=== PATIENT | female | born 1965 | race Caucasian/White ===

== ENCOUNTER → 2020-09-19 15:01 | Outpatient (BNVA) | payer MEDICARE, MEDICAID, SELFPAY | PROVIDERS: PCP Internal Medicine; Visit Provider Dietitian, Registered | DX: Z76.89 Persons encountering health services in other specified circumstances (principal) ==

== ENCOUNTER 2020-09-25 10:37 | Outpatient (REF) | payer MEDICARE, MEDICAID, SELFPAY ==
--- NOTE | 2020-09-25 | MM_ITS ---
EXAMINATION: MM SCREENING DIGITAL BREAST TOMOSYNTHESIS, BILATERAL CLINICAL INFORMATION: Screening. Asymptomatic. The lifetime risk of breast cancer based on the Tyrer-Cuzick Model is 10.8%. COMPARISON: Mammography: 08/24/2019 and multiple previous mammograms dated back to 07/20/2015 TECHNIQUE: Digital breast tomosynthesis is performed in both the craniocaudal and mediolateral oblique views along with computer-aided detection (CAD). Synthesized 2D images are generated from the tomosynthesis. FINDINGS: There are scattered areas of fibroglandular density (ACR BI-RADS breast composition Category b). Left breast: No suspicious masses, calcifications or other abnormalities are seen. Arterial calcifications are noted. Compared to the last study, no significant interval change is noted. Right breast: On craniocaudal view small portion of the anterior most breast is not imaged. No evidence of suspicious masses, calcifications or other abnormalities in the remainder of the breast. Arterial calcifications are noted. MM/MM tomosynthesis screening BI IMPRESSION: 1. No mammographic evidence of malignancy in the left breast. 2. More portion of the anterior right breast is not imaged on craniocaudal view. No mammographic evidence of malignancy in the remainder of the right breast. ASSESSMENT: BI-RADS 0: Incomplete - Need Additional Imaging Evaluation RECOMMENDATION: Technical recall. Repeat right craniocaudal view is recommended.
== END 2020-09-25 10:38 | disposition home or self-care (01) ==
LOC: HO.MAMMO 10:37
PROVIDERS: PCP Internal Medicine; Visit Provider Internal Medicine
DX: Z12.31 Encounter for screening mammogram for malignant neoplasm of breast (principal)
CPT/HCPCS: 77063; 77067

== ENCOUNTER → 2020-09-29 11:00 | Outpatient (BNV) | payer MEDICARE, MEDICAID, SELFPAY | PROVIDERS: PCP Internal Medicine; Visit Provider Internal Medicine Medical Oncology | DX: I26.99 Other pulmonary embolism without acute cor pulmonale (principal) | CPT/HCPCS: 99212; 99213; 99214; 99443 ==

== ENCOUNTER 2020-11-16 09:41 | Outpatient (REF) | payer MEDICARE, MEDICAID, SELFPAY ==
[2020-11-16 11:40] LABS: Alanine Aminotransferase 30 U/L (0-31); Aspartate Amino Transferase 32 U/L (5-31); Cholesterol 197 mg/dL; HDL Cholesterol 74 mg/dL; LDL Cholesterol Calculated 100 mg/dl; Triglycerides 119 mg/dL
== END 2020-11-16 09:42 | disposition home or self-care (01) ==
LOC: HO.HMGCLDS 09:41
PROVIDERS: PCP Internal Medicine; Visit Provider Internal Medicine
DX: I10 Essential (primary) hypertension (principal); E78.5 Hyperlipidemia, unspecified
CPT/HCPCS: 80061; 84450; 84460

== ENCOUNTER → 2020-11-28 09:13 | Outpatient (BNVA) | payer MEDICARE, MEDICAID, SELFPAY | PROVIDERS: PCP Internal Medicine; Referring Provider Internal Medicine; Visit Provider Dietitian, Registered | DX: Z76.89 Persons encountering health services in other specified circumstances (principal) ==

== ENCOUNTER → 2021-01-02 13:33 | Outpatient (BNVA) | payer MEDICARE, MEDICAID, SELFPAY | PROVIDERS: PCP Internal Medicine; Visit Provider Dietitian, Registered ==

== ENCOUNTER → 2021-03-20 08:11 | Outpatient (BNVA) | payer MEDICARE, MEDICAID, SELFPAY | PROVIDERS: PCP Internal Medicine; Visit Provider Dietitian, Registered ==

== ENCOUNTER 2021-03-21 09:51 | Outpatient (REF) | payer MEDICARE, MEDICAID, SELFPAY ==
[2021-03-21 11:31] LABS: MANUAL DIFF FLAG NO
[2021-03-21 11:50] LABS: Basophils Percent Auto 0.2 % (0-2); Eosinophils Absolute Auto 0.1 X10*3/uL (0.0-0.4); Eosinophils Percent Auto 1.4 % (0-4); Hematocrit 39.7 % (37-47); Hemoglobin 12.7 g/dl (12.0-16.0); Imm Gran Abs Auto 0.01 X10*3/uL (0.00-0.03); Imm Gran Pct Auto 0.2 % (0.0-0.4); Lymphocytes Absolute Auto 2.1 X10*3/uL (1.2-4.9); Lymphocytes Percent Auto 36.2 % (20-40); Mean Corpuscular Hemoglobin 26.7 pg (27.0-33.0); Mean Corpuscular Volume 83.4 fL (80-98); Mean Platelet Volume 9.1 fL (9.4-12.3); Monocytes Absolute Auto 0.4 X10*3/uL (0.1-1.2); Monocytes Percent Auto 7.4 % (2-11); Neutrophils Absolute Auto 3.1 X10*3/uL (2.0-8.3); Neutrophils Percent Auto 54.6 % (45-73); Platelet Count 381 X10*3/uL (160-400); Red Blood Count 4.76 X10*6/uL (4.20-5.50); Red Cell Distribution Width 15.7 % (11.0-16.0); White Blood Count 5.7 X10*3/uL (4.8-10.8)
[2021-03-21 11:54] LABS: D Dimer 303 NG/ML
[2021-03-21 12:08] LABS: Alanine Aminotransferase 18 U/L (0-31); Albumin Level 4.1 g/dL (3.5-5.0); Alkaline Phosphatase 100 U/L (39-117); Anion Gap 14 (12-20); Aspartate Amino Transferase 23 U/L (5-31); Bilirubin Total 0.7 mg/dL (0.0-1.0); Blood Urea Nitrogen 21 mg/dL (9-16); Calcium 9.1 mg/dL (8.4-10.2); Carbon Dioxide 21 mmol/L (22-29); Chloride 109 mmol/L (96-108); Cholesterol 180 mg/dL; Estimated Glomerular Filt Rate > 60; Glucose Fasting 97 mg/dL (60-99); HDL Cholesterol 73 mg/dL; LDL Cholesterol Calculated 87 mg/dl; Potassium 4.2 mmol/L (3.3-5.1); Sodium 140 mmol/L (135-145); Total Protein 6.7 g/dL (6.5-8.0); Triglycerides 103 mg/dL
[2021-03-21 12:31] LABS: Vitamin D 25-OH Total 32.6 ng/mL (>30)
== END 2021-03-21 09:52 | disposition home or self-care (01) ==
LOC: HO.HMGCLDS 09:51
PROVIDERS: Internal Medicine Medical Oncology; PCP Internal Medicine; Visit Provider Internal Medicine
DX: I26.99 Other pulmonary embolism without acute cor pulmonale (principal); E78.5 Hyperlipidemia, unspecified; I10 Essential (primary) hypertension; J30.2 Other seasonal allergic rhinitis; Z78.0 Asymptomatic menopausal state
CPT/HCPCS: 36415; 80048; 80053; 80061; 82306; 85025; 85379

== ENCOUNTER 2021-04-27 08:52 | Outpatient (REF) | payer MEDICARE, MEDICAID, SELFPAY ==
[2021-04-28 09:42] LABS: CT PCR NOT DETECTED (Not Detect.); NG PCR NOT DETECTED (Not Detect.)
[2021-05-04 09:27] LABS: HPV mRNA E6/E7 rflx Not Detected (Not Detected)
== END 2021-04-27 08:53 | disposition home or self-care (01) ==
LOC: HO.LAB 08:52
PROVIDERS: PCP Internal Medicine; Visit Provider Obstetrics & Gynecology
DX: Z01.419 Encounter for gynecological examination (general) (routine) without abnormal findings (principal); Z11.3 Encounter for screening for infections with a predominantly sexual mode of transmission; Z11.51 Encounter for screening for human papillomavirus (HPV)
CPT/HCPCS: 87491; 87591; 87624; 88142

== ENCOUNTER → 2021-05-21 08:20 | Outpatient (BNVA) | payer MEDICARE, MEDICAID, SELFPAY | PROVIDERS: PCP Internal Medicine; Visit Provider Physician Assistant ==

== ENCOUNTER 2021-07-03 14:21 | Outpatient (REF) | payer MEDICARE, MEDICAID, SELFPAY ==
[2021-07-03 15:23] LABS: Estimated Average Glucose 108 mg/dL; Hemoglobin A1c % 5.4 %
[2021-07-03 15:40] LABS: Alanine Aminotransferase 18 U/L (0-31); Aspartate Amino Transferase 22 U/L (5-31); Iron 51 mcg/dL (30-160)
[2021-07-03 15:55] LABS: Percent Iron Saturation 9 % (15-50); Total Iron Binding Capacity 543 mcg/dL (228-428); Unsaturated Iron Binding 492 ug/dL
[2021-07-03 16:07] LABS: Folate 18.5 ng/mL (> or = 4.0); Vitamin B12 904 pg/mL (200-900)
[2021-07-03 16:15] LABS: Ferritin 12 ng/mL (10-250)
[2021-07-07 02:56] LABS: Zinc 63 mcg/dL (60-130)
[2021-07-07 10:22] LABS: Vitamin B1 44 nmol/L (8-30)
[2021-07-09 05:02] LABS: Vitamin A 58 mcg/dL (38-98)
== END 2021-07-03 14:22 | disposition home or self-care (01) ==
LOC: HO.LAB 14:21
PROVIDERS: PCP Internal Medicine; Visit Provider Physician Assistant
DX: E66.9 Obesity, unspecified (principal); E78.5 Hyperlipidemia, unspecified; I10 Essential (primary) hypertension; J30.2 Other seasonal allergic rhinitis; Z98.84 Bariatric surgery status; Z79.899 Other long term (current) drug therapy; Z68.39 Body mass index [BMI] 39.0-39.9, adult
CPT/HCPCS: 36415; 82607; 82728; 82746; 83036; 83540; 84425; 84450; 84460; 84590; 84630; 99212

== ENCOUNTER → 2021-07-10 14:22 | Outpatient (BNVA) | payer MEDICARE, MEDICAID, SELFPAY | PROVIDERS: PCP Internal Medicine; Referring Provider Internal Medicine; Visit Provider Internal Medicine | DX: Q21.1 Atrial septal defect (principal); I25.3 Aneurysm of heart; E66.01 Morbid (severe) obesity due to excess calories; Z86.711 Personal history of pulmonary embolism | CPT/HCPCS: 93005; 99212 ==

== ENCOUNTER → 2021-09-21 08:44 | Outpatient (BNVA) | payer MEDICARE, MEDICAID, SELFPAY | PROVIDERS: PCP Internal Medicine; Visit Provider Dietitian, Registered | DX: E66.9 Obesity, unspecified (principal) | CPT/HCPCS: 97803 ==

== ENCOUNTER 2021-10-02 09:19 | Outpatient (REF) | payer MEDICARE, MEDICAID, SELFPAY ==
[2021-10-02 12:22] LABS: Alanine Aminotransferase 17 U/L (0-31); Aspartate Amino Transferase 20 U/L (5-31); Cholesterol 211 mg/dL; HDL Cholesterol 70 mg/dL; LDL Cholesterol Calculated 110 mg/dl; Triglycerides 155 mg/dL
== END 2021-10-02 09:20 | disposition home or self-care (01) ==
LOC: HO.HMGCLDS 09:19
PROVIDERS: PCP Internal Medicine; Visit Provider Internal Medicine
DX: E78.00 Pure hypercholesterolemia, unspecified (principal)
CPT/HCPCS: 36415; 80061; 84450; 84460

== ENCOUNTER 2021-11-02 10:10 | Outpatient (REF) | payer MEDICARE, MEDICAID, SELFPAY ==
--- NOTE | ~2021-11-02 | MM_ITS ---
EXAMINATION: MM SCREENING DIGITAL BREAST TOMOSYNTHESIS, BILATERAL CLINICAL INFORMATION: Screening. Asymptomatic. The lifetime risk of breast cancer based on the Tyrer-Cuzick Model is 11%. COMPARISON: Mammography: 09/25/2020, 08/31/2019, 08/26/2018 TECHNIQUE: Digital breast tomosynthesis is performed in both the craniocaudal and mediolateral oblique views along with computer-aided detection (CAD). Synthesized 2D images are generated from the tomosynthesis. Additional bilateral CC, right MLO, and left MLO x2 views are provided. FINDINGS: There are scattered areas of fibroglandular density (ACR BI-RADS breast composition Category b). Breast tissue composition borders on predominantly fatty. Parenchymal pattern and background stromal markings are similar to previous exams. No developing density. No significant mass or architectural abnormality or abnormal calcifications. MM/MM tomosynthesis screening BI IMPRESSION: No mammographic evidence of malignancy. ASSESSMENT: BI-RADS 1: Negative RECOMMENDATION: Routine annual mammography screening. This patient's information was entered into a reminder system with a target due date for their next mammogram.
== END 2021-11-02 10:11 | disposition home or self-care (01) ==
LOC: HO.MAMMO 10:10
PROVIDERS: Visit Provider Internal Medicine
DX: Z12.31 Encounter for screening mammogram for malignant neoplasm of breast (principal)
CPT/HCPCS: 77063; 77067

== ENCOUNTER 2021-11-27 10:37 | Outpatient (REF) | payer MEDICARE, MEDICAID, SELFPAY | END 2021-11-27 10:38 | disposition home or self-care (01) | LOC: HO.WFDLDS 10:37 | PROVIDERS: Visit Provider Internal Medicine | DX: Z20.822 Contact with and (suspected) exposure to COVID-19 (principal) | CPT/HCPCS: C9803; U0003; U0005 ==

== ENCOUNTER 2022-04-19 11:25 | Outpatient (REF) | payer MEDICARE, MEDICAID, SELFPAY ==
[2022-04-19 13:23] LABS: Iron 55 mcg/dL (30-160); Percent Iron Saturation 11 % (15-50); Total Iron Binding Capacity 514 mcg/dL (228-428); Unsaturated Iron Binding 459 ug/dL
[2022-04-19 13:43] LABS: Vitamin D 25-OH Total 26.3 ng/mL (>30)
[2022-04-19 14:38] LABS: Folate 9.5 ng/mL (> or = 4.0); Vitamin B12 351 pg/mL (200-900)
[2022-04-24 06:05] LABS: Zinc 59 mcg/dL (60-130)
[2022-04-24 16:00] LABS: Vitamin B1 10 nmol/L (8-30)
[2022-04-24 20:46] LABS: Vitamin A 38 mcg/dL (38-98)
== END 2022-04-19 11:26 | disposition home or self-care (01) ==
LOC: HO.LAB 11:25
PROVIDERS: PCP Internal Medicine; Referring Provider Internal Medicine; Visit Provider Physician Assistant Surgical
DX: E66.9 Obesity, unspecified (principal); Z98.84 Bariatric surgery status; Z79.899 Other long term (current) drug therapy; Z71.3 Dietary counseling and surveillance
CPT/HCPCS: 36415; 82306; 82607; 82746; 83540; 84425; 84590; 84630; 99212

== ENCOUNTER 2022-05-01 09:41 | Outpatient (REF) | payer MEDICARE, MEDICAID, SELFPAY ==
[2022-05-01 09:58] LABS: MANUAL DIFF FLAG NO
[2022-05-01 10:03] LABS: Basophils Percent Auto 0.3 % (0-2); Eosinophils Absolute Auto 0.1 X10*3/uL (0.0-0.4); Eosinophils Percent Auto 1.4 % (0-4); Hematocrit 40.9 % (37.0-47.0); Hemoglobin 13.1 g/dl (12.0-16.0); Imm Gran Abs Auto 0.02 X10*3/uL (0.00-0.03); Imm Gran Pct Auto 0.3 % (0.0-0.4); Lymphocytes Absolute Auto 1.6 X10*3/uL (1.2-4.9); Lymphocytes Percent Auto 22.5 % (20-40); Mean Corpuscular Hemoglobin 26.6 pg (27.0-33.0); Mean Platelet Volume 8.8 fL (9.4-12.3); Monocytes Absolute Auto 0.5 X10*3/uL (0.1-1.2); Monocytes Percent Auto 6.6 % (2-11); Neutrophils Absolute Auto 4.9 x10*3/uL (2.0-8.3); Neutrophils Percent Auto 68.9 % (45-73); Platelet Count 401 X10*3/uL (160-400); Red Blood Count 4.93 X10*6/uL (4.20-5.50); Red Cell Distribution Width 15.2 % (11.0-16.0); White Blood Count 7.1 X10*3/uL (4.8-10.8)
[2022-05-01 10:20] LABS: D Dimer High Sensitivity < 150 NG/ML
[2022-05-01 10:57] LABS: Alanine Aminotransferase 14 U/L (0-31); Albumin Level 4.3 g/dL (3.5-5.0); Alkaline Phosphatase 108 U/L (39-117); Anion Gap 16 (12-20); Aspartate Amino Transferase 20 U/L (5-31); Bilirubin Total 0.7 mg/dL (0.0-1.0); Blood Urea Nitrogen 25 mg/dL (9-16); Calcium 9.5 mg/dL (8.4-10.2); Carbon Dioxide 19 mmol/L (22-29); Chloride 110 mmol/L (96-108); Estimated Glomerular Filt Rate > 60; Glucose Random 95 mg/dL (60-115); Potassium 4.5 mmol/L (3.3-5.1); Sodium 140 mmol/L (135-145)
== END 2022-05-01 09:42 | disposition home or self-care (01) ==
LOC: HO.LAB 09:41
PROVIDERS: PCP Internal Medicine; Visit Provider Internal Medicine Medical Oncology
DX: I26.99 Other pulmonary embolism without acute cor pulmonale (principal)
CPT/HCPCS: 36415; 80053; 85025; 85379

== ENCOUNTER → 2022-05-20 13:54 | Outpatient (BNVA) | payer MEDICARE, MEDICAID, SELFPAY | PROVIDERS: PCP Internal Medicine; Visit Provider Dietitian, Registered | DX: E66.01 Morbid (severe) obesity due to excess calories (principal); Z68.41 Body mass index [BMI] 40.0-44.9, adult; Z98.84 Bariatric surgery status; Z71.3 Dietary counseling and surveillance | CPT/HCPCS: 97803 ==

== ENCOUNTER 2022-05-24 08:00 | Outpatient (RCR) | payer MEDICARE, MEDICAID, SELFPAY | END 2022-05-24 09:13 | disposition home or self-care (01) | LOC: HO.PT 08:00 | PROVIDERS: PCP Internal Medicine; Visit Provider Orthopaedic Surgery | DX: M25.562 Pain in left knee (principal) | CPT/HCPCS: 97110; 97116; 97140; 97161; 97530 ==

== ENCOUNTER → 2022-07-11 14:19 | Outpatient (BNVA) | payer MEDICARE, MEDICAID, SELFPAY | PROVIDERS: PCP Internal Medicine; Referring Provider Internal Medicine; Visit Provider Internal Medicine | DX: Q21.1 Atrial septal defect (principal); I25.3 Aneurysm of heart; E66.01 Morbid (severe) obesity due to excess calories; Z86.711 Personal history of pulmonary embolism | CPT/HCPCS: 93005; 99212 ==

== ENCOUNTER 2022-07-31 09:16 | Outpatient (REF) | payer MEDICARE, MEDICAID, SELFPAY ==
[2022-07-31 12:02] LABS: Cholesterol 195 mg/dL; HDL Cholesterol 69 mg/dL; LDL Cholesterol Calculated 102 mg/dl; Triglycerides 123 mg/dL
== END 2022-07-31 09:17 | disposition home or self-care (01) ==
LOC: HO.HMGCLDS 09:16
PROVIDERS: PCP Internal Medicine; Visit Provider Internal Medicine Medical Oncology
DX: E78.00 Pure hypercholesterolemia, unspecified (principal); Z86.711 Personal history of pulmonary embolism
CPT/HCPCS: 36415; 80061

== ENCOUNTER → 2022-08-06 08:43 | Outpatient (BNVA) | payer MEDICARE, MEDICAID, SELFPAY | PROVIDERS: PCP Internal Medicine; Visit Provider Dietitian, Registered | DX: E66.01 Morbid (severe) obesity due to excess calories (principal); Z68.41 Body mass index [BMI] 40.0-44.9, adult; Z71.3 Dietary counseling and surveillance | CPT/HCPCS: 97803 ==

== ENCOUNTER → 2022-08-21 17:00 | Outpatient (BNVA) | payer MEDICARE, MEDICAID, SELFPAY | PROVIDERS: PCP Internal Medicine; Visit Provider Counselor Mental Health | DX: F32.A Depression, unspecified (principal); Z98.84 Bariatric surgery status | CPT/HCPCS: 90853 ==

== ENCOUNTER → 2022-09-18 17:00 | Outpatient (BNVA) | payer MEDICARE, MEDICAID, SELFPAY | PROVIDERS: PCP Internal Medicine; Visit Provider Counselor Mental Health | DX: F32.A Depression, unspecified (principal); Z98.84 Bariatric surgery status | CPT/HCPCS: 90853 ==

== ENCOUNTER 2022-11-05 10:14 | Outpatient (REF) | payer MEDICARE, MEDICAID, SELFPAY ==
--- NOTE | ~2022-11-05 | MM_ITS ---
EXAMINATION: MM SCREENING DIGITAL BREAST TOMOSYNTHESIS, BILATERAL CLINICAL INFORMATION: Screening. Asymptomatic. The lifetime risk of breast cancer based on the Tyrer-Cuzick Model is 19.9%. Additional annual screening with breast MRI may be of benefit in women with a score of 20% or greater. COMPARISON: Mammography: November 02, 2021 and studies dating back to July 22, 2016 TECHNIQUE: Digital breast tomosynthesis is performed in both the craniocaudal and mediolateral oblique views along with computer-aided detection (CAD). Synthesized 2D images are generated from the tomosynthesis. FINDINGS: There are scattered areas of fibroglandular density (ACR BI-RADS breast composition Category b). There are no significant masses, abnormal calcifications, or other abnormalities. MM/MM tomosynthesis screening BI IMPRESSION: No significant changes from prior exam. ASSESSMENT: BI-RADS 1: Negative RECOMMENDATION: Routine annual mammography screening. This patient's information was entered into a reminder system with a target due date for their next mammogram.
== END 2022-11-05 10:15 | disposition home or self-care (01) ==
LOC: HO.MAMMO 10:14
PROVIDERS: PCP Internal Medicine; Visit Provider Internal Medicine
DX: Z12.31 Encounter for screening mammogram for malignant neoplasm of breast (principal)
CPT/HCPCS: 77063; 77067

== ENCOUNTER 2022-11-07 10:00 | Outpatient (RCR) | payer MEDICARE, MEDICAID, SELFPAY ==
--- NOTE | 2022-11-11 11:09 | MHC.PT.DC ---
[facility] [place] Office [place] Office [place] Office [address] Adali Guan [address] [phone] F: [phone] F: [phone] F: [phone] F: [phone] Physical Therapy Discharge Report Diagnosis: L TKA Date of Surgery: 08/27/2022 Date of Evaluation: 09/06/22 Date of Discharge: 11/07/22 Treatments to Date: 17 Cancellations to Date: No Shows to Date: Discharge Status: Achieved Goals Improved Function Independent with HEP Discharge Summary: Pt independent w/HEP and AROM WFL'S Flex/Ext. -Strength =5/5 in Flex/Ext -Significant improvement w/SPADI Discharged to HEP. Electronically signed by: Amilcar Padron, PT, DPT Please sign and return to therapist. Thank you for your referral.
== END 2022-11-11 11:11 | disposition home or self-care (01) ==
LOC: HO.PT 10:00
PROVIDERS: PCP Internal Medicine; Visit Provider Nurse Practitioner
DX: Z96.652 Presence of left artificial knee joint (principal)
CPT/HCPCS: 97110; 97140; 97162; 97530

== ENCOUNTER 2022-12-06 06:47 | Outpatient (REF) | payer MEDICARE, MEDICAID, SELFPAY ==
[2022-12-06 11:57] LABS: Estimated Average Glucose 108 mg/dL; Hemoglobin A1c % 5.4 %
[2022-12-06 12:33] LABS: Alanine Aminotransferase 14 U/L (0-31); Anion Gap 13 (12-20); Aspartate Amino Transferase 17 U/L (5-31); Blood Urea Nitrogen 18 mg/dL (9-16); Carbon Dioxide 23 mmol/L (22-29); Chloride 108 mmol/L (96-108); Cholesterol 188 mg/dL; Estimated Glomerular Filt Rate > 60; Glucose Fasting 94 mg/dL (60-99); HDL Cholesterol 76 mg/dL; LDL Cholesterol Calculated 96 mg/dl; Potassium 4.2 mmol/L (3.3-5.1); Sodium 140 mmol/L (135-145); Triglycerides 84 mg/dL
[2022-12-06 12:49] LABS: Vitamin D 25-OH Total 27.8 ng/mL (>30)
== END 2022-12-06 06:48 | disposition home or self-care (01) ==
LOC: HO.HMGCLDS 06:47
PROVIDERS: PCP Internal Medicine; Visit Provider Internal Medicine
DX: E66.01 Morbid (severe) obesity due to excess calories (principal); F32.9 Major depressive disorder, single episode, unspecified; I10 Essential (primary) hypertension; E78.5 Hyperlipidemia, unspecified; R73.01 Impaired fasting glucose
CPT/HCPCS: 36415; 80048; 80061; 82306; 83036; 84450; 84460

== ENCOUNTER 2023-01-07 09:46 | Outpatient (REF) | payer MEDICARE, MEDICAID, SELFPAY ==
[2023-01-07 11:28] LABS: MANUAL DIFF FLAG NO
[2023-01-07 11:34] LABS: Basophils Percent Auto 0.2 % (0-2); Eosinophils Absolute Auto 0.2 X10*3/uL (0.0-0.4); Eosinophils Percent Auto 3.8 % (0-4); Hematocrit 38.7 % (37.0-47.0); Hemoglobin 12.2 g/dl (12.0-16.0); Imm Gran Abs Auto 0.02 X10*3/uL (0.00-0.03); Imm Gran Pct Auto 0.4 % (0.0-0.4); Lymphocytes Absolute Auto 1.6 X10*3/uL (1.2-4.9); Lymphocytes Percent Auto 28.4 % (20-40); Mean Corpuscular HGB Conc 31.5 g/dl (31.0-35.0); Mean Corpuscular Hemoglobin 24.3 pg (27.0-33.0); Mean Corpuscular Volume 77.1 fL (80.0-98.0); Mean Platelet Volume 9.3 fL (9.4-12.3); Monocytes Absolute Auto 0.4 X10*3/uL (0.1-1.2); Monocytes Percent Auto 6.9 % (2-11); Neutrophils Absolute Auto 3.3 x10*3/uL (2.0-8.3); Neutrophils Percent Auto 60.3 % (45-73); Platelet Count 415 X10*3/uL (160-400); Red Blood Count 5.02 X10*6/uL (4.20-5.50); White Blood Count 5.5 X10*3/uL (4.8-10.8)
[2023-01-07 11:38] LABS: D Dimer High Sensitivity 460 NG/ML
[2023-01-07 12:07] LABS: Alanine Aminotransferase 13 U/L (0-31); Albumin Level 4.2 g/dL (3.5-5.0); Alkaline Phosphatase 119 U/L (39-117); Anion Gap 15 (12-20); Aspartate Amino Transferase 18 U/L (5-31); Bilirubin Total 0.6 mg/dL (0.0-1.0); Blood Urea Nitrogen 21 mg/dL (9-16); Calcium 9.3 mg/dL (8.4-10.2); Carbon Dioxide 22 mmol/L (22-29); Chloride 107 mmol/L (96-108); Estimated Glomerular Filt Rate > 60; Glucose Random 99 mg/dL (60-115); Potassium 4.3 mmol/L (3.3-5.1); Sodium 140 mmol/L (135-145); Total Protein 6.7 g/dL (6.5-8.0)
== END 2023-01-07 09:47 | disposition home or self-care (01) ==
LOC: HO.HMGCLDS 09:46
PROVIDERS: PCP Internal Medicine; Visit Provider Internal Medicine Medical Oncology
DX: Z86.711 Personal history of pulmonary embolism (principal)
CPT/HCPCS: 36415; 80053; 85025; 85379

== ENCOUNTER 2023-03-18 07:45 | Outpatient (REF) | payer MEDICARE, MEDICAID, SELFPAY ==
[2023-03-18 12:05] LABS: Estimated Average Glucose 108 mg/dL; Hemoglobin A1c % 5.4 %
[2023-03-18 12:51] LABS: Alanine Aminotransferase 16 U/L (0-31); Anion Gap 14 (12-20); Aspartate Amino Transferase 18 U/L (5-31); Blood Urea Nitrogen 18 mg/dL (9-16); Calcium 9.2 mg/dL (8.4-10.2); Carbon Dioxide 23 mmol/L (22-29); Chloride 107 mmol/L (96-108); Cholesterol 195 mg/dL; Estimated Glomerular Filt Rate > 60; Glucose Fasting 95 mg/dL (60-99); HDL Cholesterol 74 mg/dL; LDL Cholesterol Calculated 101 mg/dl; Potassium 4.2 mmol/L (3.3-5.1); Sodium 140 mmol/L (135-145); Triglycerides 103 mg/dL
== END 2023-03-18 07:46 | disposition home or self-care (01) ==
LOC: HO.HMGCLDS 07:45
PROVIDERS: PCP Internal Medicine; Visit Provider Internal Medicine
DX: E66.01 Morbid (severe) obesity due to excess calories (principal); E78.00 Pure hypercholesterolemia, unspecified; F32.A Depression, unspecified; I10 Essential (primary) hypertension
CPT/HCPCS: 36415; 80048; 80061; 82306; 83036; 84450; 84460

== ENCOUNTER → 2023-05-02 13:42 | Outpatient (BNVA) | payer MEDICARE, MEDICAID, SELFPAY | PROVIDERS: PCP Internal Medicine; Visit Provider Physician Assistant Surgical | DX: E66.9 Obesity, unspecified (principal); Z68.39 Body mass index [BMI] 39.0-39.9, adult; Z98.84 Bariatric surgery status | CPT/HCPCS: 99212 ==

== ENCOUNTER 2023-05-06 11:58 | Outpatient (REF) | payer MEDICARE, MEDICAID, SELFPAY ==
[2023-05-06 14:16] LABS: Folate 6.3 ng/mL (> or = 4.0); Vitamin B12 360 pg/mL (200-900)
[2023-05-07 13:24] LABS: Calcium (PTHI) 10.1 mg/dL (8.6-10.4); PTHI 53 pg/mL (16-77)
[2023-05-10 00:18] LABS: Zinc 59 mcg/dL (60-130)
[2023-05-12 01:37] LABS: Vitamin A 54 mcg/dL (38-98)
[2023-05-13 15:18] LABS: Vitamin B1 72 nmol/L (8-30)
== END 2023-05-06 11:59 | disposition home or self-care (01) ==
LOC: HO.LAB 11:58
PROVIDERS: PCP Internal Medicine; Visit Provider Physician Assistant Surgical
DX: Z98.84 Bariatric surgery status (principal)
CPT/HCPCS: 36415; 82607; 82746; 83970; 84425; 84590; 84630

== ENCOUNTER 2023-07-08 09:23 | Outpatient (REF) | payer MEDICARE, MEDICAID, SELFPAY ==
[2023-07-08 11:34] LABS: Estimated Average Glucose 105 mg/dL; Hemoglobin A1c % 5.3 %
[2023-07-08 12:08] LABS: Alanine Aminotransferase 19 U/L (0-31); Anion Gap 13 (12-20); Aspartate Amino Transferase 24 U/L (5-31); Blood Urea Nitrogen 17 mg/dL (9-16); Calcium 9.5 mg/dL (8.4-10.2); Carbon Dioxide 23 mmol/L (22-29); Chloride 108 mmol/L (96-108); Cholesterol 171 mg/dL; Estimated Glomerular Filt Rate > 60; Glucose Fasting 89 mg/dL (60-99); HDL Cholesterol 68 mg/dL; LDL Cholesterol Calculated 87 mg/dl; Potassium 4.2 mmol/L (3.3-5.1); Sodium 140 mmol/L (135-145); Triglycerides 83 mg/dL
[2023-07-08 12:28] LABS: TSH reflex Free T4 0.77 uIU/mL (0.32-4.0); Vitamin D 25-OH Total 41.5 ng/mL (>30)
== END 2023-07-08 09:24 | disposition home or self-care (01) ==
LOC: HO.HMGCLDS 09:23
PROVIDERS: PCP Internal Medicine; Visit Provider Internal Medicine
DX: E55.9 Vitamin D deficiency, unspecified (principal); E66.01 Morbid (severe) obesity due to excess calories; E78.5 Hyperlipidemia, unspecified; I10 Essential (primary) hypertension; R73.01 Impaired fasting glucose; Z98.84 Bariatric surgery status
CPT/HCPCS: 36415; 80048; 80061; 82306; 83036; 84443; 84450; 84460

== ENCOUNTER 2023-07-15 11:11 | Outpatient (AMB) | payer MEDICARE, MEDICAID, SELFPAY ==
--- NOTE | 2023-07-15 11:14 | MHC.PC.OV ---
Vital Signs 07/15/23 11:15 Height 5 ft 8 in Weight 270 lb BMI 41.0 BP 126/74 Blood Pressure Location Lt brachial Position Sitting Pulse 76 Pulse Source Pulse Oximeter Pulse Oximetry (%) 98 Intake Visit Reasons: follow up Intake Note: pt is here for f/u labs Allergies No Known Allergies Allergy (Verified 07/15/23 11:58) Medication List - Last Reconciled 07/15/23 by Denisha Schwartz MD calcium citrate-vitamin D3 315 mg-5 mcg (200 unit) 1 tab PO BID [Celebrate MVI 1 tab PO DAILY] cholecalciferol (vitamin D3) 50 mcg PO DAILY clotrimazole-betamethasone 1-0.05 % 1 appl topical BID 10 days cyclobenzaprine 10 mg PO BEDTIME PRN famotidine (Pepcid) 40 mg PO DAILY fluoxetine 10 mg PO DAILY fluoxetine 20 mg PO QAM fluticasone propionate 50 mcg/actuation 1 spray intranasal DAILY hydrochlorothiazide 12.5 mg PO 3XW PRN levocetirizine 5 mg PO DAILY magnesium oxide 500 mg PO DAILY rivaroxaban (Xarelto) 10 mg PO DAILY rosuvastatin 5 mg PO DAILY zinc gluconate 10 mg PO DAILY Tobacco use date assessed: 03/18/23 Dental Screening Dental Screen Date: 07/15/23 Did you have a dental visit in the last 12 months?: Yes Did you have a dental problem in the last 6 months where you did not have access to dental care?: No Was dental information given to patient?: Patient has dentist HPI follow up HPI Details 58-year-old lady hyperlipidemia, hypertension, obesity s/p gastric bypass, history of pulmonary embolism currently on rivaroxaban oxide, has depression, history of vitamin-D deficiency, osteoarthritis, here today for follow-up. She has been compliant with taking her medications, recent fasting labs showed normal fasting lipids, fasting glucose, electrolytes, liver enzymes, vitamin-D level and thyroid stimulating hormone level [facility] Medical History Vitamin D deficiency Umbilical hernia Uterine fibroid Cervical dysplasia Primary osteoarthritis of both knees Pulmonary embolism Seasonal allergies Obesity Steatosis, liver History of pulmonary embolism Osteoarthritis Depression Gastric reflux Hiatal hernia Hypertension Hyperlipidemia Surgical History S/P gastric bypass Status post right knee replacement History of right hip replacement H/O bariatric surgery History of cholecystectomy H/O umbilical hernia repair Family History Father Mental health disorder Sister Lymph node cancer Mental health disorder Thyroid disorder Mother Lymph node cancer Mental health disorder Mother Tumor Brother Substance use disorder Social History Household Members: Spouse Housing: Apartment Are you a primary patient care coordinator to a significant other at home: No Do you presently have visiting nurse or other home services: No Alcohol intake: current Alcohol intake frequency: holidays/special occasions only Patient Tobacco Use Status: Never used Tobacco e-Cigarette/Vaping Use: Never Used service: No Current occupational status: unemployed and disabled Gender identity: Female Cognitive needs: No Hearing needs: No Vision needs: Yes Female Reproductive History Menstrual Age of Menarche: 12 Questionnaire Thrive Questionnaire Date Thrive assessed: 12/10/22 ENDY-7 AMB Questionnaire ENDY-7 Date ENDY - 7 assessed: 03/18/23 Source: Developed by Drs. Tye May, Courtney Bolaños, Lee Candelaria and colleagues, with an educational joann from [employer]. Review of Systems Const Denies weakness Eyes Details: sees Danna Brunson ENT Denies dizziness Card Denies chest pain, Denies chest pain with activity, Denies syncope, Denies rapid heart rate, Denies pedal edema, Denies lightheadedness, Denies palpitations, Denies dyspnea and Denies dyspnea on exertion Resp Denies cough, Denies dyspnea and Denies dyspnea on exertion GI Denies hematochezia and Denies change in stool character Musc Denies abnormal gait, Denies muscle cramps, Denies muscle weakness, Denies numbness, Denies radiating pain into limb and Denies tingling Neuro Denies abnormal gait, Denies dizziness, Denies syncope, Denies numbness, Denies tingling and Denies weakness Endo Denies palpitations Physical exam (Primary Care) Vital Signs: Last Vital Signs Pulse 76 07/15/23 11:15 BP 126/74 07/15/23 11:15 Pulse Ox 98 07/15/23 11:15 BMI result Body Mass Index 41.0 Tobacco/Smoking Status: Tobacco use Status Tobacco use date assessed 03/18/23 07/15/23 11:15 Patient Tobacco Use Status Never used Tobacco 07/15/23 11:15 e-Cigarette/Vaping Use Never Used 07/15/23 11:15 Thrive Assessment: Date of Thrive Assessment Date Thrive assessed 12/10/22 07/15/23 11:15 Const Other: Obese, Alert oriented x3, ambulatory with normal gait Orientation/consciousness: patient oriented x3 HENMT Mouth: Normal oral and palatal mucosa present and moist mucous membranes Eyes General: appearance normal, both eyes and all related structures Neck Other: Supple, no lymphadenopathy thyroid gland nonpalpable Resp Auscultation: clear to auscultation bilaterally Cardio Other: S1-S2 present regular rate and rhythm GI Other: Obese, soft, nontender with no mass palpated Back/Spine/Pelvis Thoracic/Lumbar Spine: thoraco-lumbar ROM normal and straight leg raise negative bilaterally Neuro General: patient oriented x3, gait normal, moves all extremities, Normal light touch and pain sensation and no focal motor deficits Extrem General: Yes full ROM, Yes no clubbing, cyanosis or edema and Yes normal gait Psych Appearance: grossly normal and well kempt Speech and movement: Normal speech and movement present Affect: normal affect Attitude: cooperative Thought process: Normal thought process present Results Reviewed Results Reviewed: ENTERED: 07/08/23 YOLANDA COSBY: ORDERED: Met Prof Fast, AST, ALT, Lipid Panel, Vitamin D 25-OH, TSH Rflx Test Result Flag Reference Site Sodium 140 135-145 mmol/L Potassium 4.2 3.3-5.1 mmol/L CL 108 96-108 mmol/L CO2 23 22-29 mmol/L Gap 13 12-20 BUN 17 H 9-16 mg/dL Creat 0.70 0.5-1.4 mg/dL EGFR > 60 NOTE: For -Brazilian individuals, multiply the result by 1.210. Chronic Kidney Disease: Estimated GFR < 60 mL/min/1.73m2 Severe Kidney Disease: Estimated GFR < 15 mL/min/1.73m2 FBS 89 60-99 mg/dL CA 9.5 8.4-10.2 mg/dL AST (GOT) 24 5-31 U/L ALT (GPT) 19 0-31 U/L Triglyceride 83 mg/dL Desirable Triglyceride: less than 150 mg/dL Borderline High Triglyceride 150-199 mg/dL High Triglyceride: 200-499 mg/dL Very High Triglyceride: greater than or equal to 5OO mg/dL Chol 171 mg/dL Desirable Cholesterol: less than 200 mg/dL Borderline High Cholesterol: 200-239 mg/dL High Cholesterol: greater than 239 mg/dL LDL Calculated 87 mg/dl Desirable LDL: less than 100 mg/dL Near Optimal/Above Optimal LDL: 110-129 mg/dL Borderline High LDL: 130-159 mg/dL High LDL: 160-189 mg/dL Very High LDL: greater than or equal to 190 mg/dL HDL 68 mg/dL Desirable HDL: greater than 40 mg/dL Note: This HDL assay may give artificially low results in patients with liver disease. Vit D 25-OH Tot 41.5 >30 ng/mL Health Based Reference Values* < 20 ng/mL Deficient 20-30 ng/mL Insufficient > 30 ng/mL Sufficient *Trey SIMMONS. N Engl J Med. 2007;357:266-280 Care must be taken in interpreting Vitamin D results from different laboratories and methodologies. Published data demonstrated that results from patients undergoing hemodialysis may show a negative bias when tested with various automated 25-OH vitamin D assays when compared to LC-MS/MS. When testing samples from patients whose predominant form of Vitamin D is Vitamin D2, such as patients receiving Vitamin D2 supplementation, results that are subtherapeutic should be confirmed with another method such as LC-MS/MS. TSH 0.77 0.32-4.0 uIU/mL Assessment and Plan Assessment & Plan (1) Morbid obesity: Code(s): E66.01 - Morbid (severe) obesity due to excess calories Plan: Currently followed at the weight loss clinic in [place], continue with recommended diet, and get regular exercise daily. (2) Hypertension: Code(s): I10 - Essential (primary) hypertension Qualifiers: Hypertension type: essential hypertension Qualified Code(s): I10 - Essential (primary) hypertension Plan: Continue with current medication. Reinforced importance of following a low sodium diet, getting regular exercise, and lowering stress levels (3) Hyperlipidemia: Code(s): E78.5 - Hyperlipidemia, unspecified Qualifiers: Hyperlipidemia type: pure hypercholesterolemia Qualified Code(s): E78.00 - Pure hypercholesterolemia, unspecified Plan: Reviewed recent fasting lipid profile with patient with levels . Continue with , in addition to adherence to low-cholesterol diet and regular exercise, at least 30 minutes 3 to 4 times a week. Advised patient to make healthy food choices, eat more fruits, vegetables, whole grains, wild caught fish and low-fat dairy. Limit amount of meat and fried or fatty food products, as well as processed foods and fast foods. Follow-up scheduled with repeat fasting lipid panel in 6 months. Coding Level of Care Code Est Pt Level 4 (55360) Diagnoses Morbid obesity E66.01 Essential hypertension I10 Hypertension type: essential hypertension Pure hypercholesterolemia E78.00 Hyperlipidemia type: pure hypercholesterolemia
[2023-07-15 11:15] VITALS: BP 126/74; PULSE 76; O2SAT 98; BMI 41.0
== END 2023-07-15 12:30 | disposition home or self-care (01) ==
PROVIDERS: PCP Internal Medicine; Visit Provider Internal Medicine
DX: I10 Essential (primary) hypertension (principal); E66.01 Morbid (severe) obesity due to excess calories; Z68.41 Body mass index [BMI] 40.0-44.9, adult; E78.00 Pure hypercholesterolemia, unspecified
CPT/HCPCS: 99214

== ENCOUNTER 2023-07-17 14:05 | Outpatient (AMB) | payer MEDICARE, MEDICAID, SELFPAY ==
--- NOTE | 2023-07-17 14:14 | A.OFFVIS_ITS ---
Intake Vital Signs 07/17/23 14:15 Height 5 ft 8 in Weight 268 lb 8.368 oz BMI 40.8 BP 136/90 H Blood Pressure Location Rt brachial Position Sitting Pulse 83 Intake Visit Reasons: 1 year follow up Intake Note: 1 year follow up w/ EKG Valve Setter Required: No Allergies No Known Allergies Allergy (Verified 07/15/23 11:58) Medication List - Last Reconciled 07/17/23 by Gurinder Rosenberg MD calcium citrate-vitamin D3 315 mg-5 mcg (200 unit) 1 tab PO BID [Celebrate MVI 1 tab PO DAILY] cholecalciferol (vitamin D3) 50 mcg PO DAILY clotrimazole-betamethasone 1-0.05 % 1 appl topical BID 10 days cyclobenzaprine 10 mg PO BEDTIME PRN famotidine (Pepcid) 40 mg PO DAILY fluoxetine 10 mg PO DAILY fluoxetine 20 mg PO QAM fluticasone propionate 50 mcg/actuation 1 spray intranasal DAILY hydrochlorothiazide 12.5 mg PO 3XW PRN levocetirizine 5 mg PO DAILY magnesium oxide 500 mg PO DAILY rivaroxaban (Xarelto) 10 mg PO DAILY rosuvastatin 5 mg PO DAILY zinc gluconate 10 mg PO DAILY HPI HPI Comments History of Present Illness Details Ramandeep returns for follow-up. She was originally seen for preoperative risk stratification for bariatric surgery few years back. Per patient, she weighed more than 300 lb before surgery. Then she lost lot of weight but has gained a lot of it back too. During workup in that regard, she was detected to have patent foramen ovale/atrial septal aneurysm. No known coronary disease myocardial infarction or cardiomyopathy. She did have a history of DVT/PE 2016. Overall, she is doing fine. No specific symptoms or concerns from cardiac. [facility] Medical History (Updated 07/15/23 @ 12:52 by Denisha Schwartz MD) Cervical dysplasia Depression Gastric reflux Hiatal hernia History of pulmonary embolism Hyperlipidemia Hypertension Obesity Osteoarthritis Primary osteoarthritis of both knees Pulmonary embolism Seasonal allergies Steatosis, liver Umbilical hernia Uterine fibroid Vitamin D deficiency Surgical History H/O bariatric surgery H/O umbilical hernia repair History of cholecystectomy History of right hip replacement S/P gastric bypass Status post right knee replacement Family History Father Mental health disorder Sister Lymph node cancer Mental health disorder Thyroid disorder Mother Lymph node cancer Mental health disorder Mother Tumor Brother Substance use disorder Social History Household Members: Spouse Housing: Apartment Are you a primary acute care assistant to a significant other at home: No Do you presently have visiting nurse or other home services: No Alcohol intake: current Alcohol intake frequency: holidays/special occasions only Patient Tobacco Use Status: Never used Tobacco e-Cigarette/Vaping Use: Never Used service: No Current occupational status: unemployed and disabled Gender identity: Female Cognitive needs: No Hearing needs: No Vision needs: Yes Female Reproductive History Menstrual Age of Menarche: 12 Review of Systems Const Denies weakness ENT Denies dizziness Card Denies chest pain, Denies chest pain with activity, Denies syncope, Denies rapid heart rate, Denies pedal edema, Denies edema, Denies leg edema, Denies lightheadedness, Denies palpitations, Denies dyspnea, Denies dyspnea on exertion and Denies orthopnea Resp Denies cough, Denies dyspnea and Denies dyspnea on exertion GI Denies hematochezia and Denies change in stool character Musc Denies abnormal gait, Denies muscle cramps, Denies muscle weakness, Denies numbness, Denies radiating pain into limb and Denies tingling Neuro Denies abnormal gait, Denies dizziness, Denies syncope, Denies numbness, Denies tingling and Denies weakness Endo Denies palpitations Physical Exam Vital Signs: Last Vital Signs Pulse 83 07/17/23 14:15 BP 136/90 H 07/17/23 14:15 BMI result Body Mass Index 40.8 Const General: comfortable and no acute distress Orientation/consciousness: patient oriented x3 HEENT Other: Unremarkable Head: Yes normal to inspection Neck Neck: Yes normal visual inspection Chest Chest palpation & inspection: normal inspection of the chest Resp Auscultation: clear to auscultation bilaterally Cardio Palpation: normal PMI Heart sounds: S1 normal heart sound present, S2 normal heart sound present, no gallops, no murmurs and no rubs GI Palpation (GI): Soft to palpation Back/Spine/Pelvis Other: unremarkable Skin General skin exam: no rashes or lesions noted Neuro General: patient oriented x3 Extrem General: Yes normal to inspection Psych Mental Status: mental status grossly normal Office Procedures EKG Details: EKG with sinus rhythm at 83/Min; no significant ST-T changes and otherwise unremarkable[place] [address]-[id number], Complete Assessment & Plan Assessment & Plan (1) PFO (patent foramen ovale): Code(s): Q21.1 - Atrial septal defect (2) Atrial septal aneurysm: Code(s): I25.3 - Aneurysm of heart (3) History of pulmonary embolism: Code(s): Z86.711 - Personal history of pulmonary embolism (4) Morbid obesity: Code(s): E66.01 - Morbid (severe) obesity due to excess calories Plan With regard to the PFO/atrial septal aneurysm, no specific implications at this time. She is already on anticoagulation for the pulmonary embolism and that can be continued. However if that is stopped, then will need antiplatelet drugs like aspirin if able. Otherwise, with regard to the DVT/PE history, not provoked per patient and pos sibly related to weight and sedentary lifestyle. Per Hematology note, there is also a family history of the same in mother and sister. Hence she is maintained on long-term anticoagulation. Overall, main recommendation is still to lose weight as that will help her the most. In the absence of symptoms, mainly reassurance. Advised to contact us as needed. Medications: Discontinued hydrochlorothiazide 12.5 mg PO 3XW 90 days 36 tabs 1RF Coding Level of Care Code Est Pt Level 3 (22934) Diagnoses PFO (patent foramen ovale) Q21.1 Atrial septal aneurysm I25.3 History of pulmonary embolism Z86.711 Morbid obesity E66.01 CPT Codes EKG - CPT: 79331-Zozvnoeldzepynuow, Complete ([id number])
[2023-07-17 14:15] VITALS: BP 136/90; PULSE 83; BMI 40.8
== END 2023-07-17 14:49 | disposition home or self-care (01) ==
PROVIDERS: PCP Internal Medicine; Referring Provider Internal Medicine; Visit Provider Internal Medicine
DX: Q21.10 Atrial septal defect, unspecified (principal); I25.3 Aneurysm of heart; Z86.711 Personal history of pulmonary embolism; E66.01 Morbid (severe) obesity due to excess calories
CPT/HCPCS: 93010; 99213

== ENCOUNTER → 2023-07-17 14:05 | Outpatient (BNVA) | payer MEDICARE, MEDICAID, SELFPAY | PROVIDERS: PCP Internal Medicine; Referring Provider Internal Medicine; Visit Provider Internal Medicine | DX: Q21.12 Patent foramen ovale (principal); I25.3 Aneurysm of heart; E66.01 Morbid (severe) obesity due to excess calories; Z86.711 Personal history of pulmonary embolism; Z79.01 Long term (current) use of anticoagulants; Z68.41 Body mass index [BMI] 40.0-44.9, adult | CPT/HCPCS: 93005; 99212 ==

== ENCOUNTER → 2023-07-22 14:45 | Outpatient (BNVA) | payer MEDICARE, MEDICAID, SELFPAY | PROVIDERS: PCP Internal Medicine; Visit Provider Dietitian, Registered | DX: E66.9 Obesity, unspecified (principal); Z98.84 Bariatric surgery status; Z71.3 Dietary counseling and surveillance | CPT/HCPCS: 97803 ==

== ENCOUNTER 2023-08-19 10:39 | Outpatient (REF) | payer MEDICARE, MEDICAID, SELFPAY ==
[2023-08-19 13:07] LABS: MANUAL DIFF FLAG NO
[2023-08-19 13:13] LABS: Basophils Percent Auto 0.1 % (0-2); Eosinophils Absolute Auto 0.1 X10*3/uL (0.0-0.4); Eosinophils Percent Auto 1.3 % (0-4); Hematocrit 38.8 % (37.0-47.0); Hemoglobin 11.9 g/dl (12.0-16.0); Imm Gran Abs Auto 0.02 X10*3/uL (0.00-0.03); Imm Gran Pct Auto 0.3 % (0.0-0.4); Lymphocytes Percent Auto 27.4 % (20-40); Mean Corpuscular HGB Conc 30.7 g/dl (31.0-35.0); Mean Corpuscular Hemoglobin 23.4 pg (27.0-33.0); Mean Corpuscular Volume 76.4 fL (80.0-98.0); Mean Platelet Volume 9.4 fL (9.4-12.3); Monocytes Absolute Auto 0.6 X10*3/uL (0.1-1.2); Monocytes Percent Auto 7.9 % (2-11); Neutrophils Absolute Auto 4.5 x10*3/uL (2.0-8.3); Platelet Count 426 X10*3/uL (160-400); Red Blood Count 5.08 X10*6/uL (4.20-5.50); Red Cell Distribution Width 17.1 % (11.0-16.0); White Blood Count 7.2 X10*3/uL (4.8-10.8)
[2023-08-19 13:32] LABS: Alanine Aminotransferase 18 U/L (0-31); Albumin Level 4.4 g/dL (3.5-5.0); Alkaline Phosphatase 101 U/L (39-117); Anion Gap 15 (12-20); Aspartate Amino Transferase 21 U/L (5-31); Bilirubin Total 0.6 mg/dL (0.0-1.0); Blood Urea Nitrogen 16 mg/dL (9-16); Calcium 9.9 mg/dL (8.4-10.2); Carbon Dioxide 21 mmol/L (22-29); Chloride 107 mmol/L (96-108); Estimated Glomerular Filt Rate > 60; Glucose Random 94 mg/dL (60-115); Potassium 4.2 mmol/L (3.3-5.1); Sodium 139 mmol/L (135-145); Total Protein 7.5 g/dL (6.5-8.0)
[2023-08-19 13:59] LABS: D Dimer High Sensitivity < 150 NG/ML
== END 2023-08-19 10:40 | disposition home or self-care (01) ==
LOC: HO.HMGCLDS 10:39
PROVIDERS: PCP Internal Medicine; Visit Provider Internal Medicine Medical Oncology
DX: Z86.711 Personal history of pulmonary embolism (principal)
CPT/HCPCS: 36415; 80053; 85025; 85379

== ENCOUNTER 2023-11-11 10:54 | Outpatient (REF) | payer MEDICARE, MEDICAID, SELFPAY | END 2023-11-11 10:55 | disposition home or self-care (01) | LOC: HO.MAMMO 10:54 | PROVIDERS: PCP Internal Medicine; Visit Provider Internal Medicine | DX: Z12.31 Encounter for screening mammogram for malignant neoplasm of breast (principal) | CPT/HCPCS: 77063; 77067 ==

== ENCOUNTER → 2023-11-11 11:15 | Outpatient (BNV) | payer MEDICARE, MEDICAID, SELFPAY | PROVIDERS: PCP Internal Medicine; Visit Provider Radiology Diagnostic Radiology | DX: Z12.31 Encounter for screening mammogram for malignant neoplasm of breast (principal) | CPT/HCPCS: 77063; 77067 ==

== ENCOUNTER 2024-01-13 08:20 | Outpatient (AMB) | payer MEDICARE, MEDICAID, SELFPAY ==
[2024-01-13 08:28] VITALS: BP 110/80; PULSE 83; O2SAT 96; BMI 41.7
--- NOTE | 2024-01-13 08:28 | A.OFFPC_ITS ---
Vital Signs 01/13/24 08:28 Height 5 ft 8 in Weight 274 lb BMI 41.7 BP 110/80 Blood Pressure Location Lt brachial Position Sitting Pulse 83 Pulse Source Pulse Oximeter Pulse Oximetry (%) 96 Oxygen Delivery Method Room Air Intake Visit Reasons: 6 month f/u Intake Note: Pt is here todays for her 6 months f/u Allergies No Known Allergies Allergy (Verified 01/13/24 08:56) Medication List - Last Reconciled 01/13/24 by Denisha Schwartz MD calcium citrate-vitamin D3 315 mg-5 mcg (200 unit) 1 tab PO BID [Celebrate MVI 1 tab PO DAILY] cholecalciferol (vitamin D3) 50 mcg PO DAILY clotrimazole-betamethasone 1-0.05 % 1 appl topical BID 10 days cyclobenzaprine 10 mg PO BEDTIME PRN famotidine 40 mg PO DAILY fluoxetine 10 mg PO DAILY fluoxetine 20 mg PO QAM fluticasone propionate 50 mcg/actuation 1 spray intranasal DAILY hydrochlorothiazide 12.5 mg PO 3XW PRN levocetirizine 5 mg PO DAILY magnesium oxide 500 mg PO DAILY rivaroxaban (Xarelto) 10 mg PO DAILY rosuvastatin 5 mg PO DAILY zinc gluconate 10 mg PO DAILY Tobacco use date assessed: 01/13/24 Dental Screening Dental Screen Date: 01/13/24 HPI 6 month f/u HPI Details 58-year-old lady with morbid obesity sta tus post gastric bypass, has history of pulmonary embolism currently on apixaban, has primary osteoarthritis of both knees, here today for follow-up on her hyperlipidemia and depression. She states that she has not been feeling well about herself, had a fall out with her older sister which has been bothering her, constantly worse about her health and her partner's health. She did state started seeing a therapist again which has been helping and has been taking her fluoxetine as directed . She states that she has not been very compliant with her diet and has not been exercising, knows that she has gained weight, and is trying to go back on her diet again. [facility] Medical History (Updated 01/13/24 @ 09:00 by Denisha Schwartz MD) Anemia Vitamin D deficiency Umbilical hernia Uterine fibroid Cervical dysplasia Primary osteoarthritis of both knees Pulmonary embolism Seasonal allergies Steatosis, liver History of pulmonary embolism Osteoarthritis Depression Gastric reflux Hiatal hernia Hypertension Hyperlipidemia Surgical History S/P gastric bypass Status post right knee replacement History of right hip replacement H/O bariatric surgery History of cholecystectomy H/O umbilical hernia repair Family History Father Mental health disorder Sister Lymph node cancer Mental health disorder Thyroid disorder Mother Lymph node cancer Mental health disorder Mother Tumor Brother Substance use disorder Social History Household Members: Spouse Housing: Apartment Are you a primary care program resident to a significant other at home: No Do you presently have visiting nurse or other home services: No Alcohol intake: current Alcohol intake frequency: holidays/special occasions only Patient Tobacco Use Status: Never used Tobacco e-Cigarette/Vaping Use: Never Used service: No Current occupational status: unemployed and disabled Gender identity: Female Cognitive needs: No Hearing needs: No Vision needs: Yes Female Reproductive History Menstrual Age of Menarche: 12 Questionnaire PHQ-9 Over the last 2 weeks, how often have you been bothered by any of the following problems? 1. Little interest or pleasure in doing things: several days 2. Feeling down, depressed, or hopeless: several days 3. Trouble falling or staying asleep, or sleeping too much: several days 4. Feeling tired or having little energy: more than half the days 5. Poor appetite or overeating: more than half the days 6. Feeling bad about yourself - or that you are a failure or have let yourself or your family down: more than half the days 7. Trouble concentrating on things, such as reading the newspaper or watching television: more than half the days 8. Moving or speaking so slowly that other people could have noticed. Or the opposite - being so fidgety or restless that you have been moving around a lot more than usual: not at all 9. Thoughts that you would be better off or of hurting yourself in some way: not at all Total score: 11 Depression Screening Interpretation: Positive Depression Screening Follow-up: Existing condition, In treatment and Community Mental Health Worker F/U Depression Screening Done: Yes Source: Developed by Drs. Courteny Lundy Kurt Kroenke and colleagues, with an educational joann from [employer]. Thrive Questionnaire Date Thrive assessed: 01/13/24 I am a: Patient What is your living situation today?: I have a steady place to live Within the past 12 months, did the food you bought not last and you didn't have the money to get more?: Sometimes True Within the past 12 months, did you worry whether your food would run out before you got money to buy more?: Sometimes True Do you have trouble paying for medicines?: Yes Do you have trouble getting transportation to medical appointments?: Yes Do you have trouble paying your heating and electricity bill?: No Do you have trouble taking care of your child, family member or friend?: Yes Do you have trouble with day-to-day activities such as bathing, preparing meals, shopping, managing finances, etc.?: No Are you currently unemployed and looking for a job?: Yes Are you interested in more education?: No Please select the resources that you would like help with: Food, Transportation, Utilities and Daily support THRIVE Score: 3 AUDIT C Alcohol Use Questionnaire (AUDIT-C) 1. How often do you have a drink containing alcohol?: Monthly or less 2. How many drinks containing alcohol do you have on a typical day when you are drinking?: 1 or 2 3. How often do you have six or more drinks on one occasion?: Never Total Score: 1 ENDY-7 AMB Questionnaire ENDY-7 Date ENDY - 7 assessed: 01/13/24 Feeling nervous, anxious, or on edge: 2 = More than half the days Not being able to stop or control worryin = Nearly every day Worrying too much about different things: 3 = Nearly every day Trouble relaxin = Nearly every day Being so restless that it is hard to sit still: 1 = Several days Becoming easily annoyed or irritable: 2 = More than half the days Feeling afraid as if something awful might happen: 3 = Nearly every day Total ENDY-7 score (0-4 normal; 5-9 mild; 10-14 moderate; 15-21 severe): 17 Source: Developed by Courtney Staton Kurt Kroenke and colleagues, with an educational joann from [employer]. ENDY-7 Assessment Billing ENDY-7 Assessment Tool: ENDY-7 Assessment 09862 Review of Systems Const Denies body aches, Denies fatigue, Denies fever(s), Denies headache(s), Denies weakness and Reports weight gain Eyes Details: sees Danna Brunson ENT Denies dizziness and Denies headache(s) Card Denies chest pain, Denies chest pain with activity, Denies syncope, Denies rapid heart rate, Denies pedal edema, Denies lightheadedness, Denies palpitations, Denies dyspnea and Denies dyspnea on exertion Resp Denies cough, Denies dyspnea and Denies dyspnea on exertion GI Denies hematochezia and Denies change in stool character Reports no additional complaints Musc Denies abnormal gait, Denies muscle cramps, Denies muscle weakness, Denies numbness, Denies radiating pain into limb and Denies tingling Neuro Denies abnormal gait, Denies dizziness, Denies syncope, Denies headache(s), Denies numbness, Denies tingling and Denies weakness Psych Reports as per HPI Endo Denies fatigue and Denies palpitations [place]/Lymph Denies easy bleeding and Denies easy bruising Aller/Immun Reports no additional complaints Physical exam (Primary Care) Vital Signs: Last Vital Signs Pulse 83 01/13/24 08:28 BP 110/80 01/13/24 08:28 Pulse Ox 96 01/13/24 08:28 Oxygen Delivery Method Room Air 01/13/24 08:28 BMI result Body Mass Index 41.7 Tobacco/Smoking Status: Tobacco use Status Tobacco use date assessed 01/13/24 01/13/24 08:31 Patient Tobacco Use Status Never used Tobacco 01/13/24 08:31 e-Cigarette/Vaping Use Never Used 01/13/24 08:31 PHQ-9: PHQ-9 Score PHQ-9: Total score 13 01/13/24 09:00 Depression Screening Interpretation: Positive Depression Screening Follow-up: Existing condition, In treatment and Community Mental Health Worker F/U Thrive Assessment: Date of Thrive Assessment Date Thrive assessed 01/13/24 01/13/24 08:43 Const Other: Obese, Alert oriented x3, ambulatory with normal gait Orientation/consciousness: patient oriented x3 HENMT Mouth: Normal oral and palatal mucosa present and moist mucous membranes Eyes General: appearance normal, both eyes and all related structures Neck Other: Supple, no lymphadenopathy thyroid gland nonpalpable Resp Auscultation: clear to auscultation bilaterally Cardio Other: S1-S2 present regular rate and rhythm GI Other: Obese, soft, nontender with no mass palpated Back/Spine/Pelvis Thoracic/Lumbar Spine: thoraco-lumbar ROM normal and straight leg raise negative bilaterally Neuro General: patient oriented x3, gait normal, moves all extremities, Normal light touch and pain sensation and no focal motor deficits Extrem General: Yes full ROM, Yes no clubbing, cyanosis or edema and Yes normal gait Psych Appearance: grossly normal and well kempt Speech and movement: Normal speech and movement present Affect: normal affect Attitude: cooperative Thought process: Normal thought process present Assessment and Plan Assessment & Plan (1) Hyperlipidemia: Code(s): E78.5 - Hyperlipidemia, unspecified Qualifiers: Hyperlipidemia type: pure hypercholesterolemia Qualified Code(s): E78.00 - Pure hypercholesterolemia, unspecified Plan: Fasting lipid panel ordered, continue with rosuvastatin 5 mg once a day in addition to adhering to a low-cholesterol diet and stressed importance of getting regular exercise (2) Depression: Code(s): F32.9 - Major depressive disorder, single episode, unspecified Qualifiers: Active/Remission status: currently active Depression Type: major depressive disorder Major depression episode severity: severe Major depression recurrence: recurrent Psychotic features: without psychotic features Qualified Code(s): F33.2 - Major depressive disorder, recurrent severe without psychotic features Plan: Continue with fluoxetine 30 mg daily, patient recently started seeing her therapist again (3) History of pulmonary embolism: Code(s): Z86.711 - Personal history of pulmonary embolism Plan: Followed by hematology, continued on Xarelto 10 mg once a day (4) Anemia: Code(s): D64.9 - Anemia, unspecified Qualifiers: Anemia type: unspecified type Qualified Code(s): D64.9 - Anemia, unspecified Plan: Repeat CBC ordered and iron profile already ordered by her clinical transplant coordinator Orders: Orders Lipid Panel Today E55.9 - Vitamin D deficiency, unspecified, E78.5 - Hyperlipid emia, unspecified, I10 - Essential (primary) hypertension Vitamin D 25-OH Total Today E55.9 - Vitamin D deficiency, unspecified, E78.5 - Hyperlipidemia, unspecified, I10 - Essential (primary) hypertension Coding Level of Care Code Est Pt Level 4 (65456) Diagnoses Pure hypercholesterolemia E78.00 Hyperlipidemia type: pure hypercholesterolemia Severe episode of recurrent major depressive disorder, without psychotic features F33.2 Active/Remission status: currently active Depression Type: major depressive disorder Major depression episode severity: severe Major depression recurrence: recurrent Psychotic features: without psychotic features History of pulmonary embolism Z86.711 Anemia, unspecified type D64.9 Anemia type: unspecified type Additional Codes ENDY-7 Assessment Billing - ENDY-7 Assessment Tool: ENDY-7 Assessment [id number] ([id number])
== END 2024-01-13 09:33 | disposition home or self-care (01) ==
PROVIDERS: PCP Internal Medicine; Visit Provider Internal Medicine
DX: E78.00 Pure hypercholesterolemia, unspecified (principal); F33.2 Major depressive disorder, recurrent severe without psychotic features; E66.01 Morbid (severe) obesity due to excess calories; Z68.41 Body mass index [BMI] 40.0-44.9, adult; Z86.711 Personal history of pulmonary embolism; D64.9 Anemia, unspecified
CPT/HCPCS: 99214

== ENCOUNTER 2024-02-28 07:29 | Outpatient (REF) | payer MEDICARE, MEDICAID, SELFPAY ==
[2024-02-28 11:23] LABS: Basophils Percent Auto 0.1 % (0-2); Eosinophils Absolute Auto 0.1 X10*3/uL (0.0-0.4); Eosinophils Percent Auto 1.6 % (0-4); Hematocrit 38.5 % (37.0-47.0); Imm Gran Abs Auto 0.01 X10*3/uL (0.00-0.03); Imm Gran Pct Auto 0.1 % (0.0-0.4); Lymphocytes Absolute Auto 2.3 X10*3/uL (1.2-4.9); Lymphocytes Percent Auto 32.3 % (20-40); MANUAL DIFF FLAG NO; Mean Corpuscular HGB Conc 31.2 g/dl (31.0-35.0); Mean Corpuscular Hemoglobin 23.4 pg (27.0-33.0); Monocytes Absolute Auto 0.5 X10*3/uL (0.1-1.2); Monocytes Percent Auto 6.5 % (2-11); Neutrophils Absolute Auto 4.2 x10*3/uL (2.0-8.3); Neutrophils Percent Auto 59.4 % (45-73); Platelet Count 466 X10*3/uL (160-400); Red Blood Count 5.13 X10*6/uL (4.20-5.50); Red Cell Distribution Width 18.6 % (11.0-16.0); White Blood Count 7.1 X10*3/uL (4.8-10.8)
[2024-02-28 11:40] LABS: D Dimer High Sensitivity < 150 NG/ML
[2024-02-28 11:44] LABS: Alanine Aminotransferase 19 U/L (0-31); Albumin Level 4.2 g/dL (3.5-5.0); Alkaline Phosphatase 107 U/L (39-117); Anion Gap 13 (12-20); Aspartate Amino Transferase 22 U/L (5-31); Bilirubin Total 0.6 mg/dL (0.0-1.0); Blood Urea Nitrogen 16 mg/dL (9-16); Calcium 9.5 mg/dL (8.4-10.2); Carbon Dioxide 21 mmol/L (22-29); Chloride 109 mmol/L (96-108); Cholesterol 186 mg/dL (<200); Estimated Glomerular Filt Rate > 60; Glucose Random 92 mg/dL (60-115); HDL Cholesterol 85 mg/dL (>40); Iron 32 mcg/dL (30-160); LDL Cholesterol Calculated 86 mg/dL (<100); Percent Iron Saturation 7 % (15-50); Sodium 139 mmol/L (135-145); Total Iron Binding Capacity 454 mcg/dL (228-428); Total Protein 7.4 g/dL (6.5-8.0); Triglycerides 79 mg/dL (<150); Unsaturated Iron Binding 422 ug/dL
[2024-02-28 11:53] LABS: Ferritin 6 ng/mL (10-250)
[2024-02-28 12:00] LABS: Vitamin D 25-OH Total 45.8 ng/mL (>30)
== END 2024-02-28 07:30 | disposition home or self-care (01) ==
LOC: HO.HMGCLDS 07:29
PROVIDERS: PCP Internal Medicine; Referring Provider Internal Medicine Medical Oncology; Visit Provider Internal Medicine
DX: E78.5 Hyperlipidemia, unspecified (principal); I10 Essential (primary) hypertension; E55.9 Vitamin D deficiency, unspecified; Z86.711 Personal history of pulmonary embolism
CPT/HCPCS: 36415; 80053; 80061; 82306; 82728; 83540; 85025; 85379

== ENCOUNTER 2024-04-06 08:32 | Outpatient (AMB) | payer MEDICARE, MEDICAID, SELFPAY ==
[2024-04-06 08:46] VITALS: BP 130/74; PULSE 79; O2SAT 97; BMI 42.4
--- NOTE | 2024-04-06 08:46 | MHC.PC.OV ---
Vital Signs 04/06/24 08:46 Height 5 ft 8 in Weight 279 lb BMI 42.4 BP 130/74 Blood Pressure Location Lt brachial Position Sitting Pulse 79 Pulse Source Pulse Oximeter Pulse Oximetry (%) 97 Oxygen Delivery Method Room Air Intake Visit Reasons: Annual Exam Intake Note: Pt is here today for her PE: Last mammogram 11/11/23, papsmear 05/01/21, colonoscopy 02/20/15 Allergies No Known Allergies Allergy (Verified 04/06/24 09:19) Medication List - Last Reconciled 04/06/24 by Denisha Schwartz MD calcium citrate-vitamin D3 315 mg-5 mcg (200 unit) 1 tab PO BID [Celebrate MVI 1 tab PO DAILY] cholecalciferol (vitamin D3) 50 mcg PO DAILY clotrimazole-betamethasone 1-0.05 % 1 appl topical BID 10 days cyclobenzaprine 10 mg PO BEDTIME PRN famotidine 40 mg PO DAILY ferrous fumarate (Ferretts) 325 mg PO DAILY fluoxetine 10 mg PO DAILY fluoxetine 20 mg PO QAM fluticasone propionate 50 mcg/actuation 1 spray intranasal DAILY hydrochlorothiazide 12.5 mg PO 3XW PRN levocetirizine 5 mg PO DAILY magnesium oxide 500 mg PO DAILY rivaroxaban (Xarelto) 10 mg PO DAILY rosuvastatin 5 mg PO DAILY zinc gluconate 10 mg PO DAILY Tobacco use date assessed: 04/06/24 Dental Screening Dental Screen Date: 04/06/24 Did you have a dental visit in the last 12 months?: Yes Did you have a dental problem in the last 6 months where you did not have access to dental care?: Yes Was dental information given to patient?: Patient has dentist HPI Annual Exam HPI Details 59 year-old lady with morbid obesity status post gastric bypass surgery, has hypertension, hyperlipidemia, seasonal allergies, depression, osteoarthritis, and history of pulmonary embolism and atrial septal septal aneurysm currently on apixaban, here today for her physical exam. She is up-to-date with her screening mammogram, done 11/11/2023, goes to [facility] for routine Pap smear and pelvic exam, last done 05/01/21, and is up-to-date with her screening colonoscopy last done 02/20/[address] Quintanilla, due again in 2024. She has been trying to lose weight again, had gastric bypass surgery but gained some of the weight back. She has seen a dietitian for guidance with her nutrition, compliant with her recommended diet and tries to walk for exercise but unable to lose weight. She is requesting to try Ozempic or Wegovy if covered by her insurance, to help lose weight. [facility] Medical History (Updated 04/06/24 @ 09:39 by Denisha Schwartz MD) Umbilical hernia Uterine fibroid Cervical dysplasia Primary osteoarthritis of both knees Pulmonary embolism Seasonal allergies Steatosis, liver History of pulmonary embolism Osteoarthritis Depression Gastric reflux Hiatal hernia Hypertension Hyperlipidemia Surgical History S/P gastric bypass Status post right knee replacement History of right hip replacement H/O bariatric surgery History of cholecystectomy H/O umbilical hernia repair Family History Father Mental health disorder Sister Lymph node cancer Mental health disorder Thyroid disorder Mother Lymph node cancer Mental health disorder Mother Tumor Brother Substance use disorder Social History Household Members: Spouse Housing: Apartment Are you a primary medicare nurse to a significant other at home: No Do you presently have visiting nurse or other home services: No Alcohol intake: current Alcohol intake frequency: holidays/special occasions only Patient Tobacco Use Status: Never used Tobacco e-Cigarette/Vaping Use: Never Used service: No Current occupational status: unemployed and disabled Gender identity: Female Cognitive needs: No Hearing needs: No Vision needs: Yes Female Reproductive History Menstrual Age of Menarche: 12 Questionnaire PHQ-9 Over the last 2 weeks, how often have you been bothered by any of the following problems? 1. Little interest or pleasure in doing things: several days 2. Feeling down, depressed, or hopeless: several days 3. Trouble falling or staying asleep, or sleeping too much: several days 4. Feeling tired or having little energy: several days 5. Poor appetite or overeating: nearly every day 6. Feeling bad about yourself - or that you are a failure or have let yourself or your family down: several days 7. Trouble concentrating on things, such as reading the newspaper or watching television: not at all 8. Moving or speaking so slowly that other people could have noticed. Or the opposite - being so fidgety or restless that you have been moving around a lot more than usual: not at all 9. Thoughts that you would be better off or of hurting yourself in some way: not at all Total score: 8 Depression Screening Interpretation: Positive Depression Screening Follow-up: Existing condition, In treatment and Community Mental Health Worker F/U Depression Screening Done: Yes [id number] - PHQ-9 Billing: Yes Source: Developed by Drs. Tye May, Courtney Bolaños, Lee Candelaria and colleagues, with an educational joann from [employer]. Thrive Questionnaire Date Thrive assessed: 01/13/24 I am a: Patient What is your living situation today?: I have a steady place to live Within the past 12 months, did the food you bought not last and you didn't have the money to get more?: Often true Within the past 12 months, did you worry whether your food would run out before you got money to buy more?: Often true Please select the resources that you would like help with: Housing/Mcc, Food, Paying for medicine, Transportation and Daily support THRIVE Score: 2 AUDIT C Alcohol Use Questionnaire (AUDIT-C) 1. How often do you have a drink containing alcohol?: Monthly or less 3. How often do you have six or more drinks on one occasion?: Less than monthly Total Score: 2 ENDY-7 AMB Questionnaire ENDY-7 Date ENDY - 7 assessed: 04/06/24 Feeling nervous, anxious, or on edge: 1 = Several days Not being able to stop or control worryin = Several days Worrying too much about different things: 2 = More than half the days Trouble relaxin = Several days Being so restless that it is hard to sit still: 0 = Not at all Becoming easily annoyed or irritable: 1 = Several days Feeling afraid as if something awful might happen: 1 = Several days Total ENDY-7 score (0-4 normal; 5-9 mild; 10-14 moderate; 15-21 severe): 7 Source: Developed by Drs. Tye May, Lee Cody and colleagues, with an educational joann from [employer]. ENDY-7 Assessment Billing ENDY-7 Assessment Tool: ENDY-7 Assessment 98688 Review of Systems Const Denies fever(s), Denies headache(s), Denies weakness and Reports weight gain Eyes Details: sees Danna Brunson ENT Denies dizziness and Denies headache(s) Card Denies chest pain, Denies chest pain with activity, Denies syncope, Denies rapid heart rate, Denies pedal edema, Denies lightheadedness, Denies palpitations, Denies dyspnea and Denies dyspnea on exertion Resp Denies cough, Denies dyspnea and Denies dyspnea on exertion GI Denies hematochezia and Denies change in stool character Reports no additional complaints Musc Denies abnormal gait, Denies muscle cramps, Denies muscle weakness, Denies numbness, Denies radiating pain into limb and Denies tingling Skin/Breast Denies breast pain, Denies breast mass and Denies rash Neuro Denies abnormal gait, Denies dizziness, Denies syncope, Denies headache(s), Denies numbness, Denies tingling and Denies weakness Psych Reports as per HPI Endo Denies palpitations [place]/Lymph Denies easy bleeding and Denies easy bruising Aller/Immun Reports no additional complaints Physical exam (Primary Care) Vital Signs: Last Vital Signs Pulse 79 04/06/24 08:46 BP 130/74 04/06/24 08:46 Pulse Ox 97 04/06/24 08:46 Oxygen Delivery Method Room Air 04/06/24 08:46 BMI result Body Mass Index 42.4 Tobacco/Smoking Status: Tobacco use Status Tobacco use date assessed 04/06/24 04/06/24 08:47 Patient Tobacco Use Status Never used Tobacco 04/06/24 08:47 e-Cigarette/Vaping Use Never Used 04/06/24 08:47 PHQ-9: PHQ-9 Score PHQ-9: Total score 22 04/12/24 16:44 Depression Screening Interpretation: Positive Depression Screening Follow-up: Existing condition, In treatment and Community Mental Health Worker F/U Thrive Assessment: Date of Thrive Assessment Date Thrive assessed 01/13/24 04/06/24 08:47 Const Other: Obese, Alert oriented x3, ambulatory with normal gait Orientation/consciousness: patient oriented x3 HENMT Mouth: Normal oral and palatal mucosa present and moist mucous membranes Eyes General: appearance normal, both eyes and all related structures Neck Other: Supple, no lymphadenopathy thyroid gland nonpalpable Chest Chest palpation & inspection: normal inspection of the chest Breast/axilla palpation: normal palpation of the breasts Resp Auscultation: clear to auscultation bilaterally Cardio Other: S1-S2 present regular rate and rhythm GI Other: Obese, soft, nontender with no mass palpated Other: Sees [facility] for her routine Pap and pelvic exam Back/Spine/Pelvis Thoracic/Lumbar Spine: thoraco-lumbar ROM normal and straight leg raise negative bilaterally Skin General skin exam: no rashes or lesions noted Neuro General: patient oriented x3, gait normal, moves all extremities, Normal light touch and pain sensation and no focal motor deficits Extrem General: Yes full ROM, Yes no clubbing, cyanosis or edema and Yes normal gait Psych Appearance: grossly normal and well kempt Speech and movement: Normal speech and movement present Affect: normal affect Attitude: cooperative Thought process: Normal thought process present Results Reviewed Results Reviewed: Name: Nadine Clifford Age/Sex: 59/F : 1965 Unit#: [id number] Attend Dr: Denisha Schwartz MD Re02/28/24 Status: DEP REF Location: [facility] Disch: SPEC : [id number] GARRISON: 02/28/24 STATUS: COMP REQ : [id number] RECD: 02/28/[address]: Rosalind Covarrubias MD COMP: 02/28/24 ENTERED: 02/28/[address]: Denisha Schwartz MD ORDERED: CBC Auto Diff Test Result Flag Reference WBC 7.1 4.8-10.8 X10*3/uL RBC 5.13 4.20-5.50 X10*6/uL HGB 12.0 12.0-16.0 g/dl HCT 38.5 37.0-47.0 % MCV 75.0 L 80.0-98.0 fL MCH 23.4 L 27.0-33.0 pg MCHC 31.2 31.0-35.0 g/dl RDW 18.6 H 11.0-16.0 % PLT 466 H 160-400 X10*3/uL MPV 9.0 L 9.4-12.3 fL Neut Pct Auto 59.4 45-73 % ImGran Pct Auto 0.1 0.0-0.4 % Lymp Pct Auto 32.3 20-40 % [place] Pct Auto 6.5 2-11 % Eos Pct Auto 1.6 0-4 % Baso Pct Auto 0.1 0-2 % NRBC Pct Auto 0.0 0.0-0.2 /100WBC ANC Neut Abs # 4.2 2.0-8.3 x10*3/uL ImGran Abs Auto 0.01 0.00-0.03 X10*3/uL Lymph Abs Auto 2.3 1.2-4.9 X10*3/uL [place] Abs Auto 0.5 0.1-1.2 X10*3/uL Eos Abs Auto 0.1 0.0-0.4 X10*3/uL Baso Abs Auto 0.0 0.0-0.2 X10*3/uL NRBC Abs Auto 0.000 0.0-0.012 X10*3/uL Name: Nadine Clifford Age/Sex: 59/F : 1965 Unit#: [id number] Attend Dr: Denisha Schwartz MD Re02/28/24 Status: DEP REF Location: [facility] Disch: SPEC : [id number] GARRISON: 02/28/24 STATUS: COMP REQ : [id number] RECD: 02/28/24-[address]: Denisha Schwartz MD COMP: 02/28/24-1199 ENTERED: 02/28/24-[address]: Rosalind Covarrubias MD ORDERED: CMP, IRON PROF/R, Lipid Panel/R, Vitamin D 25-OH/R Test Result Flag Reference Sodium 139 135-145 mmol/L Potassium 4.0 3.3-5.1 mmol/L CL 109 H 96-108 mmol/L CO2 21 L 22-29 mmol/L Gap 13 12-20 BUN 16 9-16 mg/dL Creat 0.77 0.5-1.4 mg/dL EGFR > 60 NOTE: For -Armenian individuals, multiply the result by 1.210. Chronic Kidney Disease: Estimated GFR < 60 mL/min/1.73m2 Severe Kidney Disease: Estimated GFR < 15 mL/min/1.73m2 Glucose, Random 92 60-115 mg/dL CA 9.5 8.4-10.2 mg/dL Iron 32 30-160 mcg/dL TIBC 454 H 228-428 mcg/dL Saturation 7 L 15-50 % UIBC 422 ug/dL Total Bili 0.6 0.0-1.0 mg/dL AST (GOT) 22 5-31 U/L ALT (GPT) 19 0-31 U/L Protein, Total 7.4 6.5-8.0 g/dL Alb 4.2 3.5-5.0 g/dL Triglyceride 79 <150 mg/dL Desirable Triglyceride: less than 150 mg/dL Borderline High Triglyceride 150-199 mg/dL High Triglyceride: 200-499 mg/dL Very High Triglyceride: greater than or equal to 5OO mg/dL Cholesterol 186 <200 mg/dL Desirable Cholesterol: less than 200 mg/dL Borderline High Cholesterol: 200-239 mg/dL High Cholesterol: greater than 239 mg/dL LDL Calculated 86 <100 mg/dL Desirable LDL: less than 100 mg/dL Near Optimal/Above Optimal LDL: 110-129 mg/dL Borderline High LDL: 130-159 mg/dL High LDL: 160-189 mg/dL Very High LDL: greater than or equal to 190 mg/dL HDL 85 >40 mg/dL Desirable HDL: greater than 40 mg/dL Note: This HDL assay may give artificially low results in patients with liver disease. Alk Phos 107 39-117 U/L Vit D 25-OH Tot 45.8 >30 ng/mL Health Based Reference Values* < 20 ng/mL Deficient 20-30 ng/mL Insufficient > 30 ng/mL Sufficient Assessment and Plan Assessment & Plan (1) Annual visit for general adult medical examination with abnormal findings: Code(s): Z00.01 - Encounter for general adult medical examination with abnormal findings Plan: Fasting lab results reviewed with patient. Recommended to do regular dental prophylaxis every 6 months, up-to-date with her eye exam, sees Dr. Danna Brunson in [place]. Up-to-date with her mammogram, cervical cancer screening and colonoscopy, the latter due again in 2024. She is up-to-date with her vaccination (2) Morbid obesity: Code(s): E66.01 - Morbid (severe) obesity due to excess calories Plan: Will start on right Ambriz's 3 mg per tablet to take 1 tablet once a day, combined this with continued adherence to healthy eating habits and regular exercise. Your back for follow-up in 4 weeks after starting medication (3) Atrial septal aneurysm: Code(s): I25.3 - Aneurysm of heart Plan: Monitored by Cardiology, currently on anticoagulation (4) History of pulmonary embolism: Code(s): Z86.711 - Personal history of pulmonary embolism Plan: her DVT/PE was not provoked, per patient and possibly related to weight and sedentary lifestyle. Per Hematology note, there is also a family history of the same in mother and sister. Hence she is maintained on long-term anticoagulation (5) S/P gastric bypass: Code(s): Z98.84 - Bariatric surgery status Plan: History of gastric bypass surgery (6) Seasonal allergies: Code(s): J30.2 - Other seasonal allergic rhinitis Plan: Continue with fluticasone nasal spray and levocetirizine (7) Hypertension: Code(s): I10 - Essential (primary) hypertension Qualifiers: Hypertension type: essential hypertension Qualified Code(s): I10 - Essential (primary) hypertension Plan: Blood pressure at goal of less than 130/80. Continue with current medication. Reinforced importance of following a low sodium diet, getting regular exercise, and lowering stress levels. (8) Hyperlipidemia: Code(s): E78.5 - Hyperlipidemia, unspecified Qualifiers: Hyperlipidemia type: pure hypercholesterolemia Qualified Code(s): E78.00 - Pure hypercholesterolemia, unspecified Plan: Fasting lipids are within normal limits, continue with rosuvastatin 5 mg daily (9) Depression: Comment: Currently sees therapist at [facility] every 2 weeks Code(s): F32.9 - Major depressive disorder, single episode, unspecified Qualifiers: Active/Remission status: currently active Depression Type: major depressive disorder Major depression episode severity: severe Major depression recurrence: recurrent Psychotic features: without psychotic features Qualified Code(s): F33.2 - Major depressive disorder, recurrent severe without psychotic features Plan: Currently followed by her therapist on fluoxetine (10) Hiatal hernia: Code(s): K44.9 - Diaphragmatic hernia without obstruction or gangrene Plan: Continue with famotidine 40 mg daily Medications: New semaglutide (Rybelsus) 3 mg PO DAILY 30 tabs 0RF 30 days Coding Level of Care Code Est Pt Prev Care 40-64y(10355) Diagnoses Annual visit for general adult medical examination with abnormal findings Z00.01 Morbid obesity E66.01 Atrial septal aneurysm I25.3 History of pulmonary embolism Z86.711 S/P gastric bypass Z98.84 Seasonal allergies J30.2 Essential hypertension I10 Hypertension type: essential hypertension Pure hypercholesterolemia E78.00 Hyperlipidemia type: pure hypercholesterolemia Severe episode of recurrent major depressive disorder, without psychotic features F33.2 Active/Remission status: currently active Depression Type: major depressive disorder Major depression episode severity: severe Major depression recurrence: recurrent Psychotic features: without psychotic features Hiatal hernia K44.9 Additional Codes ENDY-7 Assessment Billing - ENDY-7 Assessment Tool: ENDY-7 Assessment 90457 ([id number])
== END 2024-04-06 09:52 | disposition home or self-care (01) ==
PROVIDERS: PCP Internal Medicine; Visit Provider Internal Medicine
DX: Z00.00 Encounter for general adult medical examination without abnormal findings (principal); E66.01 Morbid (severe) obesity due to excess calories; F33.2 Major depressive disorder, recurrent severe without psychotic features; Z68.41 Body mass index [BMI] 40.0-44.9, adult; I25.3 Aneurysm of heart; Z86.711 Personal history of pulmonary embolism; Z98.84 Bariatric surgery status; J30.2 Other seasonal allergic rhinitis; I10 Essential (primary) hypertension; E78.00 Pure hypercholesterolemia, unspecified; K44.9 Diaphragmatic hernia without obstruction or gangrene
CPT/HCPCS: 99396

== ENCOUNTER 2024-06-02 11:42 | Outpatient (AMB) | payer MEDICARE, MEDICAID, SELFPAY ==
--- NOTE | 2024-06-02 11:37 | A.OFFVIS_ITS ---
VS Expanded 06/02/24 11:42 Height 5 ft 8 in Weight 270 lb BMI 41.0 Intake Visit Reasons: (TV) PO GBP 01/20/18 Allergies No Known Allergies Allergy (Verified 04/06/24 09:19) Medication List - Last Reconciled 06/02/24 by HANK Hopper calcium citrate-vitamin D3 315 mg-5 mcg (200 unit) 1 tab PO BID [Celebrate MVI 1 tab PO DAILY] cholecalciferol (vitamin D3) 50 mcg PO DAILY clotrimazole-betamethasone 1-0.05 % 1 appl topical BID 10 days cyclobenzaprine 10 mg PO BEDTIME PRN famotidine 40 mg PO DAILY ferrous fumarate (Ferretts) 325 mg PO DAILY fluoxetine 10 mg PO DAILY fluoxetine 20 mg PO QAM fluticasone propionate 50 mcg/actuation 1 spray intranasal DAILY hydrochlorothiazide 12.5 mg PO 3XW PRN levocetirizine 5 mg PO DAILY magnesium oxide 500 mg PO DAILY rivaroxaban (Xarelto) 10 mg PO DAILY rosuvastatin 5 mg PO DAILY Wegovy (semaglutide (weight loss)) 0.25 mg (0.5 mL) subcut QWEEK NS zinc gluconate 10 mg PO DAILY HPI Comments Details: This?is a?59?yo female who is s/p RYGB 01/20/2018. Weight at last visit on 05/02/2023 was 260 pounds; weight today is 270 pounds, representing a 10 pound weight gain with a BMI today of 41.1.? Was started on Wegovy by PCP, on her 3rd week, having some side effects- diarrhea, nausea, headaches. Present meal plan includes: Premade protein shake in coffee Lunch try to aim for 20g protein Dinner protein and veg, small amount of healthier carb if able to eat comfortably without feeling too full takes crow MVI -pt has been having 1 piece of toast with an egg, sometimes small banana, or oatmeal for breakfast -salad or half a sandwich for lunch- uses chicken, or hamburger and onions with lettuce wrap, or cottage cheese/celery -pt tracks her protein and feels her intake is adequate Exercise routine includes: walking has improved, some knee soreness, sometimes has to use a cane [facility] Medical History (Updated 04/06/24 @ 09:39 by Denisha Schwartz MD) Umbilical hernia Uterine fibroid Cervical dysplasia Primary osteoarthritis of both knees Pulmonary embolism Seasonal allergies Steatosis, liver History of pulmonary embolism Osteoarthritis Depression Gastric reflux Hiatal hernia Hypertension Hyperlipidemia Surgical History S/P gastric bypass Status post right knee replacement History of right hip replacement H/O bariatric surgery History of cholecystectomy H/O umbilical hernia repair Family History Father Mental health disorder Sister Lymph node cancer Mental health disorder Thyroid disorder Mother Lymph node cancer Mental health disorder Mother Tumor Brother Substance use disorder Social History Household Members: Spouse Housing: Apartment Are you a primary direct care counselor to a significant other at home: No Do you presently have visiting nurse or other home services: No Alcohol intake: current Alcohol intake frequency: holidays/special occasions only Patient Tobacco Use Status: Never used Tobacco e-Cigarette/Vaping Use: Never Used service: No Current occupational status: unemployed and disabled Gender identity: Female Cognitive needs: No Hearing needs: No Vision needs: Yes Female Reproductive History Menstrual Age of Menarche: 12 Telehealth Telehealth Telehealth Platform: Telephone Location of provider rendering services: practice address Location of patient: address on file Patient Identification confirmed using: Name, : Yes Telehealth method: voice only Patient verbally consented to treatment: Yes Patient verbally consented to billing insurance company: Yes Patient informed of any privacy concerns related to visit: Yes Minutes spent on Phone/Video with Pt.: 15 Assessment & Plan Assessment & Plan (1) Morbid obesity: Code(s): E66.01 - Morbid (severe) obesity due to excess calories Category: Medical (2) S/P gastric bypass: Code(s): Z98.84 - Bariatric surgery status Category: Surgical Plan Pt is making healthier choices and I commended her on those (no bun for burger, etc). But still seems to be low in protein. Encouraged her to reincorporate protein shakes/bars, sent photo of protein bar options. She will have vitamin labs drawn. RTC 6 months. I spent a total of 30 minutes reviewing/updating records, examining the patient and counseling the patient on weight management as detailed above. Orders: Orders Vitamin A Today Z98.84 - Bariatric surgery status Vitamin D 25-OH Total Today Z98.84 - Bariatric surgery status Vitamin B12 and Folate Today Z98.84 - Bariatric surgery status Zinc Today Z98.84 - Bariatric surgery status Vitamin B1 Today Z98.84 - Bariatric surgery status
[2024-06-02 11:42] VITALS: BMI 41.0
== END 2024-06-02 12:00 | disposition home or self-care (01) ==
LOC: HO.HBS 11:42
PROVIDERS: PCP Internal Medicine; Visit Provider Physician Assistant Surgical
DX: E66.01 Morbid (severe) obesity due to excess calories (principal); Z68.41 Body mass index [BMI] 40.0-44.9, adult; Z98.84 Bariatric surgery status
CPT/HCPCS: 99442

== ENCOUNTER → 2024-06-02 11:42 | Outpatient (BNVA) | payer MEDICARE, MEDICAID, SELFPAY | PROVIDERS: PCP Internal Medicine; Visit Provider Physician Assistant Surgical ==

== ENCOUNTER 2024-06-21 11:44 | Outpatient (REF) | payer MEDICARE, MEDICAID, SELFPAY ==
[2024-06-21 13:53] LABS: Folate 19.1 ng/mL (> or = 4.0); Vitamin B12 1995 pg/mL (200-900)
[2024-06-24 13:09] LABS: Zinc 74 mcg/dL (60-130)
[2024-06-25 14:53] LABS: Vitamin B1 102 nmol/L (8-30)
[2024-06-26 23:24] LABS: Vitamin A 56 mcg/dL (38-98)
== END 2024-06-21 11:45 | disposition home or self-care (01) ==
LOC: HO.LAB 11:44
PROVIDERS: PCP Internal Medicine; Visit Provider Physician Assistant Surgical
DX: Z98.84 Bariatric surgery status (principal)
CPT/HCPCS: 36415; 82306; 82607; 82746; 84425; 84590; 84630

== ENCOUNTER 2024-06-22 11:41 | Outpatient (AMB) | payer MEDICARE, MEDICAID, SELFPAY ==
[2024-06-22 11:45] VITALS: BP 128/88; PULSE 89; O2SAT 98; BMI 42.6
--- NOTE | 2024-06-22 11:45 | A.OFFPC_ITS ---
Vital Signs 06/22/24 11:45 Height 5 ft 8 in Weight 280 lb BMI 42.6 BP 128/88 Blood Pressure Location Rt brachial Position Sitting Pulse 89 Pulse Source Pulse Oximeter Pulse Oximetry (%) 98 Oxygen Delivery Method Room Air Intake Visit Reasons: Follow up meds Intake Note: Pt is here today for a weigh in and f/u meds Allergies No Known Allergies Allergy (Verified 06/23/24 00:09) Medication List - Last Reconciled 06/23/24 by Denisha Schwartz MD calcium citrate-vitamin D3 315 mg-5 mcg (200 unit) 1 tab PO BID [Celebrate MVI 1 tab PO DAILY] cholecalciferol (vitamin D3) 50 mcg PO DAILY clotrimazole-betamethasone 1-0.05 % 1 appl topical BID 10 days cyclobenzaprine 10 mg PO BEDTIME PRN famotidine 40 mg PO DAILY ferrous fumarate (Ferretts) 325 mg PO DAILY fluoxetine 10 mg PO DAILY fluoxetine 20 mg PO QAM fluticasone propionate 50 mcg/actuation 1 spray intranasal DAILY hydrochlorothiazide 12.5 mg PO 3XW PRN levocetirizine 5 mg PO DAILY magnesium oxide 500 mg PO DAILY rivaroxaban (Xarelto) 10 mg PO DAILY rosuvastatin 5 mg PO DAILY semaglutide (weight loss) 0.5 mg (0.5 mL) subcut QWEEK 30 days zinc gluconate 10 mg PO DAILY Tobacco use date assessed: 06/22/24 Dental Screening Dental Screen Date: 06/22/24 Did you have a dental visit in the last 12 months?: Yes Did you have a dental problem in the last 6 months where you did not have access to dental care?: Yes Was dental information given to patient?: Patient has dentist HPI Follow up meds HPI Details 59-year-old lady here today for a follow -up on her weight . She has been started on Wegovy, , has been on it for at least 6 weeks but has not lost any weight since starting the medication, despite following a healthy diet and trying to exercise as much as she can. Patient states that she never lost her appetite while on the medication, despite having had some nausea, abdominal cramping and diarrhea followed by constipation during the 1st week of starting the medication, which has now resolved. She also has depression currently on fluoxetine and sees a therapist regularly. Patient states however that her mood swings has been getting worse and now has been having frequent anxiety attacks. She has been referred by her therapist to a psychiatrist at [facility] . [facility] Medical History (Updated 04/06/24 @ 09:39 by Denisha Schwartz MD) Umbilical hernia Uterine fibroid Cervical dysplasia Primary osteoarthritis of both knees Pulmonary embolism Seasonal allergies Steatosis, liver History of pulmonary embolism Osteoarthritis Depression Gastric reflux Hiatal hernia Hypertension Hyperlipidemia Surgical History S/P gastric bypass Status post right knee replacement History of right hip replacement H/O bariatric surgery History of cholecystectomy H/O umbilical hernia repair Family History Father Mental health disorder Sister Lymph node cancer Mental health disorder Thyroid disorder Mother Lymph node cancer Mental health disorder Mother Tumor Brother Substance use disorder Social History Household Members: Spouse Housing: Apartment Are you a primary medicare coordinator to a significant other at home: No Do you presently have visiting nurse or other home services: No Alcohol intake: current Alcohol intake frequency: holidays/special occasions only Patient Tobacco Use Status: Never used Tobacco e-Cigarette/Vaping Use: Never Used service: No Current occupational status: unemployed and disabled Gender identity: Female Cognitive needs: No Hearing needs: No Vision needs: Yes Female Reproductive History Menstrual Age of Menarche: 12 Questionnaire PHQ-9 Over the last 2 weeks, how often have you been bothered by any of the following problems? 1. Little interest or pleasure in doing things: more than half the days 2. Feeling down, depressed, or hopeless: more than half the days 3. Trouble falling or staying asleep, or sleeping too much: nearly every day 4. Feeling tired or having little energy: nearly every day 5. Poor appetite or overeating: nearly every day 6. Feeling bad about yourself - or that you are a failure or have let yourself or your family down: nearly every day 7. Trouble concentrating on things, such as reading the newspaper or watching television: nearly every day 8. Moving or speaking so slowly that other people could have noticed. Or the opposite - being so fidgety or restless that you have been moving around a lot more than usual: more than half the days 9. Thoughts that you would be better off or of hurting yourself in some way: not at all Total score: 21 Depression Screening Interpretation: Positive (her therapist at [facility] has referred her to their psychiatrist) Depression Screening Follow-up: Existing condition, In treatment and Community Mental Health Worker F/U Depression Screening Done: Yes 25614 - PHQ-9 Billing: Yes Source: Developed by Drs. Tye May, Courtney Bolaños, Lee Candelaria and colleagues, with an educational joann from [employer]. Thrive Questionnaire Date Thrive assessed: 06/22/24 I am a: Patient What is your living situation today?: I have a steady place to live Within the past 12 months, did the food you bought not last and you didn't have the money to get more?: Often true Within the past 12 months, did you worry whether your food would run out before you got money to buy more?: Often true Do you have trouble paying for medicines?: No Do you have trouble getting transportation to medical appointments?: No Do you have trouble paying your heating and electricity bill?: Yes Do you have trouble taking care of your child, family member or friend?: No Do you have trouble with day-to-day activities such as bathing, preparing meals, shopping, managing finances, etc.?: No Are you currently unemployed and looking for a job?: Yes Are you interested in more education?: No Please select the resources that you would like help with: Housing/Snf, Food, Utilities and Daily support Currently or been in a relationship where the following occur: No concerns reported THRIVE Score: 3 AUDIT C Alcohol Use Questionnaire (AUDIT-C) 1. How often do you have a drink containing alcohol?: Monthly or less 2. How many drinks containing alcohol do you have on a typical day when you are drinking?: 1 or 2 3. How often do you have six or more drinks on one occasion?: Never Total Score: 1 ENDY-7 AMB Questionnaire ENDY-7 Date ENDY - 7 assessed: 04/06/24 Feeling nervous, anxious, or on edge: 3 = Nearly every day Not being able to stop or control worryin = Nearly every day Worrying too much about different things: 3 = Nearly every day Trouble relaxin = Nearly every day Being so restless that it is hard to sit still: 3 = Nearly every day Becoming easily annoyed or irritable: 3 = Nearly every day Feeling afraid as if something awful might happen: 3 = Nearly every day Total ENDY-7 score (0-4 normal; 5-9 mild; 10-14 moderate; 15-21 severe): 21 Source: Developed by Drs. Tye May, Courtney Bolaños, Lee Candelaria and colleagues, with an educational joann from [employer]. ENDY-7 Assessment Billing ENDY-7 Assessment Tool: ENDY-7 Assessment 02136 Review of Systems Const Denies fever(s), Denies headache(s), Denies weakness and Reports weight gain Eyes Details: sees Danna Brunson ENT Denies dizziness and Denies headache(s) Card Denies chest pain, Denies chest pain with activity, Denies syncope, Denies rapid heart rate, Denies pedal edema, Denies lightheadedness, Denies palpitations, Denies dyspnea and Denies dyspnea on exertion Resp Denies cough, Denies dyspnea and Denies dyspnea on exertion GI Denies hematochezia and Denies change in stool character Reports no additional complaints Musc Denies abnormal gait, Denies muscle cramps, Denies muscle weakness, Denies numbness, Denies radiating pain into limb and Denies tingling Skin/Breast Denies breast pain, Denies breast mass and Denies rash Neuro Denies abnormal gait, Denies dizziness, Denies syncope, Denies headache(s), Denies numbness, Denies tingling and Denies weakness Psych Reports as per HPI Endo Denies palpitations [place]/Lymph Denies easy bleeding and Denies easy bruising Aller/Immun Reports no additional complaints Physical exam (Primary Care) Vital Signs: Last Vital Signs Pulse 89 06/22/24 11:45 BP 128/88 06/22/24 11:45 Pulse Ox 98 06/22/24 11:45 Oxygen Delivery Method Room Air 06/22/24 11:45 BMI result Body Mass Index 42.6 Tobacco/Smoking Status: Tobacco use Status Tobacco use date assessed 06/22/24 06/22/24 12:22 Patient Tobacco Use Status Never used Tobacco 06/22/24 11:46 e-Cigarette/Vaping Use Never Used 06/22/24 11:46 PHQ-9: PHQ-9 Score PHQ-9: Total score 21 06/23/24 00:36 Depression Screening Interpretation: Positive (her therapist at [facility] has referred her to their psychiatrist) Depression Screening Follow-up: Existing condition, In treatment and Community Mental Health Worker F/U Thrive Assessment: Date of Thrive Assessment Date Thrive assessed 06/22/24 06/22/24 12:22 Currently or been in a relationship where the following occur: No concerns reported Const Other: Obese, Alert oriented x3, ambulatory with normal gait Orientation/consciousness: patient oriented x3 HENMT Mouth: Normal oral and palatal mucosa present and moist mucous membranes Eyes General: appearance normal, both eyes and all related structures Neck Other: Supple, no lymphadenopathy thyroid gland nonpalpable Chest Chest palpation & inspection: normal inspection of the chest Breast/axilla palpation: normal palpation of the breasts Resp Auscultation: clear to auscultation bilaterally Cardio Other: S1-S2 present regular rate and rhythm GI Other: Obese, soft, nontender with no mass palpated Other: Sees [facility] for her routine Pap and pelvic exam Back/Spine/Pelvis Thoracic/Lumbar Spine: thoraco-lumbar ROM normal and straight leg raise negative bilaterally Skin General skin exam: no rashes or lesions noted Neuro General: patient oriented x3, gait normal, moves all extremities, Normal light touch and pain sensation and no focal motor deficits Extrem General: Yes full ROM, Yes no clubbing, cyanosis or edema and Yes normal gait Psych Appearance: grossly normal and well kempt Speech and movement: Normal speech and movement present Affect: normal affect Attitude: cooperative Thought process: Normal thought process present Assessment and Plan Assessment & Plan (1) Morbid obesity: Code(s): E66.01 - Morbid (severe) obesity due to excess calories Plan: Unable to lose any significant amount of weight since starting Wegovy approximately 6 weeks ago. Will increase her dose to 0.5 mg subcutaneously given once a week for another 4 weeks . Reminded patient that she needs to adhere to healthy diet, and get at least 15 minutes of cardio exercise on a daily basis to be able to lose weight. Will see her back for follow-up in a month. Ordered hemoglobin A1c, comprehensive metabolic panel and TSH with reflex free T4 (2) Depression: Comment: Currently sees therapist at [facility] every 2 weeks Code(s): F32.9 - Major depressive disorder, single episode, unspecified Qualifiers: Depression Type: major depressive disorder Major depression recurrence: recurrent Active/Remission status: currently active Major depression episode severity: severe Psychotic features: without psychotic features Qualified Code(s): F33.2 - Major depressive disorder, recurrent severe without psychotic features Plan: Currently being seen by her therapist regularly and has been referred to a psychiatrist at [facility] for further evaluation management of worsening mood swings and frequent anxiety attacks. In the meantime will continue on current dose of fluoxetine. Orders: Orders Hemoglobin A1c 07/17/24 E66.01 - Morbid (severe) obesity due to excess calories, E78.00 - Pure hypercholesterolemia, unspecified, I10 - Essential (primary) hypertension Comprehensive [place]. Panel Fast 07/17/24 E66.01 - Morbid (severe) obesity due to excess calories, E78.00 - Pure hypercholesterolemia, unspecified, I10 - Essential (primary) hypertension TSH reflex Free T4 07/17/24 E66.01 - Morbid (severe) obesity due to excess calories, E78.00 - Pure hypercholesterolemia, unspecified, I10 - Essential (primary) hypertension Medications: Changed From Wegovy (semaglutide (weight loss)) 0.25 mg (0.5 mL) subcut QWEEK 2 mL 0RF NS E66.01 - Morbid (severe) obesity due to excess calories, E78.00 - Pure hypercholesterolemia, unspecified, I10 - Essential (primary) hypertension To semaglutide (weight loss) 0.5 mg (0.5 mL) subcut QWEEK 2 mL 1RF 30 days E66.01 - Morbid (severe) obesity due to excess calories, E78.00 - Pure hypercholesterolemia, unspecified, I10 - Essential (primary) hypertension Coding Level of Care Code Est Pt Level 4 (84127) Diagnoses Morbid obesity E66.01 Severe episode of recurrent major depressive disorder, without psychotic features F33.2 Depression Type: major depressive disorder Major depression recurrence: recurrent Active/Remission status: currently active Major depression episode severity: severe Psychotic features: without psychotic features Additional Codes ENDY-7 Assessment Billing - ENDY-7 Assessment Tool: ENDY-7 Assessment 82099 ([id number])
== END 2024-06-22 13:06 | disposition home or self-care (01) ==
PROVIDERS: PCP Internal Medicine; Visit Provider Internal Medicine
DX: E66.01 Morbid (severe) obesity due to excess calories (principal); F33.2 Major depressive disorder, recurrent severe without psychotic features; Z68.41 Body mass index [BMI] 40.0-44.9, adult
CPT/HCPCS: 99214

== ENCOUNTER 2024-07-16 08:25 | Outpatient (REF) | payer MEDICARE, MEDICAID, SELFPAY ==
[2024-07-16 10:31] LABS: Estimated Average Glucose 105 mg/dL; Hemoglobin A1c % 5.3 % (<6.0)
[2024-07-16 10:59] LABS: Alanine Aminotransferase 20 U/L (0-31); Albumin Level 4.1 g/dL (3.5-5.0); Alkaline Phosphatase 110 U/L (39-117); Anion Gap 12 (12-20); Aspartate Amino Transferase 25 U/L (5-31); Bilirubin Total 0.7 mg/dL (0.0-1.0); Blood Urea Nitrogen 19 mg/dL (9-16); Calcium 9.6 mg/dL (8.4-10.2); Carbon Dioxide 23 mmol/L (22-29); Chloride 109 mmol/L (96-108); Estimated Glomerular Filt Rate > 60; Glucose Fasting 93 mg/dL (60-99); Potassium 4.1 mmol/L (3.3-5.1); Sodium 140 mmol/L (135-145); TSH reflex Free T4 1.33 uIU/mL (0.32-4.0); Total Protein 7.2 g/dL (6.5-8.0)
== END 2024-07-16 08:26 | disposition home or self-care (01) ==
LOC: HO.HMGCLDS 08:25
PROVIDERS: PCP Internal Medicine; Visit Provider Internal Medicine
DX: E66.01 Morbid (severe) obesity due to excess calories (principal); I10 Essential (primary) hypertension; E78.00 Pure hypercholesterolemia, unspecified
CPT/HCPCS: 36415; 80053; 83036; 84443

== ENCOUNTER 2024-07-23 09:15 | Outpatient (AMB) | payer MEDICARE, MEDICAID, SELFPAY ==
--- NOTE | 2024-07-23 09:12 | MHC.PC.OV ---
Intake Visit Reasons: 4 wks f/u labs Andriod [phone] Allergies No Known Allergies Allergy (Verified 07/23/24 09:42) Medication List - Last Reconciled 07/23/24 by Denisha Schwartz MD calcium citrate-vitamin D3 315 mg-5 mcg (200 unit) 1 tab PO BID [Celebrate MVI 1 tab PO DAILY] cholecalciferol (vitamin D3) 50 mcg PO DAILY clotrimazole-betamethasone 1-0.05 % 1 appl topical BID 10 days cyclobenzaprine 10 mg PO BEDTIME PRN famotidine 40 mg PO DAILY ferrous fumarate (Ferretts) 325 mg PO DAILY fluoxetine 10 mg PO DAILY fluoxetine 20 mg PO QAM fluticasone propionate 50 mcg/actuation 1 spray intranasal DAILY hydrochlorothiazide 12.5 mg PO 3XW PRN levocetirizine 5 mg PO DAILY magnesium oxide 500 mg PO DAILY [id number]-FA-vit K 45 mg iron- 800 mcg-120 mcg (Bariatric Multivitamins) caps PO rivaroxaban (Xarelto) 10 mg PO DAILY rosuvastatin 5 mg PO DAILY semaglutide (weight loss) 0.5 mg (0.5 mL) subcut QWEEK 30 days zinc gluconate 10 mg PO DAILY Tobacco use date assessed: 07/23/24 Dental Screening Dental Screen Date: 07/23/24 Did you have a dental visit in the last 12 months?: Yes Did you have a dental problem in the last 6 months where you did not have access to dental care?: No Was dental information given to patient?: Patient has dentist HPI 4 wks f/u labs Andriod [phone] HPI Details 59-year-old lady with morbid obesity on semaglutide 0.5 mg injected once a week. She has been tolerating medication but does get occasional abdominal cramping and constipation, has lost approximately 8 lb since starting higher dose a month ago. Patient states that she is not feeling as hungry on current medication. Has been compliant with healthy eating habits and has started walking for exercise. Latest fasting labs showed normal liver enzymes electrolytes and renal function, hemoglobin A1c is at 5.3% with average glucose at 105 mg/dL. She also states that she does have an appointment already with a new psychiatrist at [facility] next month. [facility] Medical History Umbilical hernia Uterine fibroid Cervical dysplasia Primary osteoarthritis of both knees Pulmonary embolism Seasonal allergies Steatosis, liver History of pulmonary embolism Osteoarthritis Depression Gastric reflux Hiatal hernia Hypertension Hyperlipidemia Surgical History S/P gastric bypass Status post right knee replacement History of right hip replacement H/O bariatric surgery History of cholecystectomy H/O umbilical hernia repair Family History Father Mental health disorder Sister Lymph node cancer Mental health disorder Thyroid disorder Mother Lymph node cancer Mental health disorder Mother Tumor Brother Substance use disorder Social History Household Members: Spouse Housing: Apartment Are you a primary outdoor emergency care technician to a significant other at home: No Do you presently have visiting nurse or other home services: No Alcohol intake: current Alcohol intake frequency: holidays/special occasions only Patient Tobacco Use Status: Never used Tobacco e-Cigarette/Vaping Use: Never Used service: No Current occupational status: unemployed and disabled Gender identity: Female Cognitive needs: No Hearing needs: No Vision needs: Yes Female Reproductive History Menstrual Age of Menarche: 12 Questionnaire Thrive Questionnaire Date Thrive assessed: 06/22/24 ENDY-7 AMB Questionnaire ENDY-7 Date ENDY - 7 assessed: 04/06/24 Source: Developed by Drs. Tye May, Courtney Bolaños, Lee Candelaria and colleagues, with an educational joann from [email or web address]. Review of Systems Const Denies fever(s), Denies headache(s) and Denies weakness Eyes Details: sees Danna Brunson ENT Denies dizziness and Denies headache(s) Card Denies chest pain, Denies chest pain with activity, Denies syncope, Denies rapid heart rate, Denies pedal edema, Denies lightheadedness, Denies palpitations, Denies dyspnea and Denies dyspnea on exertion Resp Denies cough, Denies dyspnea and Denies dyspnea on exertion GI Reports as per HPI, Denies melena, Denies hematochezia and Reports heartburn (Controlled with famotidine) Reports no additional complaints Musc Denies abnormal gait, Denies muscle cramps, Denies muscle weakness, Denies numbness, Denies radiating pain into limb and Denies tingling Neuro Denies abnormal gait, Denies dizziness, Denies syncope, Denies headache(s), Denies numbness, Denies tingling and Denies weakness Endo Denies palpitations [place]/Lymph Denies easy bleeding and Denies easy bruising Aller/Immun Reports no additional complaints Physical exam (Primary Care) Tobacco/Smoking Status: Tobacco use Status Tobacco use date assessed 07/23/24 07/23/24 09:15 Patient Tobacco Use Status Never used Tobacco 07/23/24 09:15 e-Cigarette/Vaping Use Never Used 07/23/24 09:15 Thrive Assessment: Date of Thrive Assessment Date Thrive assessed 06/22/24 07/23/24 09:15 Telehealth Telehealth Telehealth Platform: [employer] Location of provider rendering services: practice address Location of patient: address on file Patient Identification confirmed using: Name, : Yes Telehealth method: video Patient verbally consented to treatment: Yes Patient verbally consented to billing insurance company: Yes Patient informed of any privacy concerns related to visit: Yes Minutes spent on Phone/Video with Pt.: 15 Results Reviewed Results Reviewed: Name: Nadine Clifford Age/Sex: 59/F : 1965 Unit#: [id number] Attend Dr: Denisha Schwartz MD Re07/16/24 Status: DEP REF Location: [facility] Disch: SPEC : [id number] GARRISON: 07/16/24 STATUS: COMP REQ : [id number] RECD: 07/16/[address]: Denisha Schwartz MD COMP: 07/16/249 ENTERED: 07/16/[address]: ORDERED: CMP Fast, TSH Rflx Test Result Flag Reference Sodium 140 135-145 mmol/L Potassium 4.1 3.3-5.1 mmol/L CL 109 H 96-108 mmol/L CO2 23 22-29 mmol/L Gap 12 12-20 BUN 19 H 9-16 mg/dL Creat 0.72 0.5-1.4 mg/dL EGFR > 60 NOTE: For -[place] individuals, multiply the result by 1.210. Chronic Kidney Disease: Estimated GFR < 60 mL/min/1.73m2 Severe Kidney Disease: Estimated GFR < 15 mL/min/1.73m2 FBS 93 60-99 mg/dL CA 9.6 8.4-10.2 mg/dL Total Bili 0.7 0.0-1.0 mg/dL AST (GOT) 25 5-31 U/L ALT (GPT) 20 0-31 U/L Protein, Total 7.2 6.5-8.0 g/dL Alb 4.1 3.5-5.0 g/dL Alk Phos 110 39-117 U/L TSH 1.33 0.32-4.0 uIU/mL Laboratory Tests 07/16/24 08:29 Estimat Average Glucose 105 Hemoglobin A1c % 5.3 Assessment and Plan Assessment & Plan (1) Morbid obesity: Code(s): E66.01 - Morbid (severe) obesity due to excess calories Plan: Has lost 8 lb since last visit a month ago on higher dose of semaglutide 0.5 mg injected once a week. Will continue on current dose, tolerating medication well with occasional constipation abdominal cramps during day 1 and 2 of administering medication and resolve spontaneoslu. Reinforced importance of following recommended diet and getting regular exercise in addition to taking the medication to help with weight loss. See her back for follow-up in 1 month Coding Level of Care Code Tele Est Pt Level 3 (35032) Diagnoses Morbid obesity E66.01
== END 2024-07-23 12:20 | disposition home or self-care (01) ==
LOC: HO.HMGC 09:15
PROVIDERS: PCP Internal Medicine; Visit Provider Internal Medicine
DX: E66.01 Morbid (severe) obesity due to excess calories (principal)
CPT/HCPCS: 99213

== ENCOUNTER 2024-09-15 10:03 | Outpatient (REF) | payer MEDICARE, MEDICAID, SELFPAY ==
[2024-09-15 13:54] LABS: Alanine Aminotransferase 21 U/L (0-31); Anion Gap 12 (12-20); Aspartate Amino Transferase 28 U/L (5-31); Blood Urea Nitrogen 18 mg/dL (9-16); Calcium 9.6 mg/dL (8.4-10.2); Carbon Dioxide 22 mmol/L (22-29); Chloride 110 mmol/L (96-108); Cholesterol 173 mg/dL (<200); Estimated Glomerular Filt Rate > 60; Glucose Fasting 95 mg/dL (60-99); HDL Cholesterol 71 mg/dL (>40); LDL Cholesterol Calculated 80 mg/dL (<100); Potassium 4.3 mmol/L (3.3-5.1); Sodium 140 mmol/L (135-145); Triglycerides 112 mg/dL (<150)
[2024-09-15 14:16] LABS: Folate 10.1 ng/mL (> or = 4.0); Vitamin B12 487 pg/mL (200-900)
[2024-09-22 15:33] LABS: Vitamin B1 8 nmol/L (8-30)
== END 2024-09-15 10:04 | disposition home or self-care (01) ==
LOC: HO.HMGCLDS 10:03
PROVIDERS: PCP Internal Medicine; Visit Provider Internal Medicine
DX: E66.01 Morbid (severe) obesity due to excess calories (principal); I10 Essential (primary) hypertension; E78.00 Pure hypercholesterolemia, unspecified; R79.89 Other specified abnormal findings of blood chemistry
CPT/HCPCS: 36415; 80048; 80061; 82607; 82746; 84425; 84450; 84460

== ENCOUNTER 2024-09-22 13:09 | Outpatient (AMB) | payer MEDICARE, MEDICAID, SELFPAY ==
[2024-09-22 14:04] VITALS: BP 110/80; PULSE 91; O2SAT 95; BMI 42.1
--- NOTE | 2024-09-22 14:04 | A.OFFPC_ITS ---
Vital Signs 09/22/24 14:04 Height 5 ft 8 in Weight 277 lb BMI 42.1 BP 110/80 Blood Pressure Location Lt radial Position Sitting Pulse 91 Pulse Source Pulse Oximeter Pulse Oximetry (%) 95 Oxygen Delivery Method Room Air Intake Visit Reasons: Wegovy check in Allergies No Known Allergies Allergy (Verified 09/22/24 14:25) Medication List - Last Reconciled 09/22/24 by Denisha Schwartz MD calcium citrate-vitamin D3 315 mg-5 mcg (200 unit) 1 tab PO BID [Celebrate MVI 1 tab PO DAILY] cholecalciferol (vitamin D3) 50 mcg PO DAILY clotrimazole-betamethasone 1-0.05 % 1 appl topical BID 10 days cyclobenzaprine 10 mg PO BEDTIME PRN famotidine 40 mg PO DAILY ferrous fumarate (Ferretts) 325 mg PO DAILY fluoxetine 40 mg PO DAILY fluticasone propionate 50 mcg/actuation 1 spray intranasal DAILY hydrochlorothiazide 12.5 mg PO 3XW PRN levocetirizine 5 mg PO DAILY magnesium oxide 500 mg PO DAILY nnejijxsqhlo-xvn-zfrq-FA-vit K 45 mg iron- 800 mcg-120 mcg (Bariatric Multivitamins) caps PO rivaroxaban (Xarelto) 10 mg PO DAILY rosuvastatin 5 mg PO DAILY semaglutide (weight loss) 0.5 mg (0.5 mL) subcut QWEEK 30 days zinc gluconate 10 mg PO DAILY Tobacco use date assessed: 09/22/24 Dental Screening Dental Screen Date: 09/22/24 Did you have a dental visit in the last 12 months?: Yes Did you have a dental problem in the last 6 months where you did not have access to dental care?: Yes Was dental information given to patient?: Patient has dentist HPI Wesusiy check in HPI Details Here today for follow-up with regards to weight loss after starting we go be approximately 2 months ago. Currently on 0.5 mg dose weekly. Patient states that she initially has lost weight but has plateaued. She did notice appetite has been better controlled, and has been able to fit into her a small closed size already. Denies any side effects from medication. Has hypertension and hyperlipidemia, currently stable controlled on present treatment. [facility] Medical History Umbilical hernia Uterine fibroid Cervical dysplasia Primary osteoarthritis of both knees Pulmonary embolism Seasonal allergies Steatosis, liver History of pulmonary embolism Osteoarthritis Depression Gastric reflux Hiatal hernia Hypertension Hyperlipidemia Surgical History S/P gastric bypass Status post right knee replacement History of right hip replacement H/O bariatric surgery History of cholecystectomy H/O umbilical hernia repair Family History Father Mental health disorder Sister Lymph node cancer Mental health disorder Thyroid disorder Mother Lymph node cancer Mental health disorder Mother Tumor Brother Substance use disorder Social History Household Members: Spouse Housing: Apartment Are you a primary campground caretaker to a significant other at home: No Do you presently have visiting nurse or other home services: No Alcohol intake: current Alcohol intake frequency: holidays/special occasions only Patient Tobacco Use Status: Never used Tobacco e-Cigarette/Vaping Use: Never Used service: No Current occupational status: unemployed and disabled Gender identity: Female Cognitive needs: No Hearing needs: No Vision needs: Yes Female Reproductive History Menstrual Age of Menarche: 12 Questionnaire Thrive Questionnaire Date Thrive assessed: 06/15/24 I am a: Patient What is your living situation today?: I have a steady place to live Within the past 12 months, did the food you bought not last and you didn't have the money to get more?: Often true Within the past 12 months, did you worry whether your food would run out before you got money to buy more?: Often true Do you have trouble paying for medicines?: No Do you have trouble getting transportation to medical appointments?: No Do you have trouble paying your heating and electricity bill?: Yes Do you have trouble taking care of your child, family member or friend?: No Do you have trouble with day-to-day activities such as bathing, preparing meals, shopping, managing finances, etc.?: No Are you currently unemployed and looking for a job?: Yes Are you interested in more education?: No Currently or been in a relationship where the following occur: No concerns reported THRIVE Score: 3 ENDY-7 AMB Questionnaire ENDY-7 Date ENDY - 7 assessed: 04/06/24 Source: Developed by Drs. Tye May, Courtney Bolaños, Lee Candelaria and colleagues, with an educational joann from [employer]. Review of Systems Const Reports no additional complaints and Reports weight loss (Minimal weight loss) Card Reports no additional complaints Resp Reports no additional complaints GI Reports no additional complaints Endo Reports no additional complaints Physical exam (Primary Care) Vital Signs: Last Vital Signs Pulse 91 09/22/24 14:04 BP 110/80 09/22/24 14:04 Pulse Ox 95 09/22/24 14:04 Oxygen Delivery Method Room Air 09/22/24 14:04 BMI result Body Mass Index 42.1 Tobacco/Smoking Status: Tobacco use Status Tobacco use date assessed 09/22/24 09/22/24 14:14 Patient Tobacco Use Status Never used Tobacco 09/22/24 14:07 e-Cigarette/Vaping Use Never Used 09/22/24 14:07 Thrive Assessment: Date of Thrive Assessment Date Thrive assessed 06/15/24 09/22/24 14:07 Currently or been in a relationship where the following occur: No concerns reported Const Other: Obese, Alert oriented x3, ambulatory with normal gait HENMT Mouth: Normal oral and palatal mucosa present and moist mucous membranes Eyes General: appearance normal, both eyes and all related structures Neck Other: Supple, no lymphadenopathy thyroid gland nonpalpable Resp Auscultation: clear to auscultation bilaterally Cardio Other: S1-S2 present regular rate and rhythm GI Other: Obese, soft, nontender with no mass palpated Skin General skin exam: no rashes or lesions noted Extrem General: Yes full ROM, Yes no clubbing, cyanosis or edema and Yes normal gait Results Reviewed Results Reviewed: Name: Nadine Clifford Age/Sex: 59/F : 1965 Unit#: [id number] Attend Dr: Denisha Schwartz MD Re09/15/24 Status: DEP [facility]F [facility] Disch: SPEC : [id number] GARRISON: 09/15/24-1011 STATUS: COMP REQ : [id number] RECD: 09/15/24-[address]: Denisha Schwartz MD COMP: 09/15/24-1354 ENTERED: 09/15/24-1011 [facility] : ORDERED: Met Prof Fast, AST, ALT, Lipid Panel Test Result Flag Reference Sodium 140 135-145 mmol/L Potassium 4.3 3.3-5.1 mmol/L CL 110 H 96-108 mmol/L CO2 22 22-29 mmol/L Gap 12 12-20 BUN 18 H 9-16 mg/dL Creat 0.68 0.5-1.4 mg/dL EGFR > 60 NOTE: For -[place] individuals, multiply the result by 1.210. Chronic Kidney Disease: Estimated GFR < 60 mL/min/1.73m2 Severe Kidney Disease: Estimated GFR < 15 mL/min/1.73 m2 FBS 95 60-99 mg/dL CA 9.6 8.4-10.2 mg/dL AST (GOT) 28 5-31 U/L ALT (GPT) 21 0-31 U/L Triglyceride 112 <150 mg/dL Desirable Triglyceride: less than 150 mg/dL Borderline High Triglyceride 150-199 mg/dL High Triglyceride: 200-499 mg/dL Very High Triglyceride: greater than or equal to 5OO mg/dL Cholesterol 173 <200 mg/dL Desirable Cholesterol: less than 200 mg/dL Borderline High Cholesterol: 200-239 mg/dL High Cholesterol: greater than 239 mg/dL LDL Calculated 80 <100 mg/dL Desirable LDL: less than 100 mg/dL Near Optimal/Above Optimal LDL: 110-129 mg/dL Borderline High LDL: 130-159 mg/dL High LDL: 160-189 mg/dL Very High LDL: greater than or equal to 190 mg/dL HDL 71 >40 mg/dL Desirable HDL: greater than 40 mg/dL Note: This HDL assay may give artificially low results in patients with liver disease. Laboratory Tests 09/15/24 10:14 Vitamin B12 487 Folate 10.1 Coding Level of Care Code Est Pt Level 4 (56658) Complex EM visit Add On G2211 Diagnoses Morbid obesity E66.01 Essential hypertension I10 Hypertension type: essential hypertension Pure hypercholesterolemia E78.00 Hyperlipidemia type: pure hypercholesterolemia Assessment & Plan Assessment & Plan (1) Morbid obesity: Code(s): E66.01 - Morbid (severe) obesity due to excess calories Category: Medical Plan: Tolerating wegovy, continue with 0.5 mg once a week, reinforced importance of combining this with diet and exercise. Will see her back for follow-up in 10/2024 (2) Hypertension: Code(s): I10 - Essential (primary) hypertension Category: Medical Qualifiers: Hypertension type: essential hypertension Qualified Code(s): I10 - Essential (primary) hypertension Plan: Blood pressure stable and controlled on present treatment (3) Hyperlipidemia: Code(s): E78.5 - Hyperlipidemia, unspecified Category: Medical Qualifiers: Hyperlipidemia type: pure hypercholesterolemia Qualified Code(s): E78.00 - Pure hypercholesterolemia, unspecified Plan: Recent fasting labs showed lipids within normal limits. Continue with r osuvastatin 5 mg daily
== END 2024-09-22 14:41 | disposition home or self-care (01) ==
LOC: HO.HMCC 13:09
PROVIDERS: PCP Internal Medicine; Visit Provider Internal Medicine
DX: I10 Essential (primary) hypertension (principal); E66.01 Morbid (severe) obesity due to excess calories; E78.00 Pure hypercholesterolemia, unspecified; Z68.41 Body mass index [BMI] 40.0-44.9, adult

== ENCOUNTER → 2024-09-22 13:09 | Outpatient (BNVA) | payer MEDICARE, MEDICAID, SELFPAY | PROVIDERS: PCP Internal Medicine; Visit Provider Internal Medicine | DX: E66.01 Morbid (severe) obesity due to excess calories (principal); E78.00 Pure hypercholesterolemia, unspecified; Z79.899 Other long term (current) drug therapy | CPT/HCPCS: 99212 ==

== ENCOUNTER 2024-11-15 12:21 | Outpatient (AMB) | payer MEDICARE, MEDICAID, SELFPAY ==
--- NOTE | 2024-11-15 13:13 | MHC.PC.OV ---
Vital Signs 11/15/24 13:14 Height 5 ft 8 in Weight 270 lb BMI 41.0 BP 124/70 Blood Pressure Location Lt brachial Position Sitting Pulse 91 Pulse Source Pulse Oximeter Pulse Oximetry (%) 95 Oxygen Delivery Method Room Air Intake Visit Reasons: Follow up/Wegovy Intake Note: Pt is here today for her weigh in/wegovy Allergies No Known Allergies Allergy (Verified 11/22/24 00:57) Medication List - Last Reconciled 11/15/24 by Denisha Schwartz MD bupropion HCl XL 150 mg PO QAM calcium citrate-vitamin D3 315 mg-5 mcg (200 unit) 1 tab PO BID [Celebrate MVI 1 tab PO DAILY] cholecalciferol (vitamin D3) 50 mcg PO DAILY clotrimazole-betamethasone 1-0.05 % 1 appl topical BID 10 days cyclobenzaprine 10 mg PO BEDTIME PRN famotidine 40 mg PO DAILY ferrous fumarate (Ferretts) 325 mg PO DAILY fluoxetine 40 mg PO DAILY fluticasone propionate 50 mcg/actuation 1 spray intranasal DAILY hydrochlorothiazide 12.5 mg PO 3XW PRN levocetirizine 5 mg PO DAILY fuihxljnuwyg-oxw-lxhg-FA-vit K 45 mg iron- 800 mcg-120 mcg (Bariatric Multivitamins) caps PO rivaroxaban (Xarelto) 10 mg PO DAILY rosuvastatin 5 mg PO DAILY semaglutide (weight loss) (Wegovy) 1 mg (0.5 mL) subcut QWEEK zinc gluconate 10 mg PO DAILY Tobacco use date assessed: 11/15/24 Dental Screening Dental Screen Date: 11/15/24 Did you have a dental visit in the last 12 months?: Yes Did you have a dental problem in the last 6 months where you did not have access to dental care?: No Was dental information given to patient?: Patient has dentist HPI Follow up/Wegovy HPI Details 59-year-old lady with morbid obesity, here today for follow-up regarding her weight after starting Wegovy. She is currently taking 1 mg injections once a week with weight loss of 7 lb in 1 and a half months. Has been tolerating medication well, with no adverse effects reported [facility] Medical History Umbilical hernia Uterine fibroid Cervical dysplasia Primary osteoarthritis of both knees Pulmonary embolism Seasonal allergies Steatosis, liver History of pulmonary embolism Osteoarthritis Depression Gastric reflux Hiatal hernia Hypertension Hyperlipidemia Surgical History S/P gastric bypass Status post right knee replacement History of right hip replacement H/O bariatric surgery History of cholecystectomy H/O umbilical hernia repair Family History Father Mental health disorder Sister Lymph node cancer Mental health disorder Thyroid disorder Mother Lymph node cancer Mental health disorder Mother Tumor Brother Substance use disorder Social History Household Members: Spouse Housing: Apartment Are you a primary care assistant to a significant other at home: No Do you presently have visiting nurse or other home services: No Alcohol intake: current Alcohol intake frequency: holidays/special occasions only Patient Tobacco Use Status: Never used Tobacco e-Cigarette/Vaping Use: Never Used service: No Current occupational status: unemployed and disabled Gender identity: Female Cognitive needs: No Hearing needs: No Vision needs: Yes Female Reproductive History Menstrual Age of Menarche: 12 Questionnaire Thrive Questionnaire Date Thrive assessed: 06/15/24 I am a: Patient What is your living situation today?: I have a steady place to live Within the past 12 months, did the food you bought not last and you didn't have the money to get more?: Often true Within the past 12 months, did you worry whether your food would run out before you got money to buy more?: Often true Do you have trouble paying for medicines?: No Do you have trouble getting transportation to medical appointments?: No Do you have trouble paying your heating and electricity bill?: Yes Do you have trouble taking care of your child, family member or friend?: No Do you have trouble with day-to-day activities such as bathing, preparing meals, shopping, managing finances, etc.?: No Are you currently unemployed and looking for a job?: Yes Are you interested in more education?: No Currently or been in a relationship where the following occur: No concerns reported THRIVE Score: 3 ENDY-7 AMB Questionnaire ENDY-7 Date ENDY - 7 assessed: 04/06/24 Source: Developed by Drs. Tye May, Courtney Bolaños, Lee Candelaria and colleagues, with an educational joann from [employer]. Review of Systems Const Reports no additional complaints and Reports weight loss Card Reports no additional complaints Resp Reports no additional complaints GI Reports no additional complaints Musc Reports no additional complaints Endo Reports no additional complaints Physical exam (Primary Care) Vital Signs: Last Vital Signs Pulse 91 11/15/24 13:14 BP 124/70 11/15/24 13:14 Pulse Ox 95 11/15/24 13:14 Oxygen Delivery Method Room Air 11/15/24 13:14 BMI result Body Mass Index 41.0 Tobacco/Smoking Status: Tobacco use Status Tobacco use date assessed 11/15/24 11/15/24 13:22 Patient Tobacco Use Status Never used Tobacco 11/15/24 13:16 e-Cigarette/Vaping Use Never Used 11/15/24 13:16 Thrive Assessment: Date of Thrive Assessment Date Thrive assessed 06/15/24 11/15/24 13:16 Currently or been in a relationship where the following occur: No concerns reported Const Other: Obese, Alert oriented x3, ambulatory with normal gait HENMT Mouth: Normal oral and palatal mucosa present and moist mucous membranes Neck Other: Supple, no lymphadenopathy thyroid gland nonpalpable Resp Auscultation: clear to auscultation bilaterally Cardio Other: S1-S2 present regular rate and rhythm GI Other: Obese, soft, nontender with no mass palpated Skin General skin exam: no rashes or lesions noted Extrem General: Yes full ROM, Yes no clubbing, cyanosis or edema and Yes normal gait Results Reviewed Results Reviewed: Name: Nadine Clifford Age/Sex: 59/F : 1965 Unit#: [id number] Attend Dr: Denisha Schwartz MD Re09/15/24 Status: DEP REF Location: [facility] Disch: SPEC : [id number] GARRISON: 09/15/24 STATUS: COMP REQ : [id number] RECD: 09/15/[address]: Denisha Schwartz MD COMP: 09/15/24 ENTERED: 09/15/[address]: ORDERED: Met Prof Fast, AST, ALT, Lipid Panel Test Result Flag Reference Sodium 140 135-145 mmol/L Potassium 4.3 3.3-5.1 mmol/L CL 110 H 96-108 mmol/L CO2 22 22-29 mmol/L Gap 12 12-20 BUN 18 H 9-16 mg/dL Creat 0.68 0.5-1.4 mg/dL EGFR > 60 NOTE: For -[place] individuals, multiply the result by 1.210. Chronic Kidney Disease: Estimated GFR < 60 mL/min/1.73m2 Severe Kidney Disease: Estimated GFR < 15 mL/min/1.73m2 FBS 95 60-99 mg/dL CA 9.6 8.4-10.2 mg/dL AST (GOT) 28 5-31 U/L ALT (GPT) 21 0-31 U/L Triglyceride 112 <150 mg/dL Desirable Triglyceride: less than 150 mg/dL Borderline High Triglyceride 150-199 mg/dL High Triglyceride: 200-499 mg/dL Very High Triglyceride: greater than or equal to 5OO mg/dL Cholesterol 173 <200 mg/dL Desirable Cholesterol: less than 200 mg/dL Borderline High Cholesterol: 200-239 mg/dL High Cholesterol: greater than 239 mg/dL LDL Calculated 80 <100 mg/dL Desirable LDL: less than 100 mg/dL Near Optimal/Above Optimal LDL: 110-129 mg/dL Borderline High LDL: 130-159 mg/dL High LDL: 160-189 mg/dL Very High LDL: greater than or equal to 190 mg/dL HDL 71 >40 mg/dL Desirable HDL: greater than 40 mg/dL Note: This HDL assay may give artificially low results in patients with liver disease. Coding Level of Care Code Est Pt Level 4 (74933) Complex EM visit Add On G2211 Diagnoses Morbid obesity E66.01 Pure hypercholesterolemia E78.00 Hyperlipidemia type: pure hypercholesterolemia Swelling of lower leg M79.89 Assessment & Plan Assessment & Plan (1) Morbid obesity: Code(s): E66.01 - Morbid (severe) obesity due to excess calories Category: Medical Plan: Will continue on Wegovy at 1 mg injected subcutaneously once a week. Reinforced importance of combining this with a healthy diet and getting regular exercise. (2) Hyperlipidemia: Code(s): E78.5 - Hyperlipidemia, unspecified Category: Medical Qualifiers: Hyperlipidemia type: pure hypercholesterolemia Qualified Code(s): E78.00 - Pure hypercholesterolemia, unspecified Plan: Continue rosuvastatin 5 mg daily, repeat fasting lipids in 12/2024 (3) Swelling of lower leg: Code(s): M79.89 - Other specified soft tissue disorders Category: Medical Plan: Prescription sent for hydrochlorothiazide 12.5 mg per tablet to take 1 tablet times a week as needed for leg swelling. If symptoms persist to notify us immediately especially if accompanied by any shortness of breath Orders: Orders Basic Metabolic Panel Fasting 12/25/24 E66.01 - Morbid (severe) obesity due to excess calories, E78.00 - Pure hypercholesterolemia, unspecified, I10 - Essential (primary) hypertension, Z78.0 - Asymptomatic menopausal state Alanine Aminotransferase 12/25/24 E66.01 - Morbid (severe) obesity due to excess calories, E78.00 - Pure hypercholesterolemia, unspecified, I10 - Essential (primary) hypertension, Z78.0 - Asymptomatic menopausal state Lipid Panel 12/25/24 E66.01 - Morbid (severe) obesity due to excess calories, E78.00 - Pure hypercholesterolemia, unspecified, I10 - Essential (primary) hypertension, Z78.0 - Asymptomatic menopausal state Aspartate Amino Transferase 12/25/24 E66.01 - Morbid (severe) obesity due to excess calories, E78.00 - Pure hypercholesterolemia, unspecified, I10 - Essential (primary) hypertension, Z78.0 - Asymptomatic menopausal state Vitamin D 25-OH Total 12/25/24 E66.01 - Morbid (severe) obesity due to excess calories, E78.00 - Pure hypercholesterolemia, unspecified, I10 - Essential (primary) hypertension, Z78.0 - Asymptomatic menopausal state Medications: New hydrochlorothiazide 12.5 mg PO 3XW PRN 30 tabs 0RF Edema
[2024-11-15 13:14] VITALS: BP 124/70; PULSE 91; O2SAT 95; BMI 41.0
== END 2024-11-15 13:56 | disposition home or self-care (01) ==
PROVIDERS: PCP Internal Medicine; Visit Provider Internal Medicine
DX: E78.00 Pure hypercholesterolemia, unspecified (principal); E66.01 Morbid (severe) obesity due to excess calories; Z68.41 Body mass index [BMI] 40.0-44.9, adult; M79.89 Other specified soft tissue disorders

== ENCOUNTER → 2024-11-15 12:21 | Outpatient (BNVA) | payer MEDICARE, MEDICAID, SELFPAY | PROVIDERS: PCP Internal Medicine; Visit Provider Internal Medicine | DX: E66.01 Morbid (severe) obesity due to excess calories (principal); Z68.41 Body mass index [BMI] 40.0-44.9, adult; E78.00 Pure hypercholesterolemia, unspecified; M79.89 Other specified soft tissue disorders; Z71.3 Dietary counseling and surveillance | CPT/HCPCS: 99212 ==

== ENCOUNTER 2024-11-16 10:44 | Outpatient (REF) | payer MEDICARE, MEDICAID, SELFPAY | END 2024-11-16 10:45 | disposition home or self-care (01) | LOC: HO.MAMMO 10:44 | PROVIDERS: PCP Internal Medicine; Visit Provider Internal Medicine | DX: Z12.31 Encounter for screening mammogram for malignant neoplasm of breast (principal) | CPT/HCPCS: 77063; 77067 ==

== ENCOUNTER → 2024-11-16 11:00 | Outpatient (BNV) | payer MEDICARE, MEDICAID, SELFPAY | PROVIDERS: PCP Internal Medicine; Visit Provider Internal Medicine | DX: Z12.31 Encounter for screening mammogram for malignant neoplasm of breast (principal) | CPT/HCPCS: 77063; 77067 ==

== ENCOUNTER 2024-12-23 13:31 | Outpatient (REF) | payer MEDICARE, MEDICAID, SELFPAY ==
--- NOTE | ~2024-12-23 | US_ITS ---
EXAMINATION: MM DIAGNOSTIC DIGITAL BREAST TOMOSYNTHESIS, RIGHT Limited right breast ultrasound. CLINICAL INFORMATION: Call back from screening for focal asymmetry in the upper outer breast anterior depth with associated architectural distortion. COMPARISON: Mammography: Comparison is made with available prior examinations. TECHNIQUE: Digital breast tomosynthesis is performed in both the craniocaudal and mediolateral oblique views along with computer-aided detection (CAD). Synthesized 2D images are generated from the tomosynthesis. Limited right breast ultrasound. FINDINGS: There are scattered areas of fibroglandular density (ACR BI-RADS breast composition Category b). Focal asymmetry in the upper outer breast anterior depth persists with associated architectural distortion on additional imaging projections. No suspicious calcifications or other abnormal findings. Targeted color Doppler ultrasound demonstrates a hypoechoic taller than wide irregular solid mass at 10:00 7 cm from the nipple measuring 6 x 3 x 4 mm with posterior shadowing. US/US breast RT limited mamm only IMPRESSION: Focal asymmetry in the upper outer quadrant with associated architectural distortion anterior depth correlating to a solid irregular mass at 10:00 7 cm from the nipple. Recommend ultrasound-guided core needle biopsy for histology confirmation. The findings and recommendations were discussed with the patient the procedure will be scheduled. ASSESSMENT: BI-RADS BI-RADS 4 - Suspicious finding RECOMMENDATION: Biopsy recommended Results were provided to the patient at time of visit by the technologist. This patient's information was entered into a reminder system with a target due date for their next mammogram. Electronically signed by: Amaris Christina DO 12/23/2024 03:24 PM GERARDO EMERSON
== END 2024-12-23 13:32 | disposition home or self-care (01) ==
LOC: HO.MAMMO 13:31
PROVIDERS: PCP Internal Medicine; Visit Provider Internal Medicine
DX: N64.89 Other specified disorders of breast (principal)
CPT/HCPCS: 76642; 77061; 77065

== ENCOUNTER → 2024-12-23 14:00 | Outpatient (BNV) | payer MEDICARE, MEDICAID, SELFPAY | PROVIDERS: PCP Internal Medicine; Visit Provider Internal Medicine | DX: N64.89 Other specified disorders of breast (principal); R92.321 Mammographic fibroglandular density, right breast | CPT/HCPCS: 76642; 77065; G0279 ==

== ENCOUNTER 2025-01-04 14:36 | Outpatient (AMB) | payer MEDICARE, MEDICAID, SELFPAY ==
--- NOTE | 2025-01-04 14:38 | MHC.OFFVIS ---
Vital Signs 01/04/25 14:52 Height 5 ft 8 in Weight 268 lb 4 oz BMI 40.8 BP 170/91 H Blood Pressure Location Lt brachial Position Sitting Pulse 90 Intake Visit Reasons: US breast biopsy Intake Note: Patient is seen in office for biopsy CONSULT, following right breast symmetry upper outer quadrant. 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: Ship Boat Or Barge Mate Present Accompanied by: Family/Other Allergies No Known Allergies Allergy (Verified 01/04/25 14:53) Medication List - Last Reconciled 01/04/25 by Kevin Torres MD bupropion HCl XL 150 mg PO QAM calcium citrate-vitamin D3 315 mg-5 mcg (200 unit) 1 tab PO BID [Celebrate MVI 1 tab PO DAILY] cholecalciferol (vitamin D3) 50 mcg PO DAILY clotrimazole-betamethasone 1-0.05 % 1 appl topical BID 10 days cyclobenzaprine 10 mg PO BEDTIME PRN famotidine 40 mg PO DAILY ferrous fumarate (Ferretts) 325 mg PO DAILY fluoxetine 40 mg PO DAILY fluticasone propionate 50 mcg/actuation 1 spray intranasal DAILY hydrochlorothiazide 12.5 mg PO 3XW PRN levocetirizine 5 mg PO DAILY qjexebgwaced-qsp-lqxl-FA-vit K 45 mg iron- 800 mcg-120 mcg (Bariatric Multivitamins) caps PO rivaroxaban (Xarelto) 10 mg PO DAILY rosuvastatin 5 mg PO DAILY semaglutide (weight loss) (Wegovy) 1 mg (0.5 mL) subcut QWEEK trazodone 50 mg PO DAILY zinc gluconate 10 mg PO DAILY HPI Comments Details: 59-year-old female patient presenting with a screening mammogram performed on 11/16/2024 with additional images obtained on 12/23/2023 including ultrasound of the right breast. This revealed a focal asymmetry in the upper outer breast anterior depth persistent with associated architectural distortion on additional imaging projections. No suspicious calcifications or other abnormalities were identified. Targeted Doppler ultrasound revealed a hypoechoic taller than wide irregular solid mass in the 10 o'clock position, 7 cm from the nipple measuring 6 x 3 x 4 mm with posterior shadowing. This was felt to be suspicious for malignancy and ultrasound-guided core biopsy recommended. She is scheduled for an ultrasound-guided core biopsy tomorrow at the [facility]. She denies a previous history of breast problems or breast surgery. Family history is significant for sister developing breast cancer at the age of 63. She underwent radiation therapy and antiestrogen therapy. She denies any other family members with breast or ovarian cancer. Her sister did not undergo genetic testing. Patient has a prior history of progesterone use but subsequently developed blood clots therefore the medication was stopped. Her menarche was the age of 12. She is 1 and menopause was at the age of 51. [facility] Medical History Umbilical hernia Uterine fibroid Cervical dysplasia Primary osteoarthritis of both knees Pulmonary embolism Seasonal allergies Steatosis, liver History of pulmonary embolism Osteoarthritis Depression Gastric reflux Hiatal hernia Hypertension Hyperlipidemia Surgical History S/P gastric bypass Status post right knee replacement History of right hip replacement H/O bariatric surgery History of cholecystectomy H/O umbilical hernia repair Family History Father Mental health disorder Sister Lymph node cancer Mental health disorder Thyroid disorder Mother Lymph node cancer Mental health disorder Mother Tumor Brother Substance use disorder Social History Household Members: Spouse Housing: Apartment Are you a primary care director to a significant other at home: No Do you presently have visiting nurse or other home services: No Alcohol intake: current Alcohol intake frequency: holidays/special occasions only Patient Tobacco Use Status: Never used Tobacco e-Cigarette/Vaping Use: Never Used service: No Current occupational status: unemployed and disabled Gender identity: Female Cognitive needs: No Hearing needs: No Vision needs: Yes Female Reproductive History Menstrual Age of Menarche: 12 Age of menopause: 51 Total pregnancies: 1 Number of Living Children: 0 Review of Systems Const All systems reviewed & are unremarkable except as noted in HPI and below Physical Exam Vital Signs: Last Vital Signs Pulse 90 01/04/25 14:52 BP 170/91 H 01/04/25 14:52 BMI result Body Mass Index 40.8 Const General: cooperative and no acute distress Nutritional Appearance: well nourished Orientation/consciousness: patient oriented x3 Limitations: no limitations HEENT Head: Yes normocephalic and Yes atraumatic Ears: hearing grossly normal bilaterally Chest Other: Large pendulous breasts bilaterally Left breast: No skin change, no nipple retraction, no nipple discharge, no palpable mass, no enlarged lymph nodes. Right breast: No skin change, no nipple retraction, no nipple discharge, no palpable mass, no enlarged lymph nodes Resp Effort & Inspection: normal respiratory effort, no audible wheezes, no cough and no respiratory distress Cardio Jugular venous distension: no JVD GI Inspection: Yes normal to inspection Skin Other: Warm, dry, no rash Neuro General: patient oriented x3 Extrem General: Yes no clubbing, cyanosis or edema Results Reviewed Results Reviewed: Assessment & Plan Assessment & Plan (1) Abnormal ultrasound of breast: Code(s): R92.8 - Other abnormal and inconclusive findings on diagnostic imaging of breast Category: Medical (2) Abnormal mammogram of right breast: Code(s): R92.8 - Other abnormal and inconclusive findings on diagnostic imaging of breast Category: Medical Plan 59-year-old female patient presenting with an architectural distortion noted in the right breast at the 10 o'clock position 7 cm from the nipple. This was felt to be suspicious for malignancy an ultrasound-guided core biopsy recommended. She denies a previous history of breast problems or breast surgery. Her family history is significant for a sister with breast cancer. She is scheduled [facility]. I recommended follow-up examination in 1 week to review the pathology results and discuss treatment options. She expressed understanding and agrees with the plan. Coding Level of Care Code New Pt Level 4 (32181) Diagnoses Abnormal ultrasound of breast R92.8 Abnormal mammogram of right breast R92.8
[2025-01-04 14:52] VITALS: BP 170/91; PULSE 90; BMI 40.8
== END 2025-01-04 15:27 | disposition home or self-care (01) ==
PROVIDERS: PCP Internal Medicine; Visit Provider Surgery
DX: R92.8 Other abnormal and inconclusive findings on diagnostic imaging of breast (principal)
CPT/HCPCS: 99204

== ENCOUNTER → 2025-01-04 14:36 | Outpatient (BNVA) | payer MEDICARE, MEDICAID, SELFPAY | PROVIDERS: PCP Internal Medicine; Visit Provider Surgery | DX: R92.8 Other abnormal and inconclusive findings on diagnostic imaging of breast (principal) | CPT/HCPCS: 99202 ==

== ENCOUNTER 2025-01-05 08:46 | Outpatient (REF) | payer MEDICARE, MEDICAID, SELFPAY ==
--- NOTE | ~2025-01-05 | MM_ITS ---
PROCEDURE: ULTRASOUND-GUIDED RIGHT BREAST BIOPSY CLINICAL INFORMATION: Solid irregular mass with distortion at 10:00 in the right breast. COMPARISON: Comparison is made with available prior examinations. TECHNIQUE: The details of the procedure, as well as the risks, benefits, and alternatives to the procedure were explained to the patient in detail and all of her questions were answered, after which, written informed consent was obtained. PROCEDURE: Prior to the procedure, sonography revealed a irregular solid mass at 10:00. A time-out was performed, the lesion intended for biopsy was targeted and the skin of the right breast was then prepped and draped in the usual sterile fashion. Using sonographic guidance, sterile technique, and 1% lidocaine without epinephrine for local anesthesia, a total of 8 cores were obtained through the targeted area with a 14-gauge biopsy device. At the completion of tissue sampling, a single butterfly metallic clip was deposited at the biopsy site. An appropriate sample was obtained. The postprocedure 2-view direct digital mammogram reveals satisfactory positioning of the biopsy clip. The patient tolerated the procedure well and, after assuring adequate hemostasis, was discharged in good condition after reviewing postbiopsy breast care instructions. Final pathology results are pending. MM/MM tomosynthesis diagnostic RT IMPRESSION: 1. Uncomplicated sonographically-guided core biopsy of the right breast. The 2-view direct digital postprocedure mammogram reveals satisfactory positioning of the biopsy clip. 2. Final pathology results are pending. A separate report with final recommendations will be issued once these results are made available. Electronically signed by: Amaris Christina DO 01/05/2025 11:23 AM [facility]
[2025-01-05] MEDS: Sodium Bicarbonate 8.4% 50 MEQ/50 ML VIAL SUBCUT (10:02)
[2025-01-05] MEDS: Lidocaine HCl 1 % 20 ML VIAL 9 ML SUBCUT (10:02)
== END 2025-01-05 08:47 | disposition home or self-care (01) ==
LOC: HO.MAMMO 08:46
PROVIDERS: PCP Internal Medicine; Visit Provider Surgery
DX: R92.8 Other abnormal and inconclusive findings on diagnostic imaging of breast (principal)
CPT/HCPCS: 19083; 77061; 77065; 88305; 88342; 88360; A4648; J2003

== ENCOUNTER → 2025-01-05 09:00 | Outpatient (BNV) | payer MEDICARE, MEDICAID, SELFPAY | PROVIDERS: PCP Internal Medicine; Visit Provider Internal Medicine | DX: C50.811 Malignant neoplasm of overlapping sites of right female breast (principal) | CPT/HCPCS: 19083; 77065 ==

== ENCOUNTER 2025-01-14 07:42 | Outpatient (REF) | payer MEDICARE, MEDICAID, SELFPAY ==
[2025-01-14 10:20] LABS: Alanine Aminotransferase 48 U/L (0-31); Anion Gap 13 (12-20); Aspartate Amino Transferase 40 U/L (5-31); Blood Urea Nitrogen 20 mg/dL (9-16); Calcium 9.5 mg/dL (8.4-10.2); Carbon Dioxide 20 mmol/L (22-29); Chloride 107 mmol/L (96-108); Cholesterol 181 mg/dL (<200); Estimated Glomerular Filt Rate > 60; Glucose Fasting 96 mg/dL (60-99); HDL Cholesterol 72 mg/dL (>40); LDL Cholesterol Calculated 89 mg/dL (<100); Potassium 4.1 mmol/L (3.3-5.1); Sodium 136 mmol/L (135-145); Triglycerides 103 mg/dL (<150)
[2025-01-14 10:38] LABS: Vitamin D 25-OH Total 49.7 ng/mL (>30)
== END 2025-01-14 07:43 | disposition home or self-care (01) ==
LOC: HO.HMGCLDS 07:42
PROVIDERS: PCP Internal Medicine; Visit Provider Internal Medicine
DX: E66.01 Morbid (severe) obesity due to excess calories (principal); I10 Essential (primary) hypertension; E78.00 Pure hypercholesterolemia, unspecified; Z78.0 Asymptomatic menopausal state; C50.911 Malignant neoplasm of unspecified site of right female breast
CPT/HCPCS: 36415; 80048; 80061; 82306; 84450; 84460; 99212

== ENCOUNTER 2025-01-14 08:55 | Outpatient (AMB) | payer MEDICARE, MEDICAID, SELFPAY ==
--- NOTE | 2025-01-14 09:11 | A.OFFVIS_ITS ---
Vital Signs 01/14/25 09:14 Height 5 ft 8 in Weight 266 lb 12.149 oz BMI 40.6 Pulse 88 Intake Visit Reasons: 1wk f/u br bx Intake Note: Patient is seen in office for biopsy RESULTS, following right breast symmetry upper outer quadrant. Pt c/o: admits to sore, bruise and feels some pulling in the bx area Goldbeater Required: No Accompanied by: Spouse Allergies No Known Allergies Allergy (Verified 01/14/25 09:13) Medication List - Last Reconciled 01/14/25 by Kevin Torres MD bupropion HCl XL 150 mg PO QAM calcium citrate-vitamin D3 315 mg-5 mcg (200 unit) 1 tab PO BID [Celebrate MVI 1 tab PO DAILY] cholecalciferol (vitamin D3) 50 mcg PO DAILY clotrimazole-betamethasone 1-0.05 % 1 appl topical BID 10 days cyclobenzaprine 10 mg PO BEDTIME PRN famotidine 40 mg PO DAILY ferrous fumarate (Ferretts) 325 mg PO DAILY fluoxetine 40 mg PO DAILY fluticasone propionate 50 mcg/actuation 1 spray intranasal DAILY hydrochlorothiazide 12.5 mg PO 3XW PRN levocetirizine 5 mg PO DAILY balcrirrcdal-efx-ifmy-FA-vit K 45 mg iron- 800 mcg-120 mcg (Bariatric Multivitamins) caps PO rivaroxaban (Xarelto) 10 mg PO DAILY rosuvastatin 5 mg PO DAILY semaglutide (weight loss) (Wegovy) 1 mg (0.5 mL) subcut QWEEK trazodone 50 mg PO DAILY zinc gluconate 10 mg PO DAILY HPI Comments Details: 59-year-old female patient presenting with a screening mammogram performed on 11/16/2024 with additional images obtained on 12/23/2023 including ultrasound of the right breast. This revealed a focal asymmetry in the upper outer breast anterior depth persistent with associated architectural distortion on additional imaging projections. No suspicious calcifications or other abnormalities were identified. Targeted Doppler ultrasound revealed a hypoechoic taller than wide irregular solid mass in the 10 o'clock position, 7 cm from the nipple measuring 6 x 3 x 4 mm with posterior shadowing. This was felt to be suspicious for malignancy and ultrasound-guided core biopsy recommended. She is scheduled for an ultrasound-guided core biopsy tomorrow at the [facility]. She denies a previous history of breast problems or breast surgery. Family history is significant for sister developing breast cancer at the age of 63. She underwent radiation therapy and antiestrogen therapy. She denies any other family members with breast or ovarian cancer. Her sister did not undergo genetic testing. Patient has a prior history of progesterone use but subsequently developed blood clots therefore the medication was stopped. Her menarche was the age of 12. She is 1 and menopause was at the age of 51. She underwent ultrasound-guided core biopsy of the right breast on 01/05/2025. Pathology revealed invasive carcinoma with ductal and lobular features, grade 2, ER/PA positive, HER2 Nellie negative, Ki-67 high. Pathology results were reviewed with the patient today. [facility] Medical History Umbilical hernia Uterine fibroid Cervical dysplasia Primary osteoarthritis of both knees Pulmonary embolism Seasonal allergies Steatosis, liver History of pulmonary embolism Osteoarthritis Depression Gastric reflux Hiatal hernia Hypertension Hyperlipidemia Surgical History S/P gastric bypass Status post right knee replacement History of right hip replacement H/O bariatric surgery History of cholecystectomy H/O umbilical hernia repair Family History Father Mental health disorder Sister Lymph node cancer Mental health disorder Thyroid disorder Mother Lymph node cancer Mental health disorder Mother Tumor Brother Substance use disorder Social History Household Members: Spouse Housing: Apartment Are you a primary home care manager to a significant other at home: No Do you presently have visiting nurse or other home services: No Alcohol intake: current Alcohol intake frequency: holidays/special occasions only Patient Tobacco Use Status: Never used Tobacco e-Cigarette/Vaping Use: Never Used service: No Current occupational status: unemployed and disabled Gender identity: Female Cognitive needs: No Hearing needs: No Vision needs: Yes Female Reproductive History Menstrual Age of Menarche: 12 Review of Systems Const All systems reviewed & are unremarkable except as noted in HPI and below Physical Exam Vital Signs: Last Vital Signs Pulse 88 01/14/25 09:14 BMI result Body Mass Index 40.6 Const General: cooperative and no acute distress Nutritional Appearance: well nourished Orientation/consciousness: patient oriented x3 Limitations: no limitations HEENT Head: Yes normocephalic and Yes atraumatic Ears: hearing grossly normal bilaterally Chest Other: Large pendulous breasts bilaterally Left breast: No skin change, no nipple retraction, no nipple discharge, no palpable mass, no enlarged lymph nodes. Right breast: No skin change, no nipple retraction, no nipple discharge, no palpable mass, no enlarged lymph nodes Resp Effort & Inspection: normal respiratory effort, no audible wheezes, no cough and no respiratory distress Cardio Jugular venous distension: no JVD GI Inspection: Yes normal to inspection Skin Other: Warm, dry, no rash Neuro General: patient oriented x3 Extrem General: Yes no clubbing, cyanosis or edema Assessment & Plan Assessment & Plan (1) Invasive ductal carcinoma of right breast: Code(s): C50.911 - Malignant neoplasm of unspecified site of right female breast Category: Medical Plan 59-year-old female patient presenting with an architectural distortion noted in the right breast at the 10 o'clock position 7 cm from the nipple. This was felt to be suspicious for malignancy an ultrasound-guided core biopsy recommended. She denies a previous history of breast problems or breast surgery. Her family history is significant for a sister with breast cancer. She underwent an ultrasound-guided core biopsy 1 week ago which revealed invasive carcinoma of the right breast with ductal and lobular features, ER/PA positive, HER2 Nellie negative, Ki-67 high. I reviewed the results detail along with the treatment options. We discussed the role for lumpectomy and sentinel node biopsy as well as radiation therapy and additional adjuvant therapies. She is currently being treated by Dr. Covarrubias for a hematologic disorder. After discussion of the procedure, risks, and alternatives, she consents to a right breast lumpectomy with localizer and right axillary sentinel node biopsy. This will be scheduled as a short-stay surgery. Orders: Orders MM surgical specimen Today C50.911 - Malignant neoplasm of unspecified site of right female breast Coding Level of Care Code Est Pt Level 4 (95959) Diagnoses Invasive ductal carcinoma of right breast C50.911
[2025-01-14 09:14] VITALS: PULSE 88; BMI 40.6
== END 2025-01-14 09:42 | disposition home or self-care (01) ==
PROVIDERS: PCP Internal Medicine; Visit Provider Surgery
DX: C50.911 Malignant neoplasm of unspecified site of right female breast (principal)
CPT/HCPCS: 99214

== ENCOUNTER 2025-01-18 10:29 | Outpatient (REF) | payer MEDICARE, MEDICAID, SELFPAY ==
--- NOTE | ~2025-01-18 | MM_ITS ---
EXAMINATION: MM MAMMOGRAM GUIDED RFID LOCALIZATION BREAST, RIGHT CLINICAL INFORMATION: 10:00 axis spiculated invasive carcinoma with ductal and lobular features. For localization. COMPARISON: 12/23/2024, 01/05/2025. TECHNIQUE NEEDLE LOC: Proper informed consent is obtained from the patient after discussion of the procedure, potential risks and complications, and alternatives including declining the procedure today. Patient was given an opportunity for questions. The patient appeared to understand. The patient consented to the procedure and signed the consent form. GUIDANCE: Digital mammography. APPROACH: Cranio-caudal. TARGET: Butterfly shaped biopsy clip immediately adjacent to distortion. ANESTHESIA: carbonated lidocaine 1%: 3 mL. LOCALIZATION SYSTEM: [employer] LOCallizer Wire-Free Guidance System with 12g needle applicator. RADIOFREQUENCY TAG: ID # [id number] DERMATOTOMY: Single 1 mm skin-balbir dermatotomy performed. RF Tag ID confirmed with LOCalizer Guidance System prior to placement. The skin is prepped and local anesthesia administered. The needle is positioned and RFID tag deployed. Final images demonstrate the LOCalizer RF tag to reside immediately adjacent to the distortion and biopsy clip. The patient tolerated the procedure well and had no immediate complications. Dressing placed and home instructions reviewed. MM/MM RF Tag device RT IMPRESSION: -Status post right breast RFID localization 10:00 spiculated mass. -Final images labeled OR reference. Electronically signed by: Pepe Mcgowan MD 01/18/2025 02:23 PM [facility]ERSON
[2025-01-18] MEDS: Lidocaine HCl 1 % 20 ML VIAL 5 ML SUBCUT (11:39)
[2025-01-18] MEDS: Sodium Bicarbonate 8.4% 50 MEQ/50 ML VIAL SUBCUT (11:40)
== END 2025-01-18 10:30 | disposition home or self-care (01) ==
LOC: HO.MAMMO 10:29
PROVIDERS: PCP Internal Medicine; Visit Provider Surgery
DX: C50.911 Malignant neoplasm of unspecified site of right female breast (principal)
CPT/HCPCS: 19281; C1819; J2003

== ENCOUNTER → 2025-01-18 11:00 | Outpatient (BNV) | payer MEDICARE, MEDICAID, SELFPAY | PROVIDERS: PCP Internal Medicine; Visit Provider Radiology Diagnostic Radiology | DX: C50.411 Malignant neoplasm of upper-outer quadrant of right female breast (principal) | CPT/HCPCS: 19281 ==

== ENCOUNTER 2025-01-24 10:40 | Outpatient (AMB) | payer MEDICARE, MEDICAID, SELFPAY ==
[2025-01-24 12:07] VITALS: BP 100/82; PULSE 88; RESP 16; TEMP 36.8; O2SAT 97; BMI 40.6
--- NOTE | 2025-01-24 12:07 | MHC.PC.OV ---
Vital Signs 01/24/25 12:07 Height 5 ft 8 in Weight 267 lb BMI 40.6 BP 100/82 Blood Pressure Location Lt brachial Position Sitting Respiration 16 Pulse 88 Pulse Source Pulse Oximeter Temp 98.3 F Temp Source Oral Pulse Oximetry (%) 97 Oxygen Delivery Method Room Air Intake Visit Reasons: follow up Intake Note: Pt is here today for her f/u Allergies No Known Allergies Allergy (Verified 01/31/25 01:27) Medication List - Last Reconciled 01/31/25 by Denisha Schwartz MD bupropion HCl XL 150 mg PO QAM calcium citrate-vitamin D3 315 mg-5 mcg (200 unit) 1 tab PO BID cholecalciferol (vitamin D3) 50 mcg PO DAILY clotrimazole-betamethasone 1-0.05 % 1 appl topical BID 10 days cyclobenzaprine 10 mg PO BEDTIME PRN famotidine 40 mg PO DAILY ferrous fumarate (Ferretts) 325 mg PO DAILY fluoxetine 40 mg PO DAILY fluticasone propionate 50 mcg/actuation 1 spray intranasal DAILY hydrochlorothiazide 12.5 mg PO 3XW PRN levocetirizine 5 mg PO DAILY msqaxtvytisr-czl-efnf-FA-vit K 45 mg iron- 800 mcg-120 mcg (Bariatric Multivitamins) caps PO rivaroxaban (Xarelto) 10 mg PO DAILY rosuvastatin 5 mg PO DAILY trazodone 50 mg PO DAILY Wegovy (semaglutide (weight loss)) 1 mg (0.5 mL) subcut QWEEK NS zinc gluconate 10 mg PO DAILY Tobacco use date assessed: 01/24/25 Dental Screening Dental Screen Date: 01/24/25 Did you have a dental visit in the last 12 months?: Yes Did you have a dental problem in the last 6 months where you did not have access to dental care?: No Was dental information given to patient?: Patient has dentist HPI follow up HPI Details 59-year-old lady with history pulmonary embolism currently on Xarelto, osteoarthritis, depression, hypertension, hyperlipidemia, seasonal allergies, morbid obesity status post gastric bypass, here today for follow-up. 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 Currently on we go be to help with weight loss, lost approximately 10 lb since starting it six-month ago. Tolerating medication well. [facility] Medical History Umbilical hernia Uterine fibroid Cervical dysplasia Primary osteoarthritis of both knees Pulmonary embolism Seasonal allergies Steatosis, liver History of pulmonary embolism Osteoarthritis Depression Gastric reflux Hiatal hernia Hypertension Hyperlipidemia Surgical History S/P gastric bypass Status post right knee replacement History of right hip replacement H/O bariatric surgery History of cholecystectomy H/O umbilical hernia repair Family History Father Mental health disorder Sister Lymph node cancer Mental health disorder Thyroid disorder Mother Lymph node cancer Mental health disorder Mother Tumor Brother Substance use disorder Social History Household Members: Spouse Housing: Apartment Are you a primary hearing healthcare practitioner to a significant other at home: No Do you presently have visiting nurse or other home services: No Alcohol intake: current Alcohol intake frequency: holidays/special occasions only Patient Tobacco Use Status: Never used Tobacco e-Cigarette/Vaping Use: Never Used service: No Current occupational status: unemployed and disabled Gender identity: Female Cognitive needs: No Hearing needs: No Vision needs: Yes Female Reproductive History Menstrual Age of Menarche: 12 Questionnaire PHQ-9 Over the last 2 weeks, how often have you been bothered by any of the following problems? 1. Little interest or pleasure in doing things: several days 2. Feeling down, depressed, or hopeless: several days 3. Trouble falling or staying asleep, or sleeping too much: more than half the days 4. Feeling tired or having little energy: more than half the days 5. Poor appetite or overeating: several days 6. Feeling bad about yourself - or that you are a failure or have let yourself or your family down: several days 7. Trouble concentrating on things, such as reading the newspaper or watching television: several days 8. Moving or speaking so slowly that other people could have noticed. Or the opposite - being so fidgety or restless that you have been moving around a lot more than usual: not at all 9. Thoughts that you would be better off or of hurting yourself in some way: not at all Total score: 9 Depression Screening Interpretation: Positive (Currently on fluoxetine and bupropion, followed by therapist and psychiatry) Depression Screening Follow-up: Existing condition, In treatment and Community Mental Health Worker F/U Depression Screening Done: Yes 90540 - PHQ-9 Billing: Yes Source: Developed by Drs. Tye May, Lee Cody and colleagues, with an educational joann from [employer]. Thrive Questionnaire Date Thrive assessed: 01/11/25 I am a: Patient What is your living situation today?: I have a place to live, but I am worried about losing it in the future Within the past 12 months, did the food you bought not last and you didn't have the money to get more?: Sometimes True Within the past 12 months, did you worry whether your food would run out before you got money to buy more?: Often true Do you have trouble paying for medicines?: Yes Do you have trouble getting transportation to medical appointments?: Yes Do you have trouble paying your heating and electricity bill?: Yes Do you have trouble taking care of your child, family member or friend?: No Do you have trouble with day-to-day activities such as bathing, preparing meals, shopping, managing finances, etc.?: Yes Are you currently unemployed and looking for a job?: Yes Are you interested in more education?: No Currently or been in a relationship where the following occur: No concerns reported THRIVE Score: 5 ENDY-7 AMB Questionnaire ENDY-7 Date ENDY - 7 assessed: 04/06/24 Source: Developed by Drs. Tye May, Lee Cody and colleagues, with an educational joann from [employer]. Review of Systems Const Reports no additional complaints Eyes Denies change in vision ENT Reports no additional complaints Card Reports no additional complaints Resp Reports no additional complaints GI Reports no additional complaints Musc Reports no additional complaints Skin/Breast Reports as per HPI Neuro Reports no additional complaints Psych Reports no additional complaints Endo Reports no additional complaints [place]/Lymph Reports no additional complaints Aller/Immun Reports no additional complaints Physical exam (Primary Care) Vital Signs: Last Vital Signs Temp 98.3 F 01/24/25 12:07 Pulse 88 01/24/25 12:07 Resp 16 01/24/25 12:07 BP 100/82 01/24/25 12:07 Pulse Ox 97 01/24/25 12:07 Oxygen Delivery Method Room Air 01/24/25 12:07 BMI result Body Mass Index 40.6 Tobacco/Smoking Status: Tobacco use Status Tobacco use date assessed 01/24/25 01/24/25 12:14 Patient Tobacco Use Status Never used Tobacco 01/24/25 12:14 e-Cigarette/Vaping Use Never Used 01/24/25 12:14 PHQ-9: PHQ-9 Score PHQ-9: Total score 9 01/24/25 12:45 Depression Screening Interpretation: Positive (Currently on fluoxetine and bupropion, followed by therapist and psychiatry) Depression Screening Follow-up: Existing condition, In treatment and Community Mental Health Worker F/U Thrive Assessment: Date of Thrive Assessment Date Thrive assessed 01/11/25 01/24/25 12:14 Currently or been in a relationship where the following occur: No concerns reported Const Other: Obese, Alert oriented x3, ambulatory with normal gait Orientation/consciousness: patient oriented x3 HENMT Mouth: Normal oral and palatal mucosa present and moist mucous membranes Neck Other: Supple, no lymphadenopathy thyroid gland nonpalpable Resp Auscultation: clear to auscultation bilaterally Cardio Other: S1-S2 present regular rate and rhythm GI Other: Obese, soft, nontender with no mass palpated Skin General skin exam: no rashes or lesions noted Neuro General: patient oriented x3, gait normal, tone normal, moves all extremities and no focal motor deficits Extrem General: Yes full ROM, Yes no clubbing, cyanosis or edema and Yes normal gait Psych Appearance: grossly normal and well kempt Mental Status: mental status grossly normal Speech and movement: Normal speech and movement present Affect: normal affect Results Reviewed Results Reviewed: Name: Nadine Clifford Age/Sex: 59/F : 1965 Unit#: [id number] Attend Dr: Denisha Schwartz MD Re01/14/25 Status: DEP REF Location: [facility] Disch: SPEC : [id number] GARRISON: 02 STATUS: COMP REQ : [id number] RECD: 01/14/25 [facility] DR: Denisha Schwartz MD COMP: 01/14/25 ENTERED: 01/14/25 [facility] DR: ORDERED: Met Prof Fast, AST, ALT, Lipid Panel, Vitamin D 25-OH Test Result Flag Reference Sodium 136 135-145 mmol/L Potassium 4.1 3.3-5.1 mmol/L CL 107 96-108 mmol/L CO2 20 L 22-29 mmol/L Gap 13 12-20 BUN 20 H 9-16 mg/dL Creat 0.74 0.5-1.4 mg/dL eGFR > 60 Chronic Kidney Disease: Estimated GFR < 60 mL/min/1.73m2 Severe Kidney Disease: Estimated GFR < 15 mL/min/1.73m2 FBS 96 60-99 mg/dL CA 9.5 8.4-10.2 mg/dL AST (GOT) 40 H 5-31 U/L ALT (GPT) 48 H 0-31 U/L Triglyceride 103 <150 mg/dL Desirable Triglyceride: less than 150 mg/dL Borderline High Triglyceride 150-199 mg/dL High Triglyceride: 200-499 mg/dL Very High Triglyceride: greater than or equal to 5OO mg/dL Cholesterol 181 <200 mg/dL Desirable Cholesterol: less than 200 mg/dL Borderline High Cholesterol: 200-239 mg/dL High Cholesterol: greater than 239 mg/dL LDL Calculated 89 <100 mg/dL Desirable LDL: less than 100 mg/dL Near Optimal/Above Optimal LDL: 110-129 mg/dL Borderline High LDL: 130-159 mg/dL High LDL: 160-189 mg/dL Very High LDL: greater than or equal to 190 mg/dL HDL 72 >40 mg/dL Desirable HDL: greater than 40 mg/dL Note: This HDL assay may give artificially low results in patients with liver disease. Vit D 25-OH Tot 49.7 >30 ng/mL Health Based Reference Values* < 20 ng/mL Deficient 20-30 ng/mL Insufficient > 30 ng/mL Sufficient Coding Level of Care Code Est Pt Level 4 (41050) Complex EM visit Add On G2211 Diagnoses Pure hypercholesterolemia E78.00 Hyperlipidemia type: pure hypercholesterolemia Essential hypertension I10 Hypertension type: essential hypertension Morbid obesity E66.01 Additional Codes PHQ-9 - 19565 - PHQ-9 Billing: Yes ([id number]) Assessment & Plan Assessment & Plan (1) Hyperlipidemia: Code(s): E78.5 - Hyperlipidemia, unspecified Category: Medical Qualifiers: Hyperlipidemia type: pure hypercholesterolemia Qualified Code(s): E78.00 - Pure hypercholesterolemia, unspecified Plan: Continue rosuvastatin 5 mg daily (2) Hypertension: Code(s): I10 - Essential (primary) hypertension Category: Medical Qualifiers: Hypertension type: essential hypertension Qualified Code(s): I10 - Essential (primary) hypertension Plan: Blood pressure at goal of less than 130/80. Continue with current medication. Reinforced importance of following a low sodium diet, getting regular exercise, and lowering stress levels. (3) Morbid obesity: Code(s): E66.01 - Morbid (severe) obesity due to excess calories Category: Medical Plan: Continue on Wegovy 1 mg subcutaneously given once a week, cautioned possible side effects of medication Orders: Orders Hemoglobin A1c 05/24/25 E66.01 - Morbid (severe) obesity due to excess calories, E78.00 - Pure hypercholesterolemia, unspecified, I10 - Essential (primary) hypertension Lipid Panel 05/24/25 E66.01 - Morbid (severe) obesity due to excess calories, E78.00 - Pure hypercholesterolemia, unspecified, I10 - Essential (primary) hypertension Alanine Aminotransferase 05/24/25 E66.01 - Morbid (severe) obesity due to excess calories, E78.00 - Pure hypercholesterolemia, unspecified, I10 - Essential (primary) hypertension Aspartate Amino Transferase 05/24/25 E66.01 - Morbid (severe) obesity due to excess calories, E78.00 - Pure hypercholesterolemia, unspecified, I10 - Essential (primary) hypertension TSH reflex Free T4 05/24/25 E66.01 - Morbid (severe) obesity due to excess calories, E78.00 - Pure hypercholesterolemia, unspecified, I10 - Essential (primary) hypertension Medications: Changed From semaglutide (weight loss) (Wegovy) 1 mg (0.5 mL) subcut QWEEK 2 mL 2RF To Wegovy (semaglutide (weight loss)) 1 mg (0.5 mL) subcut QWEEK 2 mL 3RF NS Refilled hydrochlorothiazide 12.5 mg PO 3XW PRN 30 tabs 0RF Edema
== END 2025-01-24 12:55 | disposition home or self-care (01) ==
PROVIDERS: PCP Internal Medicine; Visit Provider Internal Medicine
DX: E78.00 Pure hypercholesterolemia, unspecified (principal); E66.01 Morbid (severe) obesity due to excess calories; Z68.41 Body mass index [BMI] 40.0-44.9, adult; I10 Essential (primary) hypertension

== ENCOUNTER → 2025-01-24 10:40 | Outpatient (BNVA) | payer MEDICARE, MEDICAID, SELFPAY | PROVIDERS: PCP Internal Medicine; Visit Provider Internal Medicine | DX: E78.00 Pure hypercholesterolemia, unspecified (principal); E66.01 Morbid (severe) obesity due to excess calories; Z68.41 Body mass index [BMI] 40.0-44.9, adult; I10 Essential (primary) hypertension; Z71.3 Dietary counseling and surveillance | CPT/HCPCS: 96127; 99212 ==

== ENCOUNTER 2025-02-03 06:48 | Day surgery (SDC) | payer MEDICARE, MEDICAID, SELFPAY ==
[2025-02-01 12:07] VITALS: BMI 40.4
--- NOTE | 2025-02-02 09:07 | P.CONAN_ITS ---
Documented by User: Linda Bazan NP 02/02/25 09:30 HPI - Anesthesia Eval Consult details Narrative: 59yo F for Right Breast Lumpectomy w/LOCalizer, [place] Node Biopsy Hx PE and RLE DVT - xarelto, [place] [facility] [place] - [place] [facility] [place] last visit 2022 with prn f/u only - no specific tx for PFO PONV Anesthesia Pre-Procedure Meds Is the patient on any of the following meds?: GLP1/DPP4 PMFSH Active Problems Active Problems: All Active Problems Invasive ductal carcinoma of right breast (Acute) Abnormal mammogram of right breast (Acute) Abnormal ultrasound of breast (Acute) Swelling of lower leg (Acute) Morbid obesity (Acute) Atrial septal aneurysm (Acute) PFO (patent foramen ovale) (Acute) S/P gastric bypass (Acute) History of pulmonary embolism (Acute) Hiatal hernia (Acute) Primary osteoarthritis of both knees (Acute) Depression (Acute) Seasonal allergies (Acute) Hypertension (Acute) Hyperlipidemia (Acute) Past Medical History Medical History Umbilical hernia Uterine fibroid Cervical dysplasia Primary osteoarthritis of both knees Pulmonary embolism Seasonal allergies Steatosis, liver History of pulmonary embolism Osteoarthritis Depression Gastric reflux Hiatal hernia Hypertension Hyperlipidemia Family History Family History Father Mental health disorder Sister Lymph node cancer Mental health disorder Thyroid disorder Mother Lymph node cancer Mental health disorder Mother Tumor Brother Substance use disorder Surgical History Surgical History S/P gastric bypass Status post right knee replacement History of right hip replacement H/O bariatric surgery History of cholecystectomy H/O umbilical hernia repair Social History Social History Household Members: Spouse Housing: Apartment Are you a primary home health care case manager to a significant other at home: No Do you presently have visiting nurse or other home services: No Alcohol intake: current Alcohol intake frequency: holidays/special occasions only Patient Tobacco Use Status: Never used Tobacco e-Cigarette/Vaping Use: Never Used Use of substances other than those prescribed or required for medical reasons: No Are you DNR?: No Advance Directives: No Advance Directives Information Provided: Yes Nutrition Risks: No Nutritional Risk Patient : No service: No Current occupational status: unemployed and disabled Gender identity: Female Cognitive needs: No Hearing needs: No Vision needs: Yes Meds Allergies Allergy/AdvReac Type Severity Reaction Status Date / Time No Known Allergies Allergy Verified 01/31/25 01:27 Home Medications ?Medication ?Instructions ?Recorded ?Confirmed ?Last Taken ?Type cholecalciferol (vitamin D3) 50 50 mcg PO DAILY 06/05/22 02/03/25 02/03/25 History mcg (2,000 unit) capsule ferrous fumarate 325 mg (106 mg 325 mg PO DAILY 04/06/24 01/31/25 Unknown History iron) tablet (Ferretts) [id number]-qjirzdan-kcbj 45 mg-folic cap PO 07/23/24 01/31/25 Unknown History acid 800 mcg-vit K 120 mcg capsule (Bariatric Multivitamins) fluoxetine 40 mg capsule 40 mg PO DAILY 09/22/24 02/03/25 02/03/25 History bupropion HCl 150 mg 24 hr tablet, 150 mg PO QAM 11/15/24 02/03/25 02/03/25 History extended release trazodone 50 mg tablet 50 mg PO DAILY 01/04/25 01/31/25 Unknown History Exam Height,Weight and Vital Signs: Height 5 ft 8 in Weight 120.656 kg Pertinent Lab Results Pertinent Lab Results: Laboratory Tests 02/28/24 01/14/25 07:36 07:50 WBC 7.1 Hgb 12.0 Hct 38.5 Plt Count 466 H Sodium 136 Potassium 4.1 Chloride 107 Carbon Dioxide 20 L BUN 20 H Creatinine 0.74 Assessment and Plan Assessment Anesthesia Assessment: Chart Reviewed Documented by User: Bryanna Mendez MD 02/03/25 09:36 [facility] Past Medical History Medical History Umbilical hernia Uterine fibroid Cervical dysplasia Primary osteoarthritis of both knees Pulmonary embolism Seasonal allergies Steatosis, liver History of pulmonary embolism Osteoarthritis Depression Gastric reflux Hiatal hernia Hypertension Hyperlipidemia Functional capacity: independent ambulation Family History Family History Father Mental health disorder Sister Lymph node cancer Mental health disorder Thyroid disorder Mother Lymph node cancer Mental health disorder Mother Tumor Brother Substance use disorder Surgical History Surgical History S/P gastric bypass Status post right knee replacement History of right hip replacement H/O bariatric surgery History of cholecystectomy H/O umbilical hernia repair History of Problems with Anesthesia: No Social History Social History Household Members: Spouse Housing: Apartment Are you a primary home health care case manager to a significant other at home: No Do you presently have visiting nurse or other home services: No Alcohol intake: current Alcohol intake frequency: holidays/special occasions only Patient Tobacco Use Status: Never used Tobacco e-Cigarette/Vaping Use: Never Used Use of substances other than those prescribed or required for medical reasons: No Are you DNR?: No Advance Directives: No Advance Directives Information Provided: Yes Nutrition Risks: No Nutritional Risk Patient : No service: No Current occupational status: unemployed and disabled Gender identity: Female Cognitive needs: No Hearing needs: No Vision needs: Yes Meds Allergies Allergy/AdvReac Type Severity Reaction Status Date / Time No Known Allergies Allergy Verified 01/31/25 01:27 Home Medications ?Medication ?Instructions ?Recorded ?Confirmed ?Last Taken ?Type cholecalciferol (vitamin D3) 50 50 mcg PO DAILY 06/05/22 02/03/25 02/03/25 History mcg (2,000 unit) capsule ferrous fumarate 325 mg (106 mg 325 mg PO DAILY 04/06/24 01/31/25 Unknown History iron) tablet (Ferretts) fzgcqihv-pjqrgoud-zyvo 45 mg-folic cap PO 07/23/24 01/31/25 Unknown History acid 800 mcg-vit K 120 mcg capsule (Bariatric Multivitamins) fluoxetine 40 mg capsule 40 mg PO DAILY 09/22/24 02/03/25 02/03/25 History bupropion HCl 150 mg 24 hr tablet, 150 mg PO QAM 11/15/24 02/03/25 02/03/25 History extended release trazodone 50 mg tablet 50 mg PO DAILY 01/04/25 01/31/25 Unknown History Exam Airway Mallampati Class: II TM Dist: >3cm Neck ROM: Full Loose/Missing/Broken Teeth: No Heart: RRR Lungs: CTA Assessment and Plan Assessment Anesthesia Assessment: Anesthesia Plan Discussed Final Anesthetic Review History of Problems with Anesthesia: No NPO: Yes ASA Class: III Final Preanesthetic Review: Meds/Allgs Chart Reviewed, Consent Obtained/Reviewed and Anes Risks/Benef Reviewed Patient Risk: Intermediate Procedure Risk: Low Anesthetic Plan Anesthetic Plan: GA Disposition: Standard PACU
--- NOTE | ~2025-02-03 | MM_ITS ---
Single right breast specimen radiograph demonstrates the butterfly clip and the tag within the specimen. Electronically signed by: Amaris Christina DO 02/03/2025 12:32 PM EDT
--- NOTE | ~2025-02-03 | NM_ITS ---
EXAMINATION: Right breast lymphoscintigraphy. CLINICAL INDICATION: Right breast invasive ductal lobular cancer. COMPARISON: None. TECHNIQUE: Following explaining right breast lymphoscintigraphy procedure, benefits in risk, a written consent was obtained. 4% lidocaine was applied on the right breast areola 30 minutes before the procedure. The area around the right breast was cleaned and draped in usual sterile manner. 0.5 mCi of technetium 99m tilmanocept was injected in 4 quadrants around the right breast areola and imaging obtained 20 minutes later. FINDINGS: There is normal focal activity around the right breast areola. There is at least 3 lymph nodes seen in the right axilla and thin trail of activity from the right lateral breast to the axillary lymph nodes. NM/NM sentinel node w imaging IMPRESSION: Successful right breast lymphoscintigraphy performed with at least 3 right axillary sentinel nodes visualized. Electronically signed by: Jeffrey Estevez MD 02/03/2025 10:43 AM EDT
[2025-02-03] MEDS: Scopolamine 1.5 MG PATCH.TD.3 TRANSDERMA (07:10)
[2025-02-03] MEDS: Lidocaine HCl 4 % Topical 50 ML SOLUTION 1 APPL TOPICAL (07:11)
[2025-02-03 07:20] VITALS: BMI 39.7
[2025-02-03 07:39] VITALS: BP 121/75; PULSE 90; RESP 16; TEMP 36.3; O2SAT 95
--- NOTE | 2025-02-03 07:58 | MHC.SHP ---
Pre-Procedural Eval Section A - 24 Hr Update-Section A only Date of Service: 02/03/25 The patient is an INPATIENT: No Changes since office visit: Yes Patient answered all questions; No Cold of Flu in the past 2 weeks, No New Medical Problems and No Changes in Medication The patient has been examined within 24 hours of the surgical procedure. The History & Physical has been completed within 30 days and I have reviewed it.: Yes Section B - Complete if H&P > 30 days Chief Complaint: Malignant neoplasm of unspecified site of right Allergies: Allergies Allergy/AdvReac Type Severity Reaction Status Date / Time No Known Allergies Allergy Verified 01/31/25 01:27 Plan Diagnosis/Plan: Unchanged I have reviewed the history and physical and performed a pertinent physical examination on my patient. No changes have occurred unless specified. Time Spent With Patient Time: Total time managing care of this patient today ____ minutes.
--- NOTE | 2025-02-03 08:58 | PC.NURSE ---
remains off unit
[2025-02-03] MEDS: Lactated Ringers 1,000 ML 100 ML IVCONT (09:45)
[2025-02-03 11:50] VITALS: BP 159/86; PULSE 90; RESP 18; TEMP 36.4; O2SAT 98
[2025-02-03 11:55] VITALS: BP 174/71; PULSE 88; RESP 18; O2SAT 98
[2025-02-03 12:00] VITALS: BP 165/73; PULSE 88; RESP 18; O2SAT 98
[2025-02-03 12:05] VITALS: BP 156/73; PULSE 79; RESP 18; O2SAT 98
[2025-02-03 12:20] VITALS: BP 149/64; PULSE 79; RESP 18; TEMP 36.3; O2SAT 98
--- NOTE | 2025-02-03 12:59 | W.PM.OPN ---
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 Two sentinel nodes were identified. Specimen: Right breast lumpectomy, right axillary sentinel node biopsy x2 Estimated blood loss: 10 mL Complications: None Procedure details: Patient was brought to the OR and placed in a supine position. After administering general anesthesia the patient's right breast was prepped with ChloraPrep and draped in a sterile fashion. A surgical time-out was called the consent confirmed. Patient received preoperative antibiotics and Venodyne boots were in place. The localizer was used to identify the marking clip location. Local anesthesia was then infiltrated in a radial fashion over the marking clip. Incision was then made with a scalpel and carried down through subcutaneous tissue. Superior and inferior skin flaps were then created. Dissection was begun from the inferior margin, superior margin, medial margin in lateral margin followed by posterior margin and the specimen removed. Specimen x-ray confirmed marking clip within the specimen. Gross pathology revealed adequate margins. Hemoclips were placed in the biopsy cavity. Deep breast tissue was closed using interrupted 3-0 Polysorb sutures. Superficial breast tissue and dermis were reapproximated using interrupted 3-0 Polysorb sutures. Skin was then closed using a running subcuticular 4-0 Polysorb suture. Attention was then directed to the axilla the right side. The gamma probe was used to identify an area of increased activity. A curvilinear incision was made at the lower end of the axilla and carried out through subcutaneous tissue, past clavipectoral fascia into the axillary fat pad. Using the gamma probe as a guide an area of increased activity was identified and grasped with an Allis clamp. An enlarged lymph node was identified at this location. This was dissected free from the surrounding axillary tissue using electrocautery. Counts of 2700 were identified in this sentinel node 1. A 2nd node with radio activity was also identified and excised and sent as sentinel node 2. No additional radio activity was identified and no palpable nodes were noted within the axilla. Wounds were irrigated with saline solution and suctioned dry. Clavipectoral fascia was reapproximated using interrupted 3-0 Polysorb sutures. Dermis was reapproximated using interrupted 3-0 Polysorb sutures. Skin was then closed using a running subcuticular 4-0 Polysorb suture. Sterile dressings consisting of Steri-Strips, 4 x 4 gauze and Tegaderm were then applied to both incisions. The patient tolerated the procedure well. Sponge, instrument, and needle counts reported as correct. The patient was transferred to PACU in stable condition. Breast Jasper Node Biopsy Substrate(s) used for sentinel node biopsy in the non-neoadjuvant setting: Radiotracer Substrate(s) used for sentinel node biopsy in the neoadjuvant setting: N/A All colored nodes or non-colored nodes present at the end of a dye filled lymphatic channel were removed, if dye was used as the substrate for localization: N/A All significantly radioactive nodes were removed, if radionuclide was used as the substrate for localization: Yes All palpably suspicious nodes were removed, if present: Yes If clips were placed in pathology-involved nodes, those nodes were identified and removed: N/A Procedure performed with curative intent?: Yes General Surg. - Synoptic Notes Breast Jasper Node Biopsy Substrate(s) used for sentinel node biopsy in the non-neoadjuvant setting: Radiotracer Substrate(s) used for sentinel node biopsy in the neoadjuvant setting: N/A All colored nodes or non-colored nodes present at the end of a dye filled lymphatic channel were removed, if dye was used as the substrate for localization: N/A All significantly radioactive nodes were removed, if radionuclide was used as the substrate for localization: Yes All palpably suspicious nodes were removed, if present: Yes If clips were placed in pathology-involved nodes, those nodes were identified and removed: N/A Procedure performed with curative intent?: Yes
== END 2025-02-03 13:19 | disposition home or self-care (01) ==
PROVIDERS: PCP Internal Medicine; Visit Provider Surgery
PROC: (CPT 19301; principal; 2025-02-03 10:30)
PROC: (CPT 19301; 2025-02-03 10:30)
DX: C50.411 Malignant neoplasm of upper-outer quadrant of right female breast (principal); Z17.0 Estrogen receptor positive status [ER+]; Z17.21 Progesterone receptor positive status; Z17.32 Human epidermal growth factor receptor 2 negative status; Z80.3 Family history of malignant neoplasm of breast; Z86.711 Personal history of pulmonary embolism; D25.9 Leiomyoma of uterus, unspecified; K76.0 Fatty (change of) liver, not elsewhere classified; I10 Essential (primary) hypertension; J30.2 Other seasonal allergic rhinitis; E78.5 Hyperlipidemia, unspecified; F32.A Depression, unspecified; Z79.01 Long term (current) use of anticoagulants; Z79.51 Long term (current) use of inhaled steroids; Z79.85 Long-term (current) use of injectable non-insulin antidiabetic drugs; Z79.899 Other long term (current) drug therapy; Z98.890 Other specified postprocedural states; Z98.84 Bariatric surgery status; Z90.49 Acquired absence of other specified parts of digestive tract
CPT/HCPCS: 19301; 38525; 38900; 78195; 88305; 88307; 88329; 88342; A9520; C1889; J0131; J0665; J0690; J1100; J2003; J2250; J2405; J2704; J3010

== ENCOUNTER → 2025-02-03 06:48 | Outpatient (BNV) | payer MEDICARE, MEDICAID, SELFPAY | PROVIDERS: PCP Internal Medicine; Visit Provider Surgery | DX: C50.911 Malignant neoplasm of unspecified site of right female breast (principal) | CPT/HCPCS: 19301; 38525; 38900 ==

== ENCOUNTER → 2025-02-03 07:43 | Outpatient (BNV) | payer MEDICARE, MEDICAID, SELFPAY | PROVIDERS: PCP Internal Medicine; Visit Provider Radiology Diagnostic Radiology | DX: C50.411 Malignant neoplasm of upper-outer quadrant of right female breast (principal) | CPT/HCPCS: 78195 ==

== ENCOUNTER 2025-02-15 10:52 | Outpatient (AMB) | payer MEDICARE, MEDICAID, SELFPAY ==
--- NOTE | 2025-02-15 11:04 | A.OFFVIS_ITS ---
Vital Signs 3 02/15/25 11:17 Height 5 ft 9 in Weight 268 lb BMI 39.6 Respiration 18 Intake Visit Reasons: S/P Rt. brst lump. & SN bx gentic results *HERE* Intake Note: Patient is seen in office for post op assessment post right breast lumpectomy & genetic testing results. 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 Required: No Accompanied by: Spouse Allergies No Known Allergies Allergy (Verified 02/15/25 11:16) Medication List - Last Reconciled 02/15/25 by Kevin Torres MD bupropion HCl XL 150 mg PO QAM calcium citrate-vitamin D3 315 mg-5 mcg (200 unit) 1 tab PO BID cholecalciferol (vitamin D3) 50 mcg PO DAILY clotrimazole-betamethasone 1-0.05 % 1 appl topical BID 10 days cyclobenzaprine 10 mg PO BEDTIME PRN famotidine 40 mg PO DAILY ferrous fumarate (Ferretts) 325 mg PO DAILY fluoxetine 40 mg PO DAILY fluticasone propionate 50 mcg/actuation 1 spray intranasal DAILY hydrochlorothiazide 12.5 mg PO 3XW PRN levocetirizine 5 mg PO DAILY zjhhskydguuj-chl-licx-FA-vit K 45 mg iron- 800 mcg-120 mcg (Bariatric Multivitamins) caps PO oxycodone 5 mg PO Q6H PRN rivaroxaban (Xarelto) 10 mg PO DAILY rosuvastatin 5 mg PO DAILY trazodone 50 mg PO DAILY Wegovy (semaglutide (weight loss)) 1 mg (0.5 mL) subcut QWEEK NS zinc gluconate 10 mg PO DAILY HPI Comments Details: 59-year-old female patient presenting with a screening mammogram performed on 11/16/2024 with additional images obtained on 12/23/2023 including ultrasound of the right breast. This revealed a focal asymmetry in the upper outer breast anterior depth persistent with associated architectural distortion on additional imaging projections. No suspicious calcifications or other abnormalities were identified. Targeted Doppler ultrasound revealed a hypoechoic taller than wide irregular solid mass in the 10 o'clock position, 7 cm from the nipple measuring 6 x 3 x 4 mm with posterior shadowing. This was felt to be suspicious for malignancy and ultrasound-guided core biopsy recommended. She is scheduled for an ultrasound-guided core biopsy tomorrow at the [facility]. She denies a previous history of breast problems or breast surgery. Family history is significant for sister developing breast cancer at the age of 63. She underwent radiation therapy and antiestrogen therapy. She denies any other family members with breast or ovarian cancer. Her sister did not undergo genetic testing. Patient has a prior history of progesterone use but subsequently developed blood clots therefore the medication was stopped. Her menarche was the age of 12. She is 1 and menopause was at the age of 51. She underwent ultrasound-guided core biopsy of the right breast on 01/05/2025. Pathology revealed invasive carcinoma with ductal and lobular features, grade 2, ER/HI positive, HER2 Nellie negative, Ki-67 high. She subsequently underwent a right breast lumpectomy with localizer and sentinel node biopsy on 02/03/2025. She tolerated the procedure well but does report some soreness in the axilla following the surgery. Pathology revealed invasive ductal carcinoma, grade 2, 1.2 cm in size with negative margins. Two sentinel lymph nodes were negative for metastatic carcinoma. AJCC stage 8th addition pT1c N0 (sn), ER positive, HI positive, HER2 Nellie negative, high proliferation Ki-67. Genetic testing revealed no clinically significant mutations and no mutations of unknown significance. Copy of the report was provided to the patient. She is scheduled to be evaluated by Dr. Covarrubias on 03/01/2025. [facility] Medical History Umbilical hernia Uterine fibroid Cervical dysplasia Primary osteoarthritis of both knees Pulmonary embolism Seasonal allergies Steatosis, liver History of pulmonary embolism Osteoarthritis Depression Gastric reflux Hiatal hernia Hypertension Hyperlipidemia Surgical History History of lumpectomy of right breast (02/03/25) S/P gastric bypass Status post right knee replacement History of right hip replacement H/O bariatric surgery History of cholecystectomy H/O umbilical hernia repair Family History Father Mental health disorder Sister Lymph node cancer Mental health disorder Thyroid disorder Mother Lymph node cancer Mental health disorder Mother Tumor Brother Substance use disorder Social History Household Members: Spouse Housing: Apartment Are you a primary manager respiratory care to a significant other at home: No Do you presently have visiting nurse or other home services: No Alcohol intake: current Alcohol intake frequency: holidays/special occasions only Patient Tobacco Use Status: Never used Tobacco e-Cigarette/Vaping Use: Never Used service: No Current occupational status: unemployed and disabled Gender identity: Female Cognitive needs: No Hearing needs: No Vision needs: Yes Female Reproductive History Menstrual Age of Menarche: 12 Review of Systems Const All systems reviewed & are unremarkable except as noted in HPI and below Physical Exam Vital Signs: Last Vital Signs Resp 18 02/15/25 11:17 BMI result Body Mass Index 39.6 Const General: cooperative and no acute distress Nutritional Appearance: well nourished Orientation/consciousness: patient oriented x3 Limitations: no limitations HEENT Head: Yes normocephalic and Yes atraumatic Ears: hearing grossly normal bilaterally Chest Other: Right breast: Incision in the upper outer quadrant is clean, dry, and intact without seroma or hematoma. Right axillary incision also clean and intact without evidence of infection or seroma. Chest/axillae images: 2 1. 2. Resp Effort & Inspection: normal respiratory effort, no audible wheezes, no cough and no respiratory distress Cardio Jugular venous distension: no JVD GI Inspection: Yes normal to inspection Skin Other: Warm, dry, no rash Neuro General: patient oriented x3 Extrem General: Yes no clubbing, cyanosis or edema Assessment & Plan Assessment & Plan (1) Invasive ductal carcinoma of right breast: Code(s): C50.911 - Malignant neoplasm of unspecified site of right female breast Category: Medical Plan 59-year-old female patient presenting with an architectural distortion noted in the right breast at the 10 o'clock position 7 cm from the nipple. This was felt to be suspicious for malignancy an ultrasound-guided core biopsy recommended. She denies a previous history of breast problems or breast surgery. Her family history is significant for a sister with breast cancer. She underwent an ultrasound-guided core biopsy 1 week ago which revealed invasive carcinoma of the right breast with ductal and lobular features, ER/HI positive, HER2 Nellie negative, Ki-67 high. She is now 1 week status post right breast lumpectomy with localizer and right axillary sentinel node biopsy. Pathology confirmed invasive ductal carcinoma, grade 2, 1.2 cm with negative margins, 0 of 2 sentinel lymph nodes with metastatic disease, ER/HI positive, HER2 Nellie negative (pT1c N0 (sn)). She will follow up with Dr. Covarrubias on 03/01/2025. I asked her to return in approximately 1 month for follow-up examination. Coding Level of Care Code Global (05045) Diagnoses Invasive ductal carcinoma of right breast C50.911
[2025-02-15 11:17] VITALS: RESP 18; BMI 39.6
== END 2025-02-15 11:36 | disposition home or self-care (01) ==
LOC: HO.HGS 10:53
PROVIDERS: PCP Internal Medicine; Visit Provider Surgery
DX: C50.911 Malignant neoplasm of unspecified site of right female breast (principal)
CPT/HCPCS: 99024

== ENCOUNTER → 2025-02-15 10:52 | Outpatient (BNVA) | payer MEDICARE, MEDICAID, SELFPAY | PROVIDERS: PCP Internal Medicine; Visit Provider Surgery | DX: C50.411 Malignant neoplasm of upper-outer quadrant of right female breast (principal) | CPT/HCPCS: 99212 ==

== ENCOUNTER 2025-02-25 09:27 | Outpatient (REF) | payer MEDICARE, MEDICAID, SELFPAY ==
[2025-02-25 13:26] LABS: MANUAL DIFF FLAG NO
[2025-02-25 13:38] LABS: Basophils Percent Auto 0.3 % (0-2); Eosinophils Absolute Auto 0.3 X10*3/uL (0.0-0.4); Eosinophils Percent Auto 4.6 % (0-4); Hematocrit 42.7 % (37.0-47.0); Hemoglobin 13.8 g/dl (12.0-16.0); Imm Gran Abs Auto 0.02 X10*3/uL (0.00-0.03); Imm Gran Pct Auto 0.3 % (0.0-0.4); Lymphocytes Absolute Auto 1.8 X10*3/uL (1.2-4.9); Mean Corpuscular HGB Conc 32.3 g/dl (31.0-35.0); Mean Corpuscular Hemoglobin 28.8 pg (27.0-33.0); Mean Platelet Volume 8.9 fL (9.4-12.3); Monocytes Absolute Auto 0.5 X10*3/uL (0.1-1.2); Monocytes Percent Auto 7.5 % (2-11); Neutrophils Absolute Auto 4.2 x10*3/uL (2.0-8.3); Neutrophils Percent Auto 61.3 % (45-73); Platelet Count 373 X10*3/uL (160-400); Red Cell Distribution Width 14.6 % (11.0-16.0); White Blood Count 6.8 X10*3/uL (4.8-10.8)
[2025-02-25 13:48] LABS: D Dimer High Sensitivity 192 NG/ML
[2025-02-25 14:28] LABS: Alanine Aminotransferase 27 U/L (0-31); Albumin Level 4.1 g/dL (3.5-5.0); Alkaline Phosphatase 117 U/L (39-117); Anion Gap 14 (12-20); Aspartate Amino Transferase 37 U/L (5-31); Bilirubin Total 0.7 mg/dL (0.0-1.0); Blood Urea Nitrogen 16 mg/dL (9-16); Calcium 9.3 mg/dL (8.4-10.2); Carbon Dioxide 23 mmol/L (22-29); Chloride 110 mmol/L (96-108); Estimated Glomerular Filt Rate > 60; Glucose Random 66 mg/dL (60-115); Potassium 3.9 mmol/L (3.3-5.1); Sodium 143 mmol/L (135-145); Total Protein 6.7 g/dL (6.5-8.0)
== END 2025-02-25 09:28 | disposition home or self-care (01) ==
LOC: HO.HMGCLDS 09:27
PROVIDERS: PCP Internal Medicine; Visit Provider Internal Medicine Medical Oncology
DX: Z86.711 Personal history of pulmonary embolism (principal)
CPT/HCPCS: 36415; 80053; 85025; 85379

== ENCOUNTER 2025-03-22 10:44 | Outpatient (AMB) | payer MEDICARE, MEDICAID, SELFPAY ==
--- NOTE | 2025-03-22 10:49 | MHC.OFFVIS ---
Vital Signs 03/22/25 11:03 Height 5 ft 8 in Weight 268 lb BMI 40.7 BP 175/103 H Blood Pressure Location Lt brachial Position Sitting Pulse 94 Intake Visit Reasons: 1 mth follow up Rt. brst lump SN bx Intake Note: Patient is seen in office for one month post right breast lumpectomy. 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 This revealed a focal asymmetry in the upper outer breast anterior depth persistent with associated architectural distortion on additional imaging projections. No suspicious calcifications or other abnormalities were identified. Targeted Doppler ultrasound revealed a hypoechoic taller than wide irregular solid mass in the 10 o'clock position, 7 cm from the nipple measuring 6 x 3 x 4 mm with posterior shadowing. This was felt to be suspicious for malignancy and ultrasound-guided core biopsy recommended. She is scheduled for an ultrasound-guided core biopsy tomorrow at the [facility]. She denies a previous history of breast problems or breast surgery. Family history is significant for sister developing breast cancer at the age of 63. She underwent radiation therapy and antiestrogen therapy. She denies any other family members with breast or ovarian cancer. Her sister did not undergo genetic testing. Patient has a prior history of progesterone use but subsequently developed blood clots therefore the medication was stopped. Her menarche was the age of 12. She is 1 and menopause was at the age of 51. She underwent ultrasound-guided core biopsy of the right breast on 01/05/2025. Pathology revealed invasive carcinoma with ductal and lobular features, grade 2, ER/OH positive, HER2 Nellie negative, Ki-67 high. She subsequently underwent a right breast lumpectomy with localizer and sentinel node biopsy on 02/03/2025. She tolerated the procedure well but does report some soreness in the axilla following the surgery. Pathology revealed invasive ductal carcinoma, grade 2, 1.2 cm in size with negative margins. Two sentinel lymph nodes were negative for metastatic carcinoma. AJCC stage 8th addition pT1c N0 (sn), ER positive, OH positive, HER2 Nellie negative, high proliferation Ki-67. Genetic testing revealed no clinically significant mutations and no mutations of unknown significance. Oncotype testing revealed a score of 18. She was scheduled to see radiation oncology at [facility]. She denies any new breast symptoms since her last visit. [facility] Medical History Umbilical hernia Uterine fibroid Cervical dysplasia Primary osteoarthritis of both knees Pulmonary embolism Seasonal allergies Steatosis, liver History of pulmonary embolism Osteoarthritis Depression Gastric reflux Hiatal hernia Hypertension Hyperlipidemia Surgical History History of lumpectomy of right breast (02/03/25) S/P gastric bypass Status post right knee replacement History of right hip replacement H/O bariatric surgery History of cholecystectomy H/O umbilical hernia repair Family History Father Mental health disorder Sister Lymph node cancer Mental health disorder Thyroid disorder Mother Lymph node cancer Mental health disorder Mother Tumor Brother Substance use disorder Social History Household Members: Spouse Housing: Apartment Are you a primary wound care specialist to a significant other at home: No Do you presently have visiting nurse or other home services: No Alcohol intake: current Alcohol intake frequency: holidays/special occasions only Patient Tobacco Use Status: Never used Tobacco e-Cigarette/Vaping Use: Never Used service: No Current occupational status: unemployed and disabled Gender identity: Female Cognitive needs: No Hearing needs: No Vision needs: Yes Female Reproductive History Menstrual Age of Menarche: 12 Review of Systems Const All systems reviewed & are unremarkable except as noted in HPI and below Physical Exam Vital Signs: Last Vital Signs Pulse 94 03/22/25 11:03 BP 175/103 H 03/22/25 11:03 BMI result Body Mass Index 40.7 Const General: cooperative and no acute distress Nutritional Appearance: well nourished Orientation/consciousness: patient oriented x3 Limitations: no limitations HEENT Head: Yes normocephalic and Yes atraumatic Ears: hearing grossly normal bilaterally Chest Other: Right breast: Incision in the upper outer quadrant is clean, dry, and intact without seroma or hematoma. Right axillary incision also clean and intact without evidence of infection or seroma. Resp Effort & Inspection: normal respiratory effort, no audible wheezes, no cough and no respiratory distress Cardio Jugular venous distension: no JVD GI Inspection: Yes normal to inspection Skin Other: Warm, dry, no rash Neuro General: patient oriented x3 Extrem General: Yes no clubbing, cyanosis or edema Assessment & Plan Assessment & Plan (1) Invasive ductal carcinoma of right breast: Code(s): C50.911 - Malignant neoplasm of unspecified site of right female breast Category: Medical Plan 60-year-old female patient presenting with an architectural distortion noted in the right breast at the 10 o'clock position 7 cm from the nipple. This was felt to be suspicious for malignancy an ultrasound-guided core biopsy recommended. She denies a previous history of breast problems or breast surgery. Her family history is significant for a sister with breast cancer. She underwent an ultrasound-guided core biopsy which revealed invasive carcinoma of the right breast with ductal and lobular features, ER/OH positive, HER2 Nellie negative, Ki-67 high. She underwent right breast lumpectomy with localizer and right axillary sentinel node biopsy, and the pathology confirmed invasive ductal carcinoma, grade 2, 1.2 cm with negative margins, 0 of 2 sentinel lymph nodes with metastatic disease, ER/OH positive, HER2 Nellie negative (pT1c N0 (sn)). She was evaluated with Dr. Covarrubias and will be seeing radiation oncology at [facility]. Examination today reveals well healed breast and axillary incisions. I recommended she return in approximately 3 months for routine breast examination. She is welcome to call sooner for any new concerns. Coding Level of Care Code Est Pt Level 3 (54125) Diagnoses Invasive ductal carcinoma of right breast C50.911
[2025-03-22 11:03] VITALS: BP 175/103; PULSE 94; BMI 40.7
== END 2025-03-22 11:19 | disposition home or self-care (01) ==
LOC: HO.HGS 10:47
PROVIDERS: PCP Internal Medicine; Visit Provider Surgery
DX: C50.911 Malignant neoplasm of unspecified site of right female breast (principal)
CPT/HCPCS: 99024

== ENCOUNTER → 2025-03-22 10:44 | Outpatient (BNVA) | payer MEDICARE, MEDICAID, SELFPAY | PROVIDERS: PCP Internal Medicine; Visit Provider Surgery | DX: C50.411 Malignant neoplasm of upper-outer quadrant of right female breast (principal) | CPT/HCPCS: 99212 ==

== ENCOUNTER 2025-04-05 09:34 | Outpatient (AMB) | payer MEDICARE, MEDICAID, SELFPAY ==
[2025-04-05 09:37] VITALS: BP 136/82; PULSE 80; TEMP 36.5; O2SAT 95; BMI 40.6
--- NOTE | 2025-04-05 09:37 | MHC.OFFVIS ---
Vital Signs 04/05/25 09:37 Height 5 ft 8 in Weight 267 lb 2 oz BMI 40.6 BP 136/82 Blood Pressure Location Lt brachial Position Sitting Pulse 80 Pulse Source Pulse Oximeter Temp 97.7 F Temp Source Tympanic Pulse Oximetry (%) 95 Oxygen Delivery Method Room Air Intake Visit Reasons: red sore bump at lumpectomy incision site Intake Note: Patient presents follow up for site pussy/sore not sure if because she does sweat alot. Allergies No Known Allergies Allergy (Verified 04/05/25 09:46) HPI Comments Details: Patient presents with concern of a painful bump on her right axillary incision. She underwent right breast lumpectomy with localizer, right axillary sentinel node biopsy on 02/03/25. She had tolerated the procedure well and had been healing well. She reports last week developed pain at the axillary incision site and noticed a red, painful lump with purulent drainage. She therefore called for an appointment for evaluation. She has been putting a bandaid over the area. She reports improvement in the pain without further drainage. She denies fever, chills, nausea, vomiting. She reports she is awaiting CT scan and then will be starting radiation at [facility] 2 weeks following this. [facility] Medical History Umbilical hernia Uterine fibroid Cervical dysplasia Primary osteoarthritis of both knees Pulmonary embolism Seasonal allergies Steatosis, liver History of pulmonary embolism Osteoarthritis Depression Gastric reflux Hiatal hernia Hypertension Hyperlipidemia Surgical History History of lumpectomy of right breast (02/03/25) S/P gastric bypass Status post right knee replacement History of right hip replacement H/O bariatric surgery History of cholecystectomy H/O umbilical hernia repair Family History Father Mental health disorder Sister Lymph node cancer Mental health disorder Thyroid disorder Mother Lymph node cancer Mental health disorder Mother Tumor Brother Substance use disorder Social History Household Members: Spouse Housing: Apartment Are you a primary child day care teacher to a significant other at home: No Do you presently have visiting nurse or other home services: No Alcohol intake: current Alcohol intake frequency: holidays/special occasions only Patient Tobacco Use Status: Never used Tobacco e-Cigarette/Vaping Use: Never Used service: No Current occupational status: unemployed and disabled Gender identity: Female Cognitive needs: No Hearing needs: No Vision needs: Yes Female Reproductive History Menstrual Age of Menarche: 12 Review of Systems Const Denies chills and Denies fever(s) GI Denies nausea and Denies vomiting Skin/Breast Reports as per HPI Physical Exam Vital Signs: Last Vital Signs Temp 97.7 F 04/05/25 09:37 Pulse 80 04/05/25 09:37 BP 136/82 04/05/25 09:37 Pulse Ox 95 04/05/25 09:37 Oxygen Delivery Method Room Air 04/05/25 09:37 BMI result Body Mass Index 40.6 Const General: comfortable, no acute distress and alert Orientation/consciousness: patient oriented x3 Chest Other: right axillary incision well healed and well approximated, with mild erythema and small amount of induration centrally, tender to palpation, no drainage noted, no fluctuance, no open wounds right breast lumpectomy site well healed Resp Effort & Inspection: normal respiratory effort Neuro General: patient oriented x3 and moves all extremities Assessment & Plan Assessment & Plan (1) Encounter for postoperative wound check: Code(s): Z48.89 - Encounter for other specified surgical aftercare Category: Medical Plan Patient underwent right breast lumpectomy with localizer, right axillary sentinel node biopsy on 02/03/25 now presenting with c/o drainage, redness and pain at right axillary incision site. Very mild erythema and induration of incision. Will treat with keflex x 5 days. Encouraged good hygiene. Follow up in office in 1 week for wound check. Can call and return sooner if develops worsening symptoms or new concerns. All questions answered. Medications: New cephalexin 500 mg PO BID 10 caps 0RF Coding Level of Care Code Global (20812) Diagnoses Encounter for postoperative wound check Z48.89
== END 2025-04-05 09:58 | disposition home or self-care (01) ==
LOC: HO.HGS 09:35
PROVIDERS: PCP Internal Medicine; Visit Provider Physician Assistant Surgical
DX: K64.9 Unspecified hemorrhoids (principal)
CPT/HCPCS: 46600; 99024; 99213

== ENCOUNTER → 2025-04-05 09:34 | Outpatient (BNVA) | payer MEDICARE, MEDICAID, SELFPAY | PROVIDERS: PCP Internal Medicine; Visit Provider Physician Assistant Surgical | DX: Z48.816 Encounter for surgical aftercare following surgery on the genitourinary system (principal); Z98.890 Other specified postprocedural states | CPT/HCPCS: 46600; 99212 ==

== ENCOUNTER 2025-04-12 08:51 | Outpatient (AMB) | payer MEDICARE, MEDICAID, SELFPAY ==
--- NOTE | 2025-04-12 08:53 | MHC.OFFVIS ---
Vital Signs 04/12/25 09:06 Height 5 ft 8 in Weight 261 lb 8 oz BMI 39.8 BP 189/110 H Blood Pressure Location Lt brachial Position Sitting Pulse 104 H Intake Visit Reasons: 1wk fuv red sore bump at lumpectomy incision site Intake Note: Patient is seen in office for one week follow up/wound check, post right breast lumpectomy. Pt c/o: denies any concerns, no longer has discharge, is all done with antibiotics, is schedule for a bone density today and awaiting radiation dates Fan Blade Truer Required: No Braille Translator: Braille Translator Present (Arti DAWSON) Accompanied by: Self / Same As Patient Allergies No Known Allergies Allergy (Verified 04/05/25 09:46) HPI HPI 1wk fuv red sore bump at lumpectomy incision site: Details: Patient reports improvement since last visit. States she completed the antibiotics today, tolerated them well. She is no longer having discharge from the incision site, she denies any pain to the site. Denies fever chills. She reports she was having a bone density scan today and is waiting on a CT scan at [facility] before she can start radiation therapy [facility] Medical History Umbilical hernia Uterine fibroid Cervical dysplasia Primary osteoarthritis of both knees Pulmonary embolism Seasonal allergies Steatosis, liver History of pulmonary embolism Osteoarthritis Depression Gastric reflux Hiatal hernia Hypertension Hyperlipidemia Surgical History History of lumpectomy of right breast (02/03/25) S/P gastric bypass Status post right knee replacement History of right hip replacement H/O bariatric surgery History of cholecystectomy H/O umbilical hernia repair Family History Father Mental health disorder Sister Lymph node cancer Mental health disorder Thyroid disorder Mother Lymph node cancer Mental health disorder Mother Tumor Brother Substance use disorder Social History Household Members: Spouse Housing: Apartment Are you a primary healthcare market consultant to a significant other at home: No Do you presently have visiting nurse or other home services: No Alcohol intake: current Alcohol intake frequency: holidays/special occasions only Patient Tobacco Use Status: Never used Tobacco e-Cigarette/Vaping Use: Never Used service: No Current occupational status: unemployed and disabled Gender identity: Female Cognitive needs: No Hearing needs: No Vision needs: Yes Female Reproductive History Menstrual Age of Menarche: 12 Review of Systems Const All systems reviewed & are unremarkable except as noted in HPI and below Physical Exam Const General: comfortable and no acute distress Orientation/consciousness: patient oriented x3 Resp Effort & Inspection: normal respiratory effort and able to speak in complete sentences Skin Other: Axillary incision site visualized, incision is intact. No evidence of fluid collection, no surrounding erythema. no pain to palpation. No discharge Neuro General: patient oriented x3 Assessment & Plan Assessment & Plan (1) Encounter for postoperative wound check: Code(s): Z48.89 - Encounter for other specified surgical aftercare Category: Medical Plan 60-year-old female s/p right breast lumpectomy with localizer and right axillary sentinel node dissection on 02/03/2025 presenting to the office for follow-up wound check. Patient is improving, completed course of antibiotics today. She has no further concerns, and is no longer experiencing any discharge or pain associated with the right axillary incision site. Incision site is clean and intact no surrounding erythema, no further discharge and no evidence of fluid collection. No further concern for infection at this time. Patient is afebrile. Patient will have bone mineral density scan today, and is waiting for a CT scan from [facility] so she can begin radiation therapy. She has 3 month follow-up scheduled with Dr. Torres in the office. Patient can return as needed sooner for any concerns prior to her follow-up appointment Coding Level of Care Code Global (42368) Diagnoses Encounter for postoperative wound check Z48.89
[2025-04-12 09:06] VITALS: BP 189/110; PULSE 104; BMI 39.8
--- OUTSIDE RECORDS SUMMARY | 2025-04-12 09:14 | XMS_ITS ---
Author Organization [facility] Address [address] [place] [address] Care Team Providers Care Medical Laboratory Technical Officer Name Role Phone Lana HUERTA, Denisha Primary Care Provider Tye Rachel [phone] REASON FOR VISIT patient presents today for colon screening Medications Medication SIG (Take, Route, Frequency, Duration) Notes Start Date End Date Status Fiber - as directed Orally prn Active Vitamin D3 Gummies Adult Active Pantoprazole Sodium 40 MG 1 tablet Orall y Once a day Active Xarelto 10 MG 1 tablet with food Orally Once a day Active Rosuvastatin Calcium 5 MG 1 tablet Orall y Once a day Active Fluoxetine 30 one tablet orally once a day Active hydroCHLOROthiazide 12.5 MG 1 capsule Or ally three times a week For edema Active Multi Vitamin/Minerals Orally Active buPROPion HBr ER 174 MG 1 tablet in the morning Orally Once a day Active Calcium Citrate + D3 315-6.25 MG-MCG 1 tablet Orally Twice a day Active Famotidine 40 MG 1 tablet Orally Once a day Active oxyCODONE HCl 5 MG 1 tablet as needed Orally every 6 hrs Active Cholecalciferol 50 MCG (2000 UT) 1 tablet Orally Once a day Active Cyclobenzaprine HCl 10 MG 1 tablet at be dtime as needed Orally Once a day Active Clotrimazole 1 % 1 application Externally Twice a day Active FLUoxetine HCl 40 MG 1 capsule Orally Once a day Active Ferretts 325 (106 Fe) MG 1 tablet Orally Three times a Week Active Fluticasone Propionate (Inhal) 50 MCG/ACT 1 puff Inhalation Twice a day Active traZODone HCl 50 MG 1 tablet at bedtime as needed Orally Once a day Active Levocetirizine Dihydrochloride 5 MG 1 tablet in the evening Orally Once a day Active Wegovy 1 MG/0.5ML 0.5 mL Subcutaneous Active Problems Problem Type SNOMED Code ICD Code Onset Dates Problem Status W/U Status Risk Notes Problem Dysphagia (71054554) Dysphagia (R13.10) Active confirmed Problem Colon cancer screening (Z12.11) Active confirmed Vital Signs Blood pressure systolic 111 mm Hg 04/05/20 25 Blood pressure diastolic 77 mm Hg 025 Height 66 in 04/05/2025 Weight 266 lbs 04/05/2025 BMI 42.93 kg/m2 04/05/2025 Procedures Procedure Date Ordered Date Performed Result Body Sit e UPPER GI ENDOSCOPY BALLOOON DILATION OF ESOPH 04/05/2025 N/A COLONOSCOPY 04/05/2025 N/A Encounters Encounter Location Date Provider Diagnosis [facility] [address] [place] [address] 04/05/2025 Tye Quintanilla Gastroesophageal ref lux disease, esophagitis presence not specified K21.9 ; Dysphagia R13.10 and Colon cancer screening Z12.11 Assessments Encounter Date Diagnosis (ICD Code) Assessment Notes Treatment Notes Treatment Clinical Notes Section Notes 04/05/2025 Gastroesophageal reflux disease, esophagitis presence not specified (ICD-10 - K21.9) Overall, Guero appears well and does not seem to be having any particularly worrisome GI symptoms. I did recommend a follow-up colonoscopy for screening purposes given her last exam being back in 2014. We did review the rationale for this in regard to colon cancer prevention. She was also concerned about her ongoing issues with reflux and occasional dysphagia while on the famotidine. This does not seem particularly worrisome but she will undergo an upper endoscopy on the same day as her colonoscopy. Full consent has been obtained from her for both procedures, including risks of bleeding and perforation. The procedures will be done with monitored anesthesia care. She was given the below instructions regarding adjustment of her medications for the procedure. We did review that if she is found to have esophagitis I would then plan to switch her back to a PPI instead of the H2 arjun. uGero was comfortable with this plan. Thank you again for allowing me to participate in Guero's care. I shall continue to keep you advised of her progress.. 04/05/2025 Dysphagia (ICD-10 - R13.10) Overall, Guero appears well and does not seem to be having any particularly worrisome GI symptoms. I did recommend a follow-up colonoscopy for screening purposes given her last exam being back in 2014. We did review the rationale for this in regard to colon cancer prevention. She was also concerned about her ongoing issues with reflux and occasional dysphagia while on the famotidine. This does not seem particularly worrisome but she will undergo an upper endoscopy on the same day as her colonoscopy. Full consent has been obtained from her for both procedures, including risks of bleeding and perforation. The procedures will be done with monitored anesthesia care. She was given the below instructions regarding adjustment of her medications for the procedure. We did review that if she is found to have esophagitis I would then plan to switch her back to a PPI instead of the H2 arjun. Guero was comfortable with this plan. Thank you again for allowing me to participate in Guero's care. I shall continue to keep you advised of her progress.. 04/05/2025 Colon cancer screening (ICD-10 - Z12.11) Overall, Guero appears well and does not seem to be having any particularly worrisome GI symptoms. I did recommend a follow-up colonoscopy for screening purposes given her last exam being back in 2014. We did review the rationale for this in regard to colon cancer prevention. She was also concerned about her ongoing issues with reflux and occasional dysphagia while on the famotidine. This does not seem particularly worrisome but she will undergo an upper endoscopy on the same day as her colonoscopy. Full consent has been obtained from her for both procedures, including risks of bleeding and perforation. The procedures will be done with monitored anesthesia care. She was given the below instructions regarding adjustment of her medications for the procedure. We did review that if she is found to have esophagitis I would then plan to switch her back to a PPI instead of the H2 arjun. Guero was comfortable with this plan. Thank you again for allowing me to participate in Guero's care. I shall continue to keep you advised of her progress.. Plan Of Treatment Pending Test Test Name Order Date UPPER GI ENDOSCOPY BALLOOON DILATION OF ESOPH 04/05/2025 COLONOSCOPY 04/05/2025 Next Appt Details Provider Name:Tye Quintanilla , 10/14/2025 09:00:00 AM, [address] [place] [address] , [place], [place], [phone], Progress Notes * GUERO CHADOB: 4 (60 yo F)Acc No.[id number]:04/05/2025 Progress Notes Patient:?GUERO CHA Provider:?Tye Quintanilla MD :1965???Age:60 Y???Sex:Female D ate:04/05/2025 Address:[address] [place] [address], [id number] Pcp:Denisha Schwartz MD Subjective: * Chief Complaints: * ???1. Patient presents today for colon screening. * HPI: ???incontinence:? I saw Guero in consultation today in regard to further evaluation of her chronic Gastrosoft reflux, dysphagia, and need for colorectal cancer screening. I last saw Guero in 2019, at which time she underwent an upper endoscopy. This revealed her small hiatal hernia and previous surgery for the gastric bypass. There was no sign of any esophagitis, esophageal stricture, Hussein's esophagus, nor eosinophilic esophagitis. The previous gastric bypass anastomosis appeared normal. She had been on a PPI at that time but has only been using famotidine recently. For the most part the famotidine works well although she still has intermittent symptoms of heartburn and reflux. She still describes occasional symptoms of dysphagia but the great majority of the time she is eating comfortably and without symptoms in that regard. She reports that her bowel movements are fairly regular and there has been no sign of hematochezia nor melena. She denies any abdominal pain, jaundice, nor any unintentional weight loss. Unfortunately she has gained about 50 pounds back after her previous weight loss from the gastric bypass. Laboratories from earlier this year revealed normal chemistries and renal function, normal CBC, and normal LFTs. * Medical History:?GERD--02/14 EGD --HH, gastric polyps, no esophagitis, no Hussein's--Lap. Phylicia as below, Denies MS,DM,CVA,Lung disease,renal disease, Depression, Hyperlipidemia, HTN, PE and DVT in [facility] 04/01/2016--followed by Dr. Covarrubias, ERCP with removal of CBD stone in 11/2017, Neg screening colonoscopy in 01/2015, Right-sided breast cancer 2024--sees Dr. Torres and Dr. Covarrubias--01/2025 lumpectomy; going to have XRT in summer 2024, Upper endoscopy in 2018 revealed a small hiatal hernia, her previous gastric bypass surgery with a normal anastomosis, and no sign of esophagitis. Biopsies were negative for eosinophilic esophagitis. There was no Hussein's esophagus nor an esophageal stricture noted.. * Surgical History:?Laparoscop ic Hiatal Hernia repair with Dr. Rutherford on 09/26/14 , LEEP , D & C , Surgery for cervical cancer in her 20's , Lap cholecystectomy-Dr. Torres 11/2017, Gastric [place] [facility]went from [id number]_# to 217_# 12/2017, Right hip replacement scheduled at [facility] for 05/15/19 , Right knee replacement scheduled for 07/14/19 , Left knee replacement scheduled for 08/2019 , Umbilical hernia x2 , Lumpectomy as above 2024. * Family History:?Father: dece ased 94 yrs, diagnosed with HTN (hypertension), Heart disease.?Mother: , Ulcerative colits, lymphoma,, diagnosed with HTN (hypertension).? No colorectal cancer. * Social History:?Tobacco Use:?Tobacco Use/Smoking?Are you a: nonsmoker.?Drugs/Alcohol:?Alcohol Screen?Points: 0, Interpretation: Negative.?Miscellaneous:?Marital status: single. 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 ???Nonsmoker; no sig alcohol. * Medications:?Taking Wegovy 1 MG/0.5ML Solution Auto-injector 0.5 mL Subcutaneous , Taking traZODone HCl 50 MG Tablet 1 tablet at bedtime as needed Orally Once a day , Taking Levocetirizine Dihydrochloride 5 MG Tablet 1 tablet in the evening Orally Once a day , Taking Fluticasone Propionate (Inhal) 50 MCG/ACT Aerosol Powder Breath Activated 1 puff Inhalation Twice a day , Taking FLUoxetine HCl 40 MG Capsule 1 capsule Orally Once a day , Taking Ferretts 325 (106 Fe) MG Tablet 1 tablet Orally Three times a Week , Taking Famotidine 40 MG Tablet 1 tablet Orally Once a day , Taking oxyCODONE HCl 5 MG Tablet 1 tablet as needed Orally every 6 hrs , Taking Cyclobenzaprine HCl 10 MG Tablet 1 tablet at bedtime as needed Orally Once a day , Taking Clotrimazole 1 % Cream 1 application Externally Twice a day , Taking Cholecalciferol 50 MCG (2000 UT) Tablet 1 tablet Orally Once a day , Taking Calcium Citrate + D3 315-6.25 MG-MCG Tablet 1 tablet Orally Twice a day , Taking buPROPion HBr ER 174 MG Tablet Extended Release 24 Hour 1 tablet in the morning Orally Once a day , Taking hydroCHLOROthiazide 12.5 MG Capsule 1 capsule Orally three times a week , Notes to Pharmacist: For edema, Taking Multi Vitamin/Minerals Tablet Orally , Taking Fluoxetine 30 mg one tablet orally once a day , Taking Pantoprazole Sodium 40 MG Tablet Delayed Release 1 tablet Orally Once a day , Taking Fiber - Tablet as directed Orally prn , Taking Vitamin D3 Gummies Adult , Taking Xarelto 10 MG Tablet 1 tablet with food Orally Once a day , Taking Rosuvastatin Calcium 5 MG Tablet 1 tablet Orally Once a day , Medication List reviewed and reconciled with the patient Objective: * Vitals:?Wt:266lbs, Ht: 66 in , BMI:42.93Index, BP:111/77mm Hg, Wt-k.66. Assessment: * Assessment: 1.?Gastroesophageal reflux d isease, esophagitis presence not specified - K21.9 (Primary)???2.?Dysphagia - R13.10???3.?Colon cancer screening - Z12.11??? Overall, Guero appears well and does not seem to be having any particularly worrisome GI symptoms. I did recommend a follow-up colonoscopy for screening purposes given her last exam being back in 2014. We did review the rationale for this in regard to colon cancer prevention. She was also concerned about her ongoing issues with reflux and occasional dysphagia while on the famotidine. This does not seem particularly worrisome but she will undergo an upper endoscopy on the same day as her colonoscopy. Full consent has been obtained from her for both procedures, including risks of bleeding and perforation. The procedures will be done with monitored anesthesia care. She was given the below instructions regarding adjustment of her medications for the procedure. We did review that if she is found to have esophagitis I would then plan to switch her back to a PPI instead of the H2 arjun. Guero was comfortable with this plan. Thank you again for allowing me to participate in Guero's care. I shall continue to keep you advised of her progress.. Plan: * Treatment: 2.?Dysphagia?Procedure: UPPER GI ENDOSCOPY BALLOOON DILATION OF ESOPH* sched for 10/14/25 at 9:00 a [facility] 3.?Colon cancer screening?Procedure: COLONOSCOPY* With MAC. Do not use the Weg ovy for at least 7 days before the procedure. Stop the Xarelto for 2 days before the procedure and make sure that is okay with Dr. Covarrubias. Do not use any hydrochlorothiazide the day before or the day of the procedure.sched for 10/14/25 at 9:00 [facility] * Procedure Codes:?74383 ESOPH KENA ENDOSCOPY, 62179 DIAGNOSTIC COLONOSCOPY * Preventive Medicine:? ??Urinary Incontinence:?Urinary Incontinence?Assessment:?Present,?Plan of care documented:?Yes,?Type of plan of care:?Lifestyle interventions.? ??Screenings:?Fall Risk Screening?Fall Risk Assessment:?One fall without injury in the past year unsteady gait,?Screening:?One fall without injury in the past year, Assessment:?Not performed, no reason specified,?Plan of Care:?Not documented, no reason specified.? * * The named appointment provid er may or may not be the originator of this progress note, and it is not deemed complete until electronically signed by the appointment provider. Sign off status: Pending * Provider:?Tye Quintanilla MD Date:? 025 Generated for Chong badillo/Chrissy/Marcelosmitting on:?04/12/2025 09:14 AM EDT History and Physical Notes * HPI (History of Present Illness) Category Sub-Category Detail Notes Category Not es incontinence I saw Guero in consultation today in regard to further evaluation of her chronic Gastrosoft reflux, dysphagia, and need for colorectal cancer screening. I last saw Guero in 2019, at which time she underwent an upper endoscopy. This revealed her small hiatal hernia and previous surgery for the gastric bypass. There was no sign of any esophagitis, esophageal stricture, Hussein's esophagus, nor eosinophilic esophagitis. The previous gastric bypass anastomosis appeared normal. She had been on a PPI at that time but has only been using famotidine recently. For the most part the famotidine works well although she still has intermittent symptoms of heartburn and reflux. She still describes occasional symptoms of dysphagia but the great majority of the time she is eating comfortably and without symptoms in that regard. She reports that her bowel movements are fairly regular and there has been no sign of hematochezia nor melena. She denies any abdominal pain, jaundice, nor any unintentional weight loss. Unfortunately she has gained about 50 pounds back after her previous weight loss from the gastric bypass. Laboratories from earlier this year revealed normal chemistries and renal function, normal CBC, and normal LFTs.
--- OUTSIDE RECORDS SUMMARY | 2025-04-12 09:14 | XMS_ITS | Patient Health Record ---
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 Name Role Phone Lana HUERTA, Denisha Primary Care Provider Tye Rachel Unavailable [phone] Reason For Referral No Information Medications Medication SIG (Take, Route, Frequency, Duration) Notes Start Date End Date Status Famotidine 40 MG 1 tablet Orally Once a day Active Fiber - as directed Orally prn Active oxyCODONE HCl 5 MG 1 tablet as needed Orally every 6 hrs Active Vitamin D3 Gummies Adult Active FLUoxetine HCl 40 MG 1 capsule Orally Once a day Active Fluoxetine 30 one tablet orally once a day Active Ferretts 325 (106 Fe) MG 1 tablet Orally Three times a Week Active Pantoprazole Sodium 40 MG 1 tablet Orall y Once a day Active hydroCHLOROthiazide 12.5 MG 1 capsule Or ally three times a week For edema Active Fluticasone Propionate (Inhal) 50 MCG/ACT 1 puff Inhalation Twice a day Active Multi Vitamin/Minerals Orally Active traZODone HCl 50 MG 1 tablet at bedtime as needed Orally Once a day Active buPROPion HBr ER 174 MG 1 tablet in the morning Orally Once a day Active Levocetirizine Dihydrochloride 5 MG 1 tablet in the evening Orally Once a day Active Cholecalciferol 50 MCG (1999 UT) 1 tablet Orally Once a day Active Wegovy 1 MG/0.5ML 0.5 mL Subcutaneous Active Calcium Citrate + D3 315-6.25 MG-MCG 1 tablet Orally Twice a day Active Cyclobenzaprine HCl 10 MG 1 tablet at be dtime as needed Orally Once a day Active Xarelto 10 MG 1 tablet with food Orally Once a day Active Clotrimazole 1 % 1 application Externally Twice a day Active Rosuvastatin Calcium 5 MG 1 tablet Orall y Once a day Active Immunizations Vaccine Route Administration Date Status Comme nts Influenza Unknown 07/25/2018 Administered Problems Problem Type SNOMED Code ICD Code Onset Dates Problem Status W/U Status Risk Notes Problem Colon cancer screening (144973684) Colon cancer screening (Z12.11) Active confirmed Problem Dysphagia (17750592) Dysphagia (R13.10) Active confirmed Problem 839737620 Gastroesophageal reflux disease, esophagitis presence not specified (K21.9) Active confirmed Problem 46668005 Pharyngoesophage al dysphagia (R13.14) Active confirmed Vital Signs Blood pressure diastolic 77 mm Hg 04/05/2025 Height 66 in 04/05/2025 Blood pressure systolic 111 mm Hg 04/05/2025 Weight 266 lbs 04/05/2025 BMI 42.93 kg/m2 04/05/2025 Procedures Procedure Date Ordered Date Performed Result Body Sit e UPPER GI ENDOSCOPY BALLOOON DILATION OF ESOPH 04/05/2025 N/A COLONOSCOPY 04/05/2025 N/A Encounters Encounter Location Date Provider Diagnosis [facility] [address] [place] [address] 04/05/2025 Tye Quintanilla Gastroesophageal ref lux disease, esophagitis presence not specified K21.9 ; Dysphagia R13.10 and Colon cancer screening Z12.11 Assessments Encounter Date Diagnosis (ICD Code) Assessment Notes Treatment Notes Treatment Clinical Notes Section Notes 04/05/2025 Dysphagia (ICD-10 - R13.10) Overall, Guero [...] keep you advised of her progress.. 04/05/2025 Gastroesophageal reflux disease, esophagitis presence not [...] BALLOOON DILATION OF ESOPH 04/05/2025 COLONOSCOPY 04/05/2025 XR BARIUM SWALLOW-ESOPHAGUS 05/02/2014 Future Test Test Name Order Date COLONOSCOPY 12/08/2014 UPPER GI ENDOSCOPY BALLOOON DILATION OF ESOPH 03/16/2019 Next Appt Details Provider Name:Tye Quintanilla , 10/14/2025 09:00:00 AM, [address] [place] [address] , [place], [place], [phone], Insurance Providers Payer Name Payer Address Payer Phone Subscriber Number Group Number Insured Name Patient Relationship to Insured Coverage Start Date Coverage End Date MEDICARE OF [place] [address] [facility] [place] [address] [phone] [id number] GUERO CHA Self - patient is the insured 8 MEDICAID OF [facility] [address] [place] [address] [phone] [id number] GUERO CHA Self - patient is the insured Medical (General) History Medical History History ICD Code GERD--02/15/2008 EGD --HH, g astric polyps, no esophagitis, no Hussein's--Lap. Whatley as below Denies PR,DM,CVA,Lung disease,renal dise ase Depression Hyperlipidemia HTN PE and DVT in [facility] 04/01/2016--followed by Dr. Covarrubias ERCP with removal of CBD stone in 11/2017 Neg screening colonoscopy in 01/2015 Right-sided breast cancer 20 25--sees Dr. Torres and Dr. Covarrubias--01/2025 lumpectomy; going to have XRT in summer 2024 Upper endoscopy in 2019 reve aled a small hiatal hernia, her previous gastric bypass surgery with a normal anastomosis, and no sign of esophagitis. Biopsies were negative for eosinophilic esophagitis. There was no Hussein's esophagus nor an esophageal stricture noted. Surgical History Surgery Date(Month/Year) Lumpectomy as above 2024 Umbilical hernia x2 Left knee replacement scheduled for 08/25 019 Right knee replacement scheduled for 06/25 12/12 Right hip replacement scheduled at [facility] for 05/15/19 Gastric bypass surgery and H H repair at [facility] [place]--went from 347_# to 217_# 12/2017 Lap cholecystectomy-Dr. Torres 11/2017 Surgery for cervical cancer in her ' D & C LEEP Laparoscopic Hiatal Hernia repair with Hazel Rutherford on 09/26/14
== END 2025-04-12 09:06 | disposition home or self-care (01) ==
LOC: HO.HGS 08:51
PROVIDERS: PCP Internal Medicine
DX: Z48.89 Encounter for other specified surgical aftercare (principal)
CPT/HCPCS: 99024

== ENCOUNTER 2025-04-12 10:50 | Outpatient (REF) | payer MEDICARE, MEDICAID, SELFPAY ==
--- NOTE | ~2025-04-12 | MM_ITS ---
EXAMINATION: DXA BONE DENSITY AXIAL HISTORY: M85.80 DISORDERS OF BONE DENSITY AND STRUCTURE TECHNIQUE: [employer] Dual energy absorptiometry (DEXA) of the lumbar spine, total left hip, and femoral neck was performed. COMPARISON: There are no prior studies for comparison. FINDINGS: The bone mineral density of the lumbar spine is 1.142 with a T-score of -0.3, and a Z-score of -0.2. This is indicative of normal bone mineral density. The bone mineral density of the left total hip is 0.851 with a T-score of -1.2, and a Z-score of -1.1. This is indicative of osteopenia. The bone mineral density of the left femoral neck is 0.882 with a T-score of -1.1, and a Z-score of -0.6. This is indicative of osteopenia. FRACTURE RISK: The FRAX index suggests a risk of major osteoporotic fracture of 6.7%, and of hip fracture 0.4%. MM/XR DEXA axial skeleton IMPRESSION: Based on bone mineral density, and according to World Health Organization (WHO) criteria, the diagnosis is consistent with osteopenia. All bone density values are in grams per centimeter squared (g/cm2). Statistically, 68% of repeat scans fall within 1 SD (+/- 0.010 g/cm2 for AP spine L1-L4) and 1 SD (+/- 0.012 g/cm2 for femur total) FRAX is a trademark of the [employer]'s [employer] Metabolic Bone Disease, a World Health Organization (WHO) Collaborating Center. Electronically signed by: Tye Velez MD 04/12/2025 11:39 AM EDT
== END 2025-04-12 10:51 | disposition home or self-care (01) ==
LOC: HO.MAMMO 10:50
PROVIDERS: PCP Internal Medicine; Visit Provider Internal Medicine Medical Oncology
DX: Z13.820 Encounter for screening for osteoporosis (principal); M89.9 Disorder of bone, unspecified; M85.89 Other specified disorders of bone density and structure, multiple sites
CPT/HCPCS: 77080; 99212

== ENCOUNTER → 2025-04-12 11:00 | Outpatient (BNV) | payer MEDICARE, MEDICAID, SELFPAY | PROVIDERS: PCP Internal Medicine; Visit Provider Radiology Diagnostic Radiology | DX: E28.39 Other primary ovarian failure (principal) | CPT/HCPCS: 77080 ==

== ENCOUNTER 2025-05-26 10:29 | Outpatient (REF) | payer MEDICARE, MEDICAID, SELFPAY ==
--- OUTSIDE RECORDS SUMMARY | 2025-05-26 11:14 | XMS_ITS | Patient Health Record ---
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 Name Role Phone Lana HUERTA, Denisha Primary Care Provider Tye Rachel Unavailable [phone] Reason For Referral No Information Medications Medication [...] Status Risk Notes Problem Colon cancer screening (168600376) Colon cancer screening (Z12.11) Active confirmed Problem Dysphagia (25541929) Dysphagia (R13.10) Active confirmed Problem 050363353 Gastroesophageal reflux disease, esophagitis presence not specified (K21.9) Active confirmed Problem 12771522 Pharyngoesophage al dysphagia (R13.14) Active confirmed Vital Signs Blood pressure diastolic 77 mm Hg 04/05/2025 Height 66 in 04/05/2025 Blood pressure systolic 111 mm Hg 04/05/2025 Weight 266 lbs 04/05/2025 BMI 42.93 kg/m2 04/05/2025 Procedures Procedure Date Ordered Date Performed Result Body Sit e UPPER GI ENDOSCOPY BALLOOON DILATION OF ESOPH 04/05/2025 N/A COLONOSCOPY 04/05/2025 N/A Encounters Encounter Location Date Provider Diagnosis [facility] [address] [place] [address] 04/05/2025 Tye Quintanilla Gastroesophageal ref lux disease, [...] Provider Name:Tye Quintanilla , 10/14/2025 09:00:00 AM, [address] [place] [address] , [place], [place], [phone], Insurance Providers Payer Name Payer Address Payer Phone Subscriber Number Group Number Insured Name Patient Relationship to Insured Coverage Start Date Coverage End Date MEDICARE OF [place] [address] [facility] [place] [address] [phone] [id number] GUERO CHA Self - patient is the insured 8 MEDICAID OF [facility] [address] [place] [address] [id number] GUERO CHA Self - patient is the insured Medical (General) History Medical History History ICD Code GERD--02/15/2008 EGD --HH, g astric polyps, no esophagitis, no Hussein's--Lap. Whatley as below Denies DC,DM,CVA,Lung disease,renal dise ase Depression Hyperlipidemia HTN PE [...] 06/25 12/12 Right hip replacement scheduled at [facility] for 05/15/19 Gastric bypass surgery and H H repair at [facility] [place]--went from 347_# to 217_# 12/2017 Lap cholecystectomy-Dr. Torres 11/2017 Surgery for cervical cancer in her ' D & C LEEP Laparoscopic Hiatal Hernia repair with Hazel Rutherford on 09/26/14
[2025-05-26 13:38] LABS: Hemoglobin A1C 130.3444 umol/L; Total Hemoglobin (HGBA1C) 3963.6776 umol/L
[2025-05-26 13:43] LABS: Alanine Aminotransferase 28 U/L (0-31); Aspartate Amino Transferase 30 U/L (5-31); Cholesterol 200 mg/dL (<200); HDL Cholesterol 82 mg/dL (>40); Triglycerides 116 mg/dL (<150)
== END 2025-05-26 10:30 | disposition home or self-care (01) ==
LOC: HO.HMGCLDS 10:29
PROVIDERS: PCP Internal Medicine; Visit Provider Internal Medicine
DX: E66.01 Morbid (severe) obesity due to excess calories (principal); I10 Essential (primary) hypertension; E78.00 Pure hypercholesterolemia, unspecified
CPT/HCPCS: 36415; 80061; 83036; 84443; 84450; 84460

== ENCOUNTER 2025-07-26 10:07 | Outpatient (AMB) | payer MEDICARE, MEDICAID, SELFPAY ==
--- NOTE | 2025-07-26 10:20 | A.OFFVIS_ITS ---
Vital Signs 07/26/25 10:22 Height 5 ft 8 in Weight 266 lb BMI 40.4 BP 183/98 H Blood Pressure Location Lt brachial Position Sitting Pulse 87 Intake Visit Reasons: 3 month follow up visit, breast exam Intake Note: Patient is seen in office for 3 month follow up visit, breast exam. 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 Shop Supervisor Present Accompanied by: Self / Same As Patient Allergies No Known Allergies Allergy (Verified 07/12/25 15:27) Medication List - Last Reconciled 07/26/25 by Kevin Torres MD bupropion HCl XL 150 mg PO QAM calcium citrate-vitamin D3 315 mg-5 mcg (200 unit) 1 tab PO BID cholecalciferol (vitamin D3) 50 mcg PO DAILY clotrimazole-betamethasone 1-0.05 % 1 appl topical BID 10 days cyclobenzaprine 10 mg PO BEDTIME PRN famotidine 40 mg PO DAILY ferrous fumarate (Ferretts) 325 mg PO DAILY fluoxetine 40 mg PO DAILY fluticasone propionate 50 mcg/actuation 1 spray intranasal DAILY hydrochlorothiazide 12.5 mg PO 3XW PRN letrozole 2.5 mg PO DAILY levocetirizine 5 mg PO DAILY oqijdjdihxsv-bhg-lakj-FA-vit K 45 mg iron- 800 mcg-120 mcg (Bariatric Multivitamins) 45 caps PO DAILY oxycodone 5 mg PO Q6H PRN ribociclib 400 mg PO DAILY ribociclib 400 mg PO DAILY rivaroxaban (Xarelto) 10 mg PO DAILY rosuvastatin 5 mg PO DAILY trazodone 50 mg PO DAILY Wegovy (semaglutide (weight loss)) 1 mg (0.5 mL) subcut QWEEK NS zinc gluconate 10 mg PO DAILY HPI Comments Details: 60-year-old female patient presenting with a screening mammogram performed on 11/16/2024 with additional images obtained on 12/23/2023 including ultrasound of the right breast. This revealed a focal asymmetry in the upper outer breast anterior depth persistent with associated architectural distortion on additional imaging projections. No suspicious calcifications or other abnormalities were identified. Targeted Doppler ultrasound revealed a hypoechoic taller than wide irregular solid mass in the 10 o'clock position, 7 cm from the nipple measuring 6 x 3 x 4 mm with posterior shadowing. This was felt to be suspicious for malignancy and ultrasound-guided core biopsy recommended. Family history is significant for sister developing breast cancer at the age of 63. She underwent radiation therapy and antiestrogen therapy. She denies any other family members with breast or ovarian cancer. Her sister did not undergo genetic testing. Patient has a prior history of progesterone use but subsequently developed blood clots therefore the medication was stopped. Her menarche was the age of 12. She is 1 and menopause was at the age of 51. She underwent ultrasound-guided core biopsy of the right breast on 01/05/2025. Pathology revealed invasive carcinoma with ductal and lobular features, grade 2, ER/NJ positive, HER2 Nellie negative, Ki-67 high. She subsequently underwent a right breast lumpectomy with localizer and sentinel node biopsy on 02/03/2025. Pathology revealed invasive ductal carcinoma, grade 2, 1.2 cm in size with negative margins. Two sentinel lymph nodes were negative for metastatic carcinoma. AJCC stage 8th addition pT1c N0 (sn), ER positive, NJ positive, HER2 Nellie negative, high proliferation Ki-67. Genetic testing revealed no clinically significant mutations and no mutations of unknown significance. Oncotype testing revealed a score of 18. She underwent radiation therapy at [facility], concluded on 06/08/2025. She tolerated this well but still has some soreness associated with the radiation. She was started on Kisqali and letrozole by Dr. Covarrubias. She is scheduled for a follow-up mammogram in October 2025. [facility] Medical History Umbilical hernia Uterine fibroid Cervical dysplasia Primary osteoarthritis of both knees Pulmonary embolism Seasonal allergies Steatosis, liver History of pulmonary embolism Osteoarthritis Depression Gastric reflux Hiatal hernia Hypertension Hyperlipidemia Surgical History History of lumpectomy of right breast (02/03/25) S/P gastric bypass Status post right knee replacement History of right hip replacement H/O bariatric surgery History of cholecystectomy H/O umbilical hernia repair Family History Father Mental health disorder Sister Lymph node cancer Mental health disorder Thyroid disorder Mother Lymph node cancer Mental health disorder Mother Tumor Brother Substance use disorder Social History Household Members: Spouse Housing: Apartment Are you a primary care worker to a significant other at home: No Do you presently have visiting nurse or other home services: No Alcohol intake: current Alcohol intake frequency: holidays/special occasions only Patient Tobacco Use Status: Never used Tobacco e-Cigarette/Vaping Use: Never Used service: No Current occupational status: unemployed and disabled Gender identity: Female Cognitive needs: No Hearing needs: No Vision needs: Yes Female Reproductive History Menstrual Age of Menarche: 12 Review of Systems Const All systems reviewed & are unremarkable except as noted in HPI and below Physical Exam Vital Signs: Last Vital Signs Pulse 87 07/26/25 10:22 BP 183/98 H 07/26/25 10:22 BMI result Body Mass Index 40.4 Const General: cooperative and no acute distress Nutritional Appearance: well nourished Orientation/consciousness: patient oriented x3 Limitations: no limitations HEENT Head: Yes normocephalic and Yes atraumatic Ears: hearing grossly normal bilaterally Chest Other: Right breast: Incision in the upper outer quadrant is clean, dry, and intact without seroma or hematoma. Right axillary incision also clean and intact without evidence of infection or seroma. Resp Effort & Inspection: normal respiratory effort, no audible wheezes, no cough and no respiratory distress Cardio Jugular venous distension: no JVD GI Inspection: Yes normal to inspection Skin Other: Warm, dry, no rash Neuro Other: Mobility Assessment: 1. 3 meter assessment time (seconds) 7 2. Gait observations: Normal balance and gait General: patient oriented x3 Extrem General: Yes no clubbing, cyanosis or edema Assessment & Plan Assessment & Plan (1) Invasive ductal carcinoma of right breast: Code(s): C50.911 - Malignant neoplasm of unspecified site of right female breast Category: Medical Plan 60-year-old female patient returning for a breast cancer follow-up examination. She underwent a right breast ultrasound-guided core biopsy which revealed invasive carcinoma of the right breast with ductal and lobular features, ER/NJ positive, HER2 Nellie negative, Ki-67 high. She underwent right breast lumpectomy with localizer and right axillary sentinel node biopsy, and the pathology confirmed invasive ductal carcinoma, grade 2, 1.2 cm with negative margins, 0 of 2 sentinel lymph nodes with metastatic disease, ER/NJ positive, HER2 Nellie ne gative (pT1c N0 (sn)). She is being followed by Dr. Covarrubias and completed radiation therapy at [facility]. Examination today reveals good recovery following the radiation therapy. No new suspicious findings were identified. She will follow up in 6 months for routine breast examination but should call sooner for any new concerns. Coding Level of Care Code Est Pt Level 3 (64160) Complex EM visit Add On G2211 Diagnoses Invasive ductal carcinoma of right breast C50.911
[2025-07-26 10:22] VITALS: BP 183/98; PULSE 87; BMI 40.4
--- OUTSIDE RECORDS SUMMARY | 2025-07-26 11:34 | XMS_ITS | Clinical Summary ---
Author Organization [facility] Address [address] [place] [id number] Phone Care Team Providers Care Immigration Judge Name Role Phone Denisha Schwartz MD Primary Care Provider Allergies No known active allergies Medications traZODone (DESYREL) 50 MG tablet Take 100 mg by mouth nightly at bedtime. Active calcium citrate-vitamin D3 315 mg-6.25 mcg (250 unit) per tablet Take 1 tablet by mouth daily. Active rivaroxaban (XARELTO) 10 mg tablet Take 10 mg by mouth daily. Active famotidine (PEPCID) 40 MG tablet Take 40 mg by mouth daily. Active rosuvastatin (CRESTOR) 5 MG tablet Take 5 mg by mouth daily. Active levocetirizine (XYZAL) 5 MG tablet Take 5 mg by mouth every evening. Active hydroCHLOROthiazi de 12.5 MG tablet Take 12.5 mg by mouth daily. Active amoxicillin (AMOXIL) 500 MG capsule Take 500 mg by mouth 3 (three) times a day as needed (for dental visits). As needed for dental visits Active fluticasone propionate 50 mcg/actuation diskus inhaler Inhale 1 puff into the lungs 2 (two) times a day. Active multivit-min/iron /folic acid/K (BARIATRIC MULTIVITAMINS ORAL) Take by mouth. Active cholecalciferol (VITAMIN D3) 25 MCG (1,000 unit) tablet Take 2,000 Units by mouth daily. Active semaglutide, weight loss, (WEGOVY) 1 mg/0.5 mL subcutaneous injection Inject 1 mg under the skin every 7 days. Active FLUoxetine (PROZAC) 40 MG capsule Take 40 mg by mouth daily. Active buPROPion (WELLBUTRIN SR) 150 MG SR 12 hr tablet Take 150 mg by mouth 2 (two) times a day with meals. Active rivaroxaban (XARELTO) 10 mg tablet 1 tablet with food Orally Once a day Active clotrimazole (LOTRIMIN) 1 % cream 1 Application. Active triamcinolone acetonide 0.5 % creamIndications: skin inflammation,yeas t Apply topically 2 (two) times a day. Indications: skin inflammation , yeast 025 Discontinued cyclobenzaprine (FLEXERIL) 10 MG tablet 1 tablet at bedtime as needed Orally Once a day 025 Discontinued ferrous fumarate 325 mg (106 mg iron) Tab 1 tablet Orally Three times a Week 025 Discontinued Active Problems Problem Noted Date Diagnosed Date Class 3 severe obesity due t o excess calories with serious comorbidity and body mass index (BMI) of 40.0 to 44.9 in adult 07/11/2025 Malignant neoplasm of upper- outer quadrant of right breast in female, estrogen receptor positive 03/30/2025 Cancer Staging:Pathologic: pT1c, pN0, cM0, ER: Positive, NH: Positive, HER2: Negative - Signed by Kevin Painting MD on 03/30/2025 Encounters Date Type Department Care Team Description 07/11/2025 4:10 PM EDT Office Visit [facility] [address] [place] [address] Olga Woods MD Encounter for annual routine gynecological examination (Primary Dx); Fungal infection of skin; Class 3 severe obesity due to excess calories with serious comorbidity and body mass index (BMI) of 40.0 to 44.9 in adult 07/05/2025 2:30 PM EDT Telemedicine - audio only [facility] Rad Onc [address] [place] [address] Kevin Painting MD Malignant neoplasm of upper-outer quadrant of right breast in female, estrogen receptor positive (Primary Dx) 05/26/2025 9:20 AM EDT Procedure visit [facility] [address] [place] [address] Kevin Painting MD Malignant neoplasm of upper-outer quadrant of right breast in female, estrogen receptor positive (Primary Dx) 05/26/2025 Radiation Completion Encounter [facility] Rad Onc [address] [place] [id number] Kevin Painting MD Malignant neoplasm of upper-outer quadrant of right breast in female, estrogen receptor positive (Primary Dx) 05/25/2025 Documentation [facility] Onc [address] [place] [phone] Agnes iVllela [place] Rad Onc discharge (Malignant neoplasm of upper-outer quadrant of right breast in female, estrogen receptor positive) 05/23/2025 9:20 AM EDT Procedure visit [facility] Onc [address] [place] [address] Kevin Painting MD Malignant neoplasm of upper-outer quadrant of right breast in female, estrogen receptor positive (Primary Dx) 05/16/2025 9:20 AM EDT Procedure visit [facility] Rad Onc [address] [place] [address] Kevin Painting MD Malignant neoplasm of upper-outer quadrant of right breast in female, estrogen receptor positive (Primary Dx) 05/09/2025 9:20 AM EDT Procedure visit [facility] Rad Onc [address] [place] [address] Kevin Painting MD Busse, Paul M, MD, PhD Malignant neoplasm of upper-outer quadrant of right breast in female, estrogen receptor positive (Primary Dx) 05/03/2025 9:00 AM EDT Office Visit [facility] Rad Onc [address] [place] [address] Kevin Painting MD Malignant neoplasm of upper-outer quadrant of right breast in female, estrogen receptor positive (Primary Dx) from Last 3 Months Family History Medical History Relation Comments Cancer Mother Cancer Sister Relation Status Comments Mother Sister Alive Social History Tobacco Use Types Packs/Day Years Used Date Smoking Tobacco: Never Smokeless Tobacco: Never Tobacco Cessation:Counseling Given: Not Answered Alcohol Use Standard Drinks/Week Comments Not Currently 0 (1 standard drink = 0.6 oz pur e alcohol) Education Answer Date Recorded Are you interested in more education? Not on juan e 03/18/2025 Are you concerned about learning? Not on file 03/18/2025 No 03/18/2025 No 03/18/2025 Digital Access Answer Date Recorded No 03/18/2025 No 03/18/2025 Reliable internet access at home? Not on file 03/18/2025 Device with a working camera? Not on file Comments Unknown Sex and Gender Information Value Date Recorded Sex Assigned at Female 06/28/2025 8:42 PM EDT Legal Sex Female 10:12 AM EDT Gender Identity Female 06/28/2025 8:42 PM EDT Sexual Orientation Straight 06/28/2025 8: 42 PM EDT Last Filed Vital Signs Vital Sign Reading Time Taken Comments Blood Pressure 132/76 07/11/2025 3:33 PM EDT Pulse 81 05/23/2025 9:02 AM EDT Temperature 36.8 C (98.3 F) 05/09/2025 8:50 AM EDT Respiratory Rate 18 05/23/2025 9:02 AM EDT Oxygen Saturation 95% 05/23/2025 9:02 AM EDT Inhaled Oxygen Concentration - - Weight 119.7 kg (264 lb) 07/11/2025 3:33 PM EDT Height - - Body Mass Index - - Plan of Treatment Upcoming Encounters Date Type Department Care Team (Late st Contact Info) Description 12/29/2025 2:00 PM EST Office Visit [facility] Onc [address] [place] [phone] Kevin Painting MD [address] [place] [address] [email or web address] Health Maintenance Due Date Last Done Comments Adult Td,Tdap Booster 1965 CREATININE LEVEL 1965 LIPID PANEL 1965 POTASSIUM LEVEL 1965 DEPRESSION SCREENING 1976 HEPATITIS C SCREENING 02/15/1982 HIV ONE-TIME SCREENING (18-65 YEARS) 02/15/1982 PNEUMOCOCCAL VACCINES (50+ years) (1 of 2 - PCV) 02/15/1983 ZOSTER VACCINES (1 of 2) 02/15/1983 COLOGUARD 02/15/2009 COLONOSCOPY 02/15/2009 COLORECTAL CANCER SCREENING 02/15/2009 FIT TEST 02/15/2009 FOBT 02/15/2009 SIGMOIDOSCOPY 02/15/2009 VIRTUAL COLONOSCOPY 02/15/2009 COVID-19 VACCINE ( - season) 2024 INFLUENZA VACCINE (#1) 2025 MAMMOGRAM 01/18/2027 01/18/2025, 12/25, 12/23/2024, Additional history exists PAP SMEAR 07/11/2028 07/11/2025 RSV VACCINE (1 - 1-dose 75+ series) 02/15/2039 SMOKING STATUS SCREENING (Once After 26 Yrs) Completed 07/11/2025 HEPATITIS A VACCINES Aged Out No long er eligible based on patient's age to complete this topic HIB VACCINES Aged Out No longer eligi ble based on patient's age to complete this topic MENINGOCOCCAL VACCINES (ACWY) Aged Out No longer eligible based on patient's age to complete this topic MENINGOCOCCAL VACCINES (B) Aged Out N o longer eligible based on patient's age to complete this topic Medical Devices Not on file Procedures Procedure Name Priority Date/Time Associated Diagnosis Comments PAP TEST Routine 07/11/2025 12:00 AM EDT BI MAMMOGRAM OUTSIDE (NO INTERPRETATION) Routine 01/18/2025 12:00 AM EST from Last 3 Months or Most Recently Relevant to Health Maintenance Results * Pap Test (07/11/2025 12:00 AM EDT) 07/11/2025 07/12/2025 9:0 7 AM EDT Narrative SEE NARRATIVE - 07/13/2025 3:26 PM EDT [address] [address] Director Of Elementary Education: Nicola Root MD SINKER PULLER Cytology Report FINAL DIAGNOSIS A. PAP SMEAR (THIN PREP) CE: SPECIMEN ADEQUACY: Satisfactory for evaluation; transformation zone present. INTERPRETATION: NEGATIVE FOR INTRAEPITHELIAL LESION OR MALIGNANCY. This specimen was analyzed by the automated ThinPrep Imaging System ([employer] and the selected heck were reviewed by a card dealer. Electronically Signed Out By: RUDY Chacon(ASCP) The Pap test is a screening test primarily for squamous cancers and precursors and has associated false-negative and false-positive results. New technologies such as liquid-based preparations may decrease but will not eliminate all false-negative results. Regular sampling and follow-up of unexplained clinical signs and symptoms are recommended to minimize false negative results. PROCEDURES/ADDENDA HPV Testing (Requested) Ordered Date: 07/12/2025 A. PAP SMEAR (THIN PREP) CE: High-risk HPV Panel w/ extended genotyping NEG HPV 16-NEG HPV 18-NEG HPV 45-NEG HPV 33/58-NEG HPV 31-NEG HPV 56/59/66-NEG HPV 51-NEG HPV 52-NEG HPV 35/39/68-NEG Performed by real-time polymerase chain reaction (PCR) at [address] using the FDA-approved [employer] Onclarity HPV Assay with extended genotyping. Uses of the assay in scenarios other than those approved by the FDA should be considered off-label use. The accuracy and precision of this test for all other off-label specimen sources has been verified in the Cytopathology Laboratory of the [facility] and has not been cleared or approved by the U.S. Food and Drug Administration. Clinical correlation is advised. The assay assesses the E6/E7 DNA target and utilizes human beta globin as an internal control. Cytology and HPV testing are screening assays and should not be used as the sole means of detecting cancer. False-positives and false-negatives can occur. CLINICAL HISTORY Date of Last Menstrual Period: Not Provided Menstrual History: Post Menopausal Other Clinical Conditions: Screening Pap SPECIMEN SOURCE A: PAP SMEAR (THIN PREP) CE Patient Name: JAYLIN CLIFFORD : 1965 (Age: 60) Sex: F Institution: [facility] Location: [facility] Date of Collection: 07/11/2025 Date of Reported: 07/13/2025 15:26 Results to: Olga Woods MD us Olga Woods MD CYTOLOGY ORDERABLES Final Result SEE NARRATIVE * Mammogram Outside (No Interpretation) (01/18/2025 12:00 AM EST) Narrative SYSTEMGENERATED, DOCUMENTATION - 03/29/2025 11:25 AM EDT This study is for PACS storage only and not for interpretation. us Unknown Unknown IMG OUTSIDE IMAGING W/OUT INT ERPRETATION Final Result from Last 3 Months or Most Recently Relevant to Health Maintenance Insurance MEDICARE PART A & B [facility] MEDICARE PART A & B [place] B [place]ALTH MEDICARE PART [place] & [place] B HEALTH MEDICARE PART A & B [facility] Advance Directives For more information, please contact: [phone] (9AM - 5PM [facility], Friday-Friday) Documents on File Type Date Recorded Patient Open Shank Coverer Expl anation Healthcare Proxy 03/29/2025 03/29/25 [facility] PROXY Care Teams Immigration Judge Relationship Specialty Start Date End Date Denisha Schwartz MD [facility] [place] [id number] PCP - General Internal Medicine 03/18/25 Additional Source Comments The information contained in this document represents components of the legal health record. It is not the complete legal health record.[facility]
--- OUTSIDE RECORDS SUMMARY | 2025-07-26 11:35 | XMS_ITS | Patient Health Record ---
Author Organization [facility] Address [address] [place] [address] Care Team Providers Care Sales And Leasing Agent Name Role Phone Lana HUERTA, Denisha Primary Care Provider Tye Rachel Unavailable [phone] Reason For Referral No Information Medications Medication [...] Status Risk Notes Problem Colon cancer screening (Z12.11) Active confirmed Problem Dysphagia (37249884) Dysphagia (R13.10) Active confirmed Problem [id number] Gastroesophageal reflux disease, esophagitis presence not specified (K21.9) Active confirmed Problem 28069953 Pharyngoesophage al dysphagia (R13.14) Active confirmed Vital Signs Blood pressure diastolic 77 mm Hg 04/05/2025 Height 66 in 04/05/2025 Blood pressure systolic 111 mm Hg 04/05/2025 Weight 266 lbs 04/05/2025 BMI 42.93 kg/m2 04/05/2025 Procedures Procedure Date Ordered Date Performed Result Body Sit e UPPER GI ENDOSCOPY BALLOOON DILATION OF ESOPH 04/05/2025 N/A COLONOSCOPY 04/05/2025 N/A Encounters Encounter Location Date Provider Diagnosis [facility] [address] [place] [phone] 04/05/2025 Tye Quintanilla Gastroesophageal ref lux disease, [...] ESOPH 03/16/2019 Next Appt Details Provider Name:Tye Hammer Quintanilla , 10/14/2025 09:00:00 AM, [address] [place] [address] , [place], [place], [phone], Insurance Providers Payer Name Payer Address Payer Phone Subscriber Number Group Number Insured Name Patient Relationship to Insured Coverage Start Date Coverage End Date MEDICARE OF [place] [address] [place] [address] [phone] [id number] GUERO CHA Self - patient is the insured 8 [facility] [facility] [address] [place] [address] [id number] GUERO CHA Self - patient is the insured Medical (General) History Medical History History ICD Code GERD--02/15/2008 EGD --HH, g astric polyps, no esophagitis, no Hussein's--Lap. Phylicia as below Denies PR,DM,CVA,Lung disease,renal dise ase [...] 06/25 12/12 Right hip replacement scheduled at [facility] ate for 05/15/19 Gastric bypass surgery and H H repair at [facility]--went from [id number]_# to 217_# 12/2017 Lap cholecystectomy-Dr. Torres 11/2017 Surgery for cervical cancer in her 's D & C LEEP Laparoscopic Hiatal Hernia repair with Hazel Rutherford on 09/26/14
== END 2025-07-26 10:51 | disposition home or self-care (01) ==
LOC: HO.HGS 10:08
PROVIDERS: PCP Internal Medicine; Visit Provider Surgery
DX: C50.911 Malignant neoplasm of unspecified site of right female breast (principal)
CPT/HCPCS: 99213; G2211

== ENCOUNTER → 2025-07-26 10:07 | Outpatient (BNVA) | payer MEDICARE, MEDICAID, SELFPAY | PROVIDERS: PCP Internal Medicine; Visit Provider Surgery | DX: C50.911 Malignant neoplasm of unspecified site of right female breast (principal) | CPT/HCPCS: 99212 ==

== ENCOUNTER 2025-08-02 11:04 | Outpatient (AMB) | payer MEDICARE, MEDICAID, SELFPAY ==
--- NOTE | 2025-08-02 11:30 | A.OFFPC_ITS ---
Vital Signs 08/02/25 11:31 Height 5 ft 8 in Weight 267 lb BMI 40.6 BP 114/84 Blood Pressure Location Lt brachial Position Sitting Respiration 16 Pulse 96 Pulse Source Pulse Oximeter Temp 97.7 F Temp Source Oral Pulse Oximetry (%) 95 Oxygen Delivery Method Room Air Intake Visit Reasons: 4m f/u Intake Note: Pt is here today for her 4mo. f/u Allergies No Known Allergies Allergy (Verified 08/07/25 18:05) Medication List - Last Reconciled 08/02/25 by Denisha Schwartz MD bupropion HCl XL 150 mg PO QAM calcium citrate-vitamin D3 315 mg-5 mcg (200 unit) 1 tab PO BID cholecalciferol (vitamin D3) 50 mcg PO DAILY clotrimazole-betamethasone 1-0.05 % 1 appl topical BID 10 days cyclobenzaprine 10 mg PO BEDTIME PRN famotidine 40 mg PO DAILY fluoxetine 40 mg PO DAILY fluticasone propionate 50 mcg/actuation 1 spray intranasal DAILY hydrochlorothiazide 12.5 mg PO 3XW PRN letrozole 2.5 mg PO DAILY levocetirizine 5 mg PO DAILY hcavnukyfkpq-wot-dshq-FA-vit K 45 mg iron- 800 mcg-120 mcg (Bariatric Multivitamins) 45 caps PO DAILY ondansetron 8 mg PO Q8H PRN ribociclib 400 mg PO DAILY rivaroxaban (Xarelto) 10 mg PO DAILY rosuvastatin 5 mg PO DAILY Tobacco use date assessed: 08/02/25 Dental Screening Dental Screen Date: 01/24/25 HPI 4m f/u HPI0 Details 60 year-old lady with history pulmonary embolism currently on Xarelto, osteoarthritis, depression, hypertension, hyperlipidemia, seasonal allergies, morbid obesity status post gastric bypass, history of invasive ductal see if right breast, here today for follow-up. She no longer sees Dr. Suarez for her weight loss management, has been adhering to healthy eating habits, and tries to exercise regularly, compliant with taking her medications. Has been feeling well with no new complaints at present time [facility] Medical History Umbilical hernia Uterine fibroid Cervical dysplasia Primary osteoarthritis of both knees Pulmonary embolism Seasonal allergies Steatosis, liver History of pulmonary embolism Osteoarthritis Depression Gastric reflux Hiatal hernia Hypertension Hyperlipidemia Surgical History History of lumpectomy of right breast (02/03/25) S/P gastric bypass Status post right knee replacement History of right hip replacement H/O bariatric surgery History of cholecystectomy H/O umbilical hernia repair Family History Father Mental health disorder Sister Lymph node cancer Mental health disorder Thyroid disorder Mother Lymph node cancer Mental health disorder Mother Tumor Brother Substance use disorder Social History Household Members: Spouse Housing: Apartment Are you a primary director of career resources to a significant other at home: No Do you presently have visiting nurse or other home services: No Alcohol intake: current Alcohol intake frequency: holidays/special occasions only Patient Tobacco Use Status: Never used Tobacco e-Cigarette/Vaping Use: Never Used service: No Current occupational status: unemployed and disabled Gender identity: Female Cognitive needs: No Hearing needs: No Vision needs: Yes Female Reproductive History Menstrual Age of Menarche: 12 Questionnaire PHQ-9 Over the last 2 weeks, how often have you been bothered by any of the following problems? 1. Little interest or pleasure in doing things: several days 2. Feeling down, depressed, or hopeless: several days 3. Trouble falling or staying asleep, or sleeping too much: more than half the days 4. Feeling tired or having little energy: more than half the days 5. Poor appetite or overeating: several days 6. Feeling bad about yourself - or that you are a failure or have let yourself or your family down: several days 7. Trouble concentrating on things, such as reading the newspaper or watching television: several days 8. Moving or speaking so slowly that other people could have noticed. Or the opposite - being so fidgety or restless that you have been moving around a lot more than usual: not at all 9. Thoughts that you would be better off or of hurting yourself in some way: not at all Total score: 9 Depression Screening Interpretation: Positive (Currently on fluoxetine and bupropion, followed by therapist and psychiatry Jos eL Rodriguez at [facility] in [place]) Depression Screening Follow-up: Existing condition, In treatment and Community Mental Health Worker F/U Depression Screening Done: Yes Source: Developed by Drs. Tye May, Lee Cody and colleagues, with an educational joann from [employer]. Thrive Questionnaire Date Thrive assessed: 01/11/25 I am a: Patient What is your living situation today?: I have a place to live, but I am worried about losing it in the future Within the past 12 months, did the food you bought not last and you didn't have the money to get more?: Sometimes True Within the past 12 months, did you worry whether your food would run out before you got money to buy more?: Often true Do you have trouble paying for medicines?: Yes Do you have trouble getting transportation to medical appointments?: Yes Do you have trouble paying your heating and electricity bill?: Yes Do you have trouble taking care of your child, family member or friend?: No Do you have trouble with day-to-day activities such as bathing, preparing meals, shopping, managing finances, etc.?: Yes Are you currently unemployed and looking for a job?: Yes Are you interested in more education?: No Currently or been in a relationship where the following occur: No concerns reported THRIVE Score: 5 ENDY-7 AMB Questionnaire ENDY-7 Date ENDY - 7 assessed: 08/02/25 Feeling nervous, anxious, or on edge: 0 = Not at all Not being able to stop or control worryin = Not at all Worrying too much about different things: 0 = Not at all Trouble relaxin = Not at all Being so restless that it is hard to sit still: 0 = Not at all Becoming easily annoyed or irritable: 0 = Not at all Feeling afraid as if something awful might happen: 0 = Not at all Total ENDY-7 score (0-4 normal; 5-9 mild; 10-14 moderate; 15-21 severe): 0 Source: Developed by Drs. Tye May, Lee Cody and colleagues, with an educational joann from [employer]. ENDY-7 Assessment Billing ENDY-7 Assessment Tool: ENDY-7 Assessment 93613 Review of Systems Const Reports no additional complaints, Denies weight gain and Denies weight loss Eyes Denies change in vision ENT Reports no additional complaints Card Reports no additional complaints Resp Reports no additional complaints GI Reports no additional complaints Reports no additional complaints Musc Reports no additional complaints Skin/Breast Reports as per HPI Neuro Reports no additional complaints Psych Reports no additional complaints Endo Reports no additional complaints [place]/Lymph Reports no additional complaints Aller/Immun Reports no additional complaints Physical exam (Primary Care) Vital Signs: Last Vital Signs Temp 97.7 F 08/02/25 11:31 Pulse 96 08/02/25 11:31 Resp 16 08/02/25 11:31 BP 114/84 08/02/25 11:31 Pulse Ox 95 08/02/25 11:31 Oxygen Delivery Method Room Air 08/02/25 11:31 BMI result Body Mass Index 40.6 Tobacco/Smoking Status: Tobacco use Status Tobacco use date assessed 08/02/25 08/02/25 11:52 Patient Tobacco Use Status Never used Tobacco 08/02/25 11:34 e-Cigarette/Vaping Use Never Used 08/02/25 11:34 PHQ-9: PHQ-9 Score PHQ-9: Total score 9 08/02/25 12:17 Depression Screening Interpretation: Positive (Currently on fluoxetine and bupropion, followed by therapist and psychiatry Jose L Rodriguez at [facility] in [place]) Depression Screening Follow-up: Existing condition, In treatment and Community Mental Health Worker F/U Thrive Assessment: Date of Thrive Assessment Date Thrive assessed 01/11/25 08/02/25 11:34 Currently or been in a relationship where the following occur: No concerns reported Const Other: Obese, Alert oriented x3, ambulatory with normal gait Orientation/consciousness: patient oriented x3 [facility] Mouth: Normal oral and palatal mucosa present and moist mucous membranes Neck Other: Supple, no lymphadenopathy thyroid gland nonpalpable Resp Auscultation: clear to auscultation bilaterally Cardio Other: S1-S2 present regular rate and rhythm GI Other: Obese, soft, nontender with no mass palpated Skin General skin exam: no rashes or lesions noted Neuro General: patient oriented x3, gait normal, tone normal, moves all extremities and no focal motor deficits Extrem General: Yes full ROM, Yes no clubbing, cyanosis or edema and Yes normal gait Psych Appearance: grossly normal and well kempt Mental Status: mental status grossly normal Speech and movement: Normal speech and movement present Affect: normal affect Results Reviewed Results Reviewed: Name: Ramandeep Clifford Age/Sex: 60/F : 1965 Unit#: [id number] Attend Dr: Rosalind Covarrubias MD Re07/12/25 Status: REG RCR Location: .ONC Disch: SPEC : [id number] GARRISON: 07/12/25 STATUS: COMP REQ : [id number] RECD: 07/12/[address]: Rosalind Covarrubias MD COMP: 07/12/25 ENTERED: 07/12/[address]: Denisha Schwartz MD ORDERED: CBC Auto Diff Test Result Flag Reference WBC 9.4 4.8-10.8 X10*3/uL RBC 4.92 4.20-5.50 X10*6/uL HGB 14.3 12.0-16.0 g/dl HCT 42.9 37.0-47.0 % MCV 87.2 80.0-98.0 fL MCH 29.1 27.0-33.0 pg MCHC 33.3 31.0-35.0 g/dl RDW 14.3 11.0-16.0 % PLT 405 H 160-400 X10*3/uL MPV 8.5 L 9.4-12.3 fL Neut Pct Auto 68.5 45-73 % ImGran Pct Auto 0.3 0.0-0.4 % Lymp Pct Auto 22.5 20-40 % Huntington Pct Auto 7.8 2-11 % Eos Pct Auto 0.8 0-4 % Baso Pct Auto 0.1 0-2 % NRBC Pct Auto 0.0 0.0-0.2 /100WBC ANC Neut Abs # 6.5 2.0-8.3 x10*3/uL ImGran Abs Auto 0.03 0.00-0.03 X10*3/uL Lymph Abs Auto 2.1 1.2-4.9 X10*3/uL Huntington Abs Auto 0.7 0.1-1.2 X10*3/uL Eos Abs Auto 0.1 0.0-0.4 X10*3/uL Baso Abs Auto 0.0 0.0-0.2 X10*3/uL NRBC Abs Auto 0.000 0.0-0.012 X10*3/uL monica: Ramandeep Clifford Age/Sex: 60/F : 1965 Unit#: [id number] Attend Dr: Rosalind Covarrubias MD Re07/12/25 Status: REG RCR [facility] Disch: SPEC : [id number] GARRISON: 07/12/25 STATUS: COMP REQ : [id number] RECD: 07/12/[address]: Rosalind Covarrubias MD COMP: 07/12/25 ENTERED: 07/12/[address]: Denisha Schwartz MD ORDERED: CMP Test Result Flag Reference Sodium 140 135-145 mmol/L Potassium 4.3 3.3-5.1 mmol/L CL 110 H 96-108 mmol/L CO2 21 L 22-29 mmol/L Gap 13 12-20 BUN 21 H 9-16 mg/dL Creat 0.81 0.5-1.4 mg/dL Estimated CrCl 99.4 Provided height and weight: 172.72 cm, 120 kg. eGFR (calculated from the MDRD study equation) and eCrCl (calculated from the Cockcroft-Gault equation) are based on different parameters and may not yield comparable results. If eCrCl result is absurd, please check patient's height/weight. eGFR > 60 Chronic Kidney Disease: Estimated GFR < 60 mL/min/1.73m2 Severe Kidney Disease: Estimated GFR < 15 mL/min/1.73m2 Glucose, Random 85 60-115 mg/dL CA 9.7 8.4-10.2 mg/dL Total Bili 0.5 0.0-1.0 mg/dL AST (GOT) 36 H 5-31 U/L ALT (GPT) 39 H 0-31 U/L Protein, Total 7.0 6.5-8.0 g/dL Alb 4.3 3.5-5.0 g/dL Alk Phos 121 H 39-117 U/L Laboratory Tests 09/15/24 05/26/25 10:14 10:34 Estimat Average Glucose 103 Hemoglobin A1c % 5.2 Vitamin B12 487 Folate 10.1 Coding Level of Care Code Est Pt Level 4 (49307) Complex EM visit Add On G2211 Diagnoses Pure hypercholesterolemia E78.00 Hyperlipidemia type: pure hypercholesterolemia Essential hypertension I10 Hypertension type: essential hypertension History of pulmonary embolism Z86.711 Morbid obesity E66.01 Additional Codes ENDY-7 Assessment Billing - ENDY-7 Assessment Tool: ENDY-7 Assessment 53166 ([id number]) Assessment & Plan Assessment & Plan (1) Hyperlipidemia: Code(s): E78.5 - Hyperlipidemia, unspecified Category: Medical Qualifiers: Hyperlipidemia type: pure hypercholesterolemia Qualified Code(s): E78.00 - Pure hypercholesterolemia, unspecified Plan: Continue rosuvastatin 5 mg daily, recent fasting lipids within normal limits (2) Hypertension: Code(s): I10 - Essential (primary) hypertension Category: Medical Qualifiers: Hypertension type: essential hypertension Qualified Code(s): I10 - Essential (primary) hypertension Plan: Blood pressure at goal of less than 130/80. Continue with current medication. Reinforced importance of following a low sodium diet, getting regular exercise, and lowering stress levels. (3) History of pulmonary embolism: Code(s): Z86.711 - Personal history of pulmonary embolism Category: Medical Plan: Continue on Xarelto 10 mg daily, no abnormal bleeding tendencies reported (4) Morbid obesity: Code(s): E66.01 - Morbid (severe) obesity due to excess calories Category: Medical Plan: Recommended focusing on improving health instead of dieting. Mediterranean diet is a healthy diet that helps, limit food high in fat, sugar, and calories. Eat slowly, pay attention to portion sizes, plan your meals ahead of time, start regular physical activity, at least 150 minutes of moderate intensity exercise, or 90 minutes per week of vigorous exercise. Orders: Orders Lipid Panel 10/24/25 E78.00 - Pure hypercholesterolemia, unspecified Medications: Refilled famotidine 40 mg PO DAILY 90 tabs 4RF rosuvastatin 5 mg PO DAILY 90 tabs 4RF calcium citrate-vitamin D3 315 mg-5 mcg (200 unit) 1 tab PO BID 180 tabs 1RF
[2025-08-02 11:31] VITALS: BP 114/84; PULSE 96; RESP 16; TEMP 36.5; O2SAT 95; BMI 40.6
--- OUTSIDE RECORDS SUMMARY | 2025-08-02 13:25 | XMS_ITS | Clinical Summary ---
Author Organization [facility] Address [address] [place] [address] Phone Care Team Providers Care Tunneling Machine Operator Name Role Phone Denisha Schwartz MD Primary [...] (LOTRIMIN) 1 % cream 1 Application. Active letrozole (FEMARA) 2.5 mg tablet Take 1 tablet by mouth every morning. 07/13/20 Active KISQALI 400 mg/day (200 mg x 2) dose pack 07/18/20 Active triamcinolone acetonide 0.5 % creamIndications: skin [...] Cancer Staging:Pathologic: pT1c, pN0, cM0, ER: Positive, TX: Positive, HER2: Negative - Signed by Kevin Painting MD on 03/30/2025 Encounters Date Type Department Care Team Description 07/26/2025 Orders Only [facility] Rad Onc [address] [place] [address] Destiny Gaytan RN 07/11/2025 4:10 PM EDT Office Visit [facility] [address] [place] [address] Olga Woods MD Encounter for annual routine gynecological examination (Primary Dx); Fungal infection of skin; Class 3 severe obesity due to excess calories with serious comorbidity and body mass index (BMI) of 40.0 to 44.9 in adult 07/05/2025 2:30 PM EDT Telemedicine - audio only [facility] Rad Onc [address] [place] [address] Kevin Painting MD Malignant neoplasm of upper-outer quadrant of right breast in female, estrogen receptor positive (Primary Dx) 05/26/2025 9:20 AM EDT Procedure visit [facility] Onc [address] [place] [address] Kevin Painting MD Malignant neoplasm of upper-outer quadrant of right breast in female, estrogen receptor positive (Primary Dx) 05/26/2025 Radiation Completion Encounter [facility] Onc [address] [place] [address] Kevin Painting MD Malignant neoplasm of upper-outer quadrant of right breast in female, estrogen receptor positive (Primary Dx) 05/25/2025 Documentation [facility] Rad Onc [address] [place] [address] Agnes Villela [place] Rad Onc discharge (Malignant neoplasm of upper-outer quadrant of right breast in female, estrogen receptor positive) 05/23/2025 9:20 AM EDT Procedure visit [facility] Rad Onc [address] [place] [address] Kevin Painting MD Malignant neoplasm of upper-outer quadrant of right breast in female, estrogen receptor positive (Primary Dx) 05/16/2025 9:20 AM EDT Procedure visit [facility] Rad Onc [address] [place] [address] Kevin Painting MD Malignant neoplasm of upper-outer quadrant of right breast in female, estrogen receptor positive (Primary Dx) 05/09/2025 9:20 AM EDT Procedure visit [facility] Rad Onc [address] [place] [address] Kevin Painting MD Busse, Paul M, MD, PhD Malignant neoplasm of upper-outer quadrant of right breast in female, estrogen receptor positive (Primary Dx) 05/03/2025 9:00 AM EDT Office Visit [facility] Rad Onc [address] [place] [address] Kevin Painting MD Malignant neoplasm of upper-outer [...] Description 12/29/2025 2:00 PM EST Office Visit [facility] Rad Onc [address] [place] [address] Kevin Painting MD [address] [place] [id number] [email or web address] Maintenance Due Date Last Done Comments [...] FOBT 02/15/2009 SIGMOIDOSCOPY 02/15/2009 VIRTUAL COLONOSCOPY 02/15/2009 INFLUENZA VACCINE (#1) 2025 COVID-19 VACCINE ( season) 2025 MAMMOGRAM 01/18/2027 01/18/2025, 12/25, 12/23/2024, Additional [...] SEE NARRATIVE - 07/13/2025 3:26 PM EDT [address] [address] Crackling Press Operator: Nicola Root MD DEPARTMENTAL SECRETARY Cytology Report FINAL DIAGNOSIS A. PAP SMEAR (THIN PREP) CE: SPECIMEN ADEQUACY: Satisfactory for evaluation; transformation zone present. INTERPRETATION: NEGATIVE FOR INTRAEPITHELIAL LESION OR MALIGNANCY. This specimen was analyzed by the automated ThinPrep Imaging System ([employer] and the selected heck were reviewed by a practice lead. Electronically Signed Out By: RUDY Chacon(ASCP) The [...] by real-time polymerase chain reaction (PCR) at [facility], [address] [place] [address] using the FDA-approved BD Onclarity HPV Assay with extended genotyping. Uses of the assay in scenarios other than those approved by the FDA should be considered off-label use. The accuracy and precision of this test for all other off-label specimen sources has been verified in the Cytopathology Laboratory of the [facility] and has not been cleared or [...] PAP SMEAR (THIN PREP) CE Patient Name: STARLA NADINE ZimmerSyed : 1965 (Age: 60) Sex: F Institution: [facility] Location: [facility] Date of Collection: 07/11/2025 Date of Reported: [...] Maintenance [place] [id number] [facility] MEDICARE PART A & B Member Subscriber Plan / Payer (Ef fective 2018-Present) Name:Nadine Clifford Member ID:[id number] Relation to Subscriber:Self Name:Nadine Clifford Subscriber ID:[id number] Payer ID:[id number] Group ID:Not on file Type:Medicare Address: [employer] [address] [facility] [place] & B [place] A & B HEALTH MEDICARE PART A & B HEALTH MEDICARE PART A & B [facility] Advance Directives For more information, please contact: [phone] (9AM - 5PM [facility], Friday-Friday) Documents on File Type Date Recorded Patient Prosthetic Makeup Designer Expl anation Healthcare Proxy 03/29/2025 03/29/25 [facility] PROXY Care Teams Tunneling Machine Operator Relationship Specialty Start Date End Date Denisha Schwartz MD [address] [place] [address] PCP - General Internal Medicine 03/18/25 Additional Source Comments The information contained in this document represents components of the legal health record. It is not the complete legal health record.[facility]
--- OUTSIDE RECORDS SUMMARY | 2025-08-02 13:25 | XMS_ITS | Patient Health Record ---
Author Organization [facility] Address [address] [place] [address] Care Team Providers Care Supervisor Television Chassis Repair Name Role Phone Lana HUERTA, Denisha Primary Care Provider Tye aRchel Unavailable [phone] Reason For Referral No Information Medications Medication [...] Status Risk Notes Problem Colon cancer screening (931804865) Colon cancer screening (Z12.11) Active confirmed Problem Dysphagia (43777725) Dysphagia (R13.10) Active confirmed Problem [id number] Gastroesophageal reflux disease, esophagitis presence not specified (K21.9) Active confirmed Problem 33462970 Pharyngoesophage al dysphagia (R13.14) Active confirmed Vital Signs Blood pressure diastolic 77 mm Hg 04/05/2025 Height 66 in 04/05/2025 Blood pressure systolic 111 mm Hg 04/05/2025 Weight 266 lbs 04/05/2025 BMI 42.93 kg/m2 04/05/2025 Procedures Procedure Date Ordered Date Performed Result Body Sit e UPPER GI ENDOSCOPY BALLOOON DILATION OF ESOPH 04/05/2025 N/A COLONOSCOPY 04/05/2025 N/A Encounters Encounter Location Date Provider Diagnosis [facility] [address] [place] [address] 04/05/2025 Tye Quintanilla Gastroesophageal ref lux disease, [...] Provider Name:Tye Quintanilla , 10/14/2025 09:00:00 AM, [address] [place] [address] , [place], [place], [id number], Insurance Providers Payer Name Payer Address Payer Phone Subscriber Number Group Number Insured Name Patient Relationship to Insured Coverage Start Date Coverage End Date MEDICARE OF [place] [address] [place] [address] [phone] [id number] GUERO CHA Self - patient is the insured 8 MEDICAID OF [facility] [address] [place] [address] [id number] GUERO CHA Self - patient is the [...] 12/12 Right hip replacement scheduled at [facility] for 05/15/19 Gastric bypass surgery and H H repair [place] [facility]went from 347_# to 217_# 12/2017 Lap cholecystectomy-Dr. Torres 11/2017 Surgery for cervical cancer in her ' D & C LEEP Laparoscopic Hiatal Hernia repair with Hazel Rutherford on 09/26/14
== END 2025-08-02 12:18 | disposition home or self-care (01) ==
LOC: HO.HMCC 11:05
PROVIDERS: PCP Internal Medicine; Visit Provider Internal Medicine
DX: E78.00 Pure hypercholesterolemia, unspecified (principal); E66.01 Morbid (severe) obesity due to excess calories; Z68.41 Body mass index [BMI] 40.0-44.9, adult; I10 Essential (primary) hypertension; Z86.711 Personal history of pulmonary embolism

== ENCOUNTER → 2025-08-02 11:04 | Outpatient (BNVA) | payer MEDICARE, MEDICAID, SELFPAY | PROVIDERS: PCP Internal Medicine; Visit Provider Internal Medicine | DX: I10 Essential (primary) hypertension (principal); E78.00 Pure hypercholesterolemia, unspecified; F32.A Depression, unspecified; J30.2 Other seasonal allergic rhinitis; E66.01 Morbid (severe) obesity due to excess calories; Z98.84 Bariatric surgery status; Z68.41 Body mass index [BMI] 40.0-44.9, adult; Z86.711 Personal history of pulmonary embolism; Z79.01 Long term (current) use of anticoagulants | CPT/HCPCS: 96127; 99212 ==

== ENCOUNTER 2025-09-27 13:06 | Outpatient (AMB) | payer MEDICARE, MEDICAID, SELFPAY ==
[2025-09-27 13:12] VITALS: BP 126/80; PULSE 84; BMI 41.2
--- NOTE | 2025-09-27 13:12 | A.OFFVIS_ITS ---
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 Patient with a history of hypertension, PFO, DVT and PE on Xarelto, and history of bariatric surgery. Today, patient is reporting feeling well overall without any symptoms of exertional chest pain, shortness of breath, palpitations, dizziness, orthopnea, PND, leg edema, presyncope or syncope. Patient is reporting compliance with all medications. [facility] Medical History Umbilical hernia Uterine fibroid Cervical dysplasia Primary osteoarthritis of both knees Pulmonary embolism Seasonal allergies Steatosis, liver History of pulmonary embolism Osteoarthritis Depression Gastric reflux Hiatal hernia Hypertension Hyperlipidemia Surgical History History of lumpectomy of right breast (02/03/25) S/P gastric bypass Status post right knee replacement History of right hip replacement H/O bariatric surgery History of cholecystectomy H/O umbilical hernia repair Family History Father Mental health disorder Sister Lymph node cancer Mental health disorder Thyroid disorder Mother Lymph node cancer Mental health disorder Mother Tumor Brother Substance use disorder Social History Household Members: Spouse Housing: Apartment Are you a primary daycare provider to a significant other at home: No Do you presently have visiting nurse or other home services: No Alcohol intake: current Alcohol intake frequency: holidays/special occasions only Patient Tobacco Use Status: Never used Tobacco e-Cigarette/Vaping Use: Never Used service: No Current occupational status: unemployed and disabled Gender identity: Female Cognitive needs: No Hearing needs: No Vision needs: Yes Female Reproductive History Menstrual Age of Menarche: 12 Review of Systems Const Denies daytime sleepiness, Denies difficulty sleeping, Denies snoring, Denies stops breathing during sleep and Denies weakness Card Reports chest pain, Denies rapid heart rate, Denies irregular heart rhythm, Denies claudication, Denies leg edema, Denies lightheadedness, Reports palpitations, Denies dyspnea, Reports dyspnea on exertion, Denies orthopnea, Denies paroxysmal nocturnal dyspnea and Denies slow heart rate Resp Denies cough, Denies dyspnea, Reports dyspnea on exertion and Denies snoring GI Reports no additional complaints, Denies hematochezia, Denies change in stool character and Denies dyspepsia Musc Denies abnormal gait, Denies muscle weakness and Denies numbness Neuro Denies abnormal gait, Denies numbness and Denies weakness Endo Reports palpitations Physical Exam Vital Signs: Last Vital Signs Pulse 84 09/27/25 13:12 BP 126/80 09/27/25 13:12 BMI result Body Mass Index 41.2 Const General: cooperative, healthy appearing, comfortable and no acute distress Orientation/consciousness: patient oriented x3 HEENT Head: Yes normal to inspection Neck Neck: Yes normal visual inspection, Yes trachea midline and Yes supple Chest Chest palpation & inspection: normal inspection of the chest Resp Effort & Inspection: normal respiratory effort Auscultation: clear to auscultation bilaterally, no crackles, no rales, no rhonchi and no wheezes Cardio Jugular venous distension: no JVD Palpation: normal PMI Rate: regular rate Rhythm: regular rhythm Heart sounds: S1 normal heart sound present, S2 normal heart sound present, no click, no gallops, no murmurs and no rubs Peripheral pulses: Peripheral pulses 2+ throughout GI Inspection: Yes normal to inspection Palpation (GI): Soft to palpation Auscultation: normal bowel sounds Skin General skin exam: no rashes or lesions noted Neuro General: patient oriented x3 Extrem General: Yes normal to inspection, No no pedal edema and No calf tenderness Psych Appearance: grossly normal Mental Status: mental status grossly normal Speech and movement: Normal speech and movement present Office Procedures EKG Details: EKG today showed normal sinus rhythm, rate 84 beats per minute, [place], [place] [id number], Complete Assessment & Plan Assessment & Plan (1) PFO (patent foramen ovale): Code(s): Q21.1 - Atrial septal defect Category: Medical Plan: No specific implications. Discussed pathophysiology in detail. Patient is already on Xarelto for history of DVT and PE. Continue the same and if this was to be stopped in the future, patient can continue with baby aspirin daily. (2) Hypertension: Code(s): I10 - Essential (primary) hypertension Category: Medical Qualifiers: Hypertension type: essential hypertension Qualified Code(s): I10 - Essential (primary) hypertension Plan: Blood pressure today is well-controlled. Advised monitoring at home with a goal less than 130/80. Continue current regimen. (3) Preop cardiovascular exam: Code(s): Z01.810 - Encounter for preprocedural cardiovascular examination Plan: The patient is able to climb up a flight of stairs without experiencing shortness of breath, chest pain, or any other cardiovascular symptoms indicating a functional capacity of at least 4.0 Mets. EKG today is normal sinus rhythm. Given this fact, patient can proceed with upcoming colonoscopy with the consideration that patient is at low cardiovascular risk. Can hold Xarelto for 48 hours prior to surgery and resume soon after as per recommendation of the surgeon. Advised heart healthy diet, regular exercise, losing weight, med compliance, and management of vascular risk factors. Follow up on an as-needed basis. In the interim, patient will call the office with any concerns or change in symptoms. This note was generated using voice recognition software. While every effort has been made to ensure accuracy and proper education rn, there may be occasional errors that could affect the content or meaning of the described symptoms. Orders: Orders AMB EKG-In Office Today Z01.810 - Encounter for preprocedural cardiovascular examination Coding Level of Care Code Est Pt Level 3 (27364) Complex EM visit Add On G2211 Diagnoses PFO (patent foramen ovale) Q21.1 Essential hypertension I10 Hypertension type: essential hypertension Preop cardiovascular exam Z01.810 CPT Codes EKG - CPT: 38633-[id number], Complete ([id number]) Time Spent (min) 29 Comment Time spent in reviewing the chart, test results, assessment, counseling and documentation.
--- OUTSIDE RECORDS SUMMARY | 2025-09-27 15:55 | XMS_ITS | Patient Health Record ---
Author Organization [facility] Address [address] [place] [address] Care Team Providers Care Learning Manager Name Role Phone Lana HUERTA, Denisha Primary Care Provider Tye Rachel Unavailable [phone] Reason For Referral No Information Medications Medication [...] Once a day Active Cholecalciferol 50 MCG (1999) 1 tablet Orally Once a day Active [...] Status Risk Notes Problem Colon cancer screening (301171043) Colon cancer screening (Z12.11) Active confirmed Problem Dysphagia (70662947) Dysphagia (R13.10) Active confirmed Problem Gastroesophageal reflux disease (982440382) Gastroesophageal reflux disease, esophagitis presence not specified (K21.9) Active confirmed Problem Dysphagia (84048139) Pharyngoesophageal dysphagia (R13.14) Active confirmed Vital Signs Blood pressure diastolic 77 mm Hg 04/05/2025 Height 66 in 04/05/2025 Blood pressure systolic 111 mm Hg 04/05/2025 Weight 266 lbs 04/05/2025 BMI 42.93 kg/m2 04/05/2025 Procedures Procedure Date Ordered Date Performed Result Body Sit e UPPER GI ENDOSCOPY BALLOOON DILATION OF ESOPH 04/05/2025 N/A COLONOSCOPY 04/05/2025 N/A Encounters Encounter Location Date Provider Diagnosis [facility] [address] [place] [address] 04/05/2025 Tye Quintanilla Gastroesophageal ref lux disease, [...] Provider Name:Tye Quintanilla , 10/14/2025 09:00:00 AM, [address] [place] [address] , [place], [place], [id number], Insurance Providers Payer Name Payer Address Payer Phone Subscriber Number Group Number Insured Name Patient Relationship to Insured Coverage Start Date Coverage End Date MEDICARE OF [place] [address] [facility] [place] [address] [id number] GUERO CHA Self - patient is the insured 8 MEDICAID OF [facility] [address] [place] [address] [id number] GUERO CHA Self - patient is the insured Medical (General) History Medical History History ICD Code GERD--02/15/2008 EGD --HH, g astric polyps, no esophagitis, no Hussein's--Lap. Phylicia as below Denies MA,DM,CVA,Lung disease,renal dise ase Depression Hyperlipidemia HTN PE and DVT in [facility] 04/01/2016--followed by Dr. Covarrubias ERCP with removal of CBD stone in 11/2017 Neg screening colonoscopy in 01/2015 Right-sided breast cancer 20 25--sees Dr. Torres and Dr. Covarrubias--01/2025 lumpectomy; going to have XRT in summer 2024 Upper endoscopy in 2018 reve aled a small hiatal hernia, her [...] 06/25 12/12 Right hip replacement scheduled at [facility] for 05/15/19 Gastric bypass surgery and H H repair at [facility]--went from 347_# to 217_# 12/2017 Lap cholecystectomy-Dr. Torres 11/2017 Surgery for cervical cancer in her 's D & C LEEP Laparoscopic Hiatal Hernia repair with Hazel Rutherford on 09/26/14
--- OUTSIDE RECORDS SUMMARY | 2025-09-27 15:55 | XMS_ITS | Clinical Summary ---
Author Organization [facility] Address [address] [place] [id number] Phone Care Team Providers Care Still Photographer Name Role Phone Denisha Schwartz MD Primary [...] 5 mg by mouth every evening. Active hydroCHLOROthiazid e 12.5 MG tablet Take 12.5 mg by mouth daily. Active amoxicillin (AMOXIL) 500 MG capsule Take 500 mg by mouth 3 (three) times a day as needed (for dental visits). As needed for dental visits Active fluticasone propionate 50 mcg/actuation diskus inhaler Inhale 1 puff into the lungs 2 (two) times a day. Active multivit-min/iron/ folic acid/K (BARIATRIC MULTIVITAMINS ORAL) Take by mouth. [...] Take 1 tablet by mouth every morning. 5 Active KISQALI 400 mg/day (200 mg x 2) dose pack 5 Active Active Problems Problem Noted Date Diagnosed Date Class 3 severe obesity due t o excess calories with serious comorbidity and body mass index (BMI) of 40.0 to 44.9 in adult 07/11/2025 Malignant neoplasm of upper- outer quadrant of right breast in female, estrogen receptor positive 03/30/2025 Cancer Staging:Pathologic: pT1c, pN0, cM0, ER: Positive, MA: Positive, HER2: Negative - Signed by Kevin Painting MD on 03/30/2025 Encounters Date Type Department Care Team Description 07/26/2025 Orders Only [facility] Rad Onc [address] [place] [address] Destiny Gaytan RN 07/11/2025 4:10 PM EDT Office Visit [facility] [address] [place] [address] Olga Woods MD Encounter for annual routine gynecological examination (Primary Dx); Fungal infection of skin; Class 3 severe obesity due to excess calories with serious comorbidity and body mass index (BMI) of 40.0 to 44.9 in adult 07/05/2025 2:30 PM EDT Telemedicine - audio only [facility] Rad Onc [address] [place] [address] Kevin Painting MD Malignant neoplasm of upper-outer [...] Description 12/29/2025 2:00 PM EST Office Visit [facility] Rad Onc [address] [place] [id number] Kevin Painting MD [address] [place] [address] [email or web address] Health Maintenance Due Date Last Done [...] * Pap Test (07/11/2025 12:00 AM EDT) Report [address] [address] Travograph Operator: Nicola Root MD [employer]OOK[employer] Cytology Report FINAL DIAGNOSIS A. PAP SMEAR (THIN PREP) CE: SPECIMEN ADEQUACY: Satisfactory for evaluation; transformation zone present. INTERPRETATION: NEGATIVE FOR INTRAEPITHELIAL LESION OR MALIGNANCY. This specimen was analyzed by the automated ThinPrep Imaging System ([employer].) and the selected heck were reviewed by a truckload owner operator. Electronically Signed Out By: RUDY Chacon(ASCP) The [...] by real-time polymerase chain reaction (PCR) at [address] using the FDA-approved Spodly Onclarity HPV Assay with extended genotyping. Uses of the assay in scenarios other than those approved by the FDA should be considered off-label use. The accuracy and precision of this test for all other off-label specimen sources has been verified in the Cytopathology Laboratory of the [facility] and has not been cleared or [...] : 1965 (Age: 60) Sex: F Institution: [facility] Location: [facility] Date of Collection: 07/11/2025 Date of Reported: 07/13/2025 15:26 Results to: Olga Woods MD [facility] Final Diagnosis A. PAP SMEAR (THIN PREP) CE: SPECIMEN ADEQUACY: Satisfactory for evaluation; transformation zone present. INTERPRETATION: NEGATIVE FOR INTRAEPITHELIAL LESION OR MALIGNANCY. This specimen was analyzed by the automated ThinPrep Imaging System ([employer].) and the selected heck were reviewed by a truckload owner operator. [facility] Results\Inter pretation A. PAP SMEAR (THIN PREP) CE: High-risk HPV Panel w/ extended genotyping NEG HPV 16-NEG HPV 18-NEG HPV 45-NEG HPV 33/58-NEG HPV 31-NEG HPV 56/59/66-NEG HPV 51-NEG HPV 52-NEG HPV 35/39/68-NEG Performed by real-time polymerase chain reaction (PCR) at [facility], [address] [place] [address] using the FDA-approved Spodly Onclarity HPV Assay with extended genotyping. Uses of the assay in scenarios other than those approved by the FDA should be considered off-label use. The accuracy and precision of this test for all other off-label specimen sources has been verified in the Cytopathology Laboratory of the [facility] and has not been cleared or approved by the U.S. Food and Drug Administration. Clinical correlation is advised. The assay assesses the E6/E7 DNA target and utilizes human beta globin as an internal control. Cytology and HPV testing are screening assays and should not be used as the sole means of detecting cancer. False-positives and false-negatives can occur. [facility] Conversion Type (Conversion Source) 07/11/2025 07/12/2025 9:07 AM EDT us Olga Woods MD CYTOLOGY ORDERABLES Edited Result - Final [facility] [address] [place] [address] * Mammogram Outside (No Interpretation) (01/18/2025 12:00 AM EST) Narrative SYSTEMGENERATED, DOCUMENTATION - 03/29/2025 11:25 AM EDT This study is for PACS storage only and not for interpretation. 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 [place] [address] PCP - General Internal Medicine 03/18/25 Additional Source Comments The information contained in this document represents components of the legal health record. It is not the complete legal health record.[facility]
== END 2025-09-27 14:22 | disposition home or self-care (01) ==
LOC: HO.HCS 13:07
PROVIDERS: PCP Internal Medicine
DX: Q21.10 Atrial septal defect, unspecified (principal); I10 Essential (primary) hypertension; Z01.810 Encounter for preprocedural cardiovascular examination
CPT/HCPCS: 93010; 99213; G2211

== ENCOUNTER → 2025-09-27 13:06 | Outpatient (BNVA) | payer MEDICARE, MEDICAID, SELFPAY | PROVIDERS: PCP Internal Medicine | DX: Z01.810 Encounter for preprocedural cardiovascular examination (principal); I10 Essential (primary) hypertension; Q21.10 Atrial septal defect, unspecified | CPT/HCPCS: 93005; 99212 ==

== ENCOUNTER 2025-10-10 13:16 | Outpatient (REF) | payer MEDICARE, MEDICAID, SELFPAY ==
--- NOTE | ~2025-10-10 | XR_ITS ---
EXAMINATION: XR TEMPOROMANDIBULAR JOINT, BILATERAL CLINICAL INFORMATION: M26.621 - Arthralgia of right temporomandibular joint COMPARISON: None available. TECHNIQUE: Lateral only mild and closed mouth views, bilateral x-rays FINDINGS: Left: With mouth opening, there is physiologic anterior translation of the mandibular condyle. Right: With mouth opening, there is increased anterior translation of the mandibular condyle relative to the temporal bone eminence. Mandibular condyle completely excised the glenoid fossa and abuts the anterior margin of the temporal bone eminence. XR/XR TMJ BI IMPRESSION: Unremarkable left TMJ range of motion. Increased anterior translation of the right mandibular condyle relative to the temporal bone eminence suggests laxity in the joint. Electronically signed by: Royal Slade MD 10/10/2025 03:08 PM GERARDO
--- OUTSIDE RECORDS SUMMARY | 2025-10-11 04:32 | XMS_ITS | Clinical Summary ---
Author Organization [facility] [place] Address [address] [place] [id number] Phone Care Team Providers Care Plumber Supervisor Name Role Phone Denisha Schwartz MD Primary [...] mg/day (200 mg x 2) dose pack Active Active Problems Problem Noted Date Diagnosed Date Class 3 severe obesity due t o excess calories with serious comorbidity and body mass index (BMI) of 40.0 to 44.9 in adult 07/11/2025 Malignant neoplasm of upper- outer quadrant of right breast in female, estrogen receptor positive 03/30/2025 Cancer Staging:Pathologic: pT1c, pN0, cM0, ER: Positive, WI: Positive, HER2: Negative - Signed by Kevin Painting MD on 03/30/2025 Encounters Date Type Department Care Team Description 07/26/2025 Orders Only [facility] Rad Onc [address] [place] [address] Destiny Gaytan RN 07/11/2025 4:10 PM EDT Office Visit [facility] [address] [place] [id number] Olga Woods MD Encounter for annual routine gynecological examination (Primary Dx); Fungal infection of skin; Class 3 severe obesity due to excess calories with serious comorbidity and body mass index (BMI) of 40.0 to 44.9 in adult from Last 3 Months Family History Medical [...] Description 12/29/2025 2:00 PM EST Office Visit [facility] Rad Onc [address] [place] [id number] Kevin Painting MD [address] [place] [address] [email or web address] Health Maintenance Due Date Last Done Comments [...] on patient's age to complete this topic IPV VACCINES Aged Out No longer eligi ble [...] Pap Test (07/11/2025 12:00 AM EDT) Report [address] [address] Solar Installation Manager: Nicola Root MD [employer] Cytology Report FINAL DIAGNOSIS A. PAP SMEAR (THIN PREP) CE: SPECIMEN ADEQUACY: Satisfactory for evaluation; transformation zone present. INTERPRETATION: NEGATIVE FOR INTRAEPITHELIAL LESION OR MALIGNANCY. This specimen was analyzed by the automated ThinPrep Imaging System ([employer] and the selected heck were reviewed by a ct scan technician. Electronically Signed Out By: RUDY Chacon(ASCP) The [...] by real-time polymerase chain reaction (PCR) at [address] using the FDA-approved [employer] Onclarity HPV Assay with extended genotyping. Uses of the assay in scenarios other than those approved by the FDA should be considered off-label use. The accuracy and precision of this test for all other off-label specimen sources has been verified in the Cytopathology Laboratory of the [facility] and has not been cleared [...] PAP SMEAR (THIN PREP) CE Patient Name: NADINE CLIFFORD : 1965 (Age: 60) Sex: F Institution: [facility] Location: [facility] Date of Collection: 07/11/2025 Date of Reported: 07/13/2025 15:26 Results to: Olga Woods MD [facility] Final Diagnosis A. PAP SMEAR (THIN PREP) CE: SPECIMEN ADEQUACY: Satisfactory for evaluation; transformation zone present. INTERPRETATION: NEGATIVE FOR INTRAEPITHELIAL LESION OR MALIGNANCY. This specimen was analyzed by the automated ThinPrep Imaging System ([employer] and the selected heck were reviewed by a ct scan technician. [facility] Results\Inter pretation A. PAP SMEAR (THIN PREP) CE: High-risk HPV Panel w/ extended genotyping NEG HPV 16-NEG HPV 18-NEG HPV 45-NEG HPV 33/58-NEG HPV 31-NEG HPV 56/59/66-NEG HPV 51-NEG HPV 52-NEG HPV 35/39/68-NEG Performed by real-time polymerase chain reaction (PCR) at [facility], [address] [place] [address] using the FDA-approved [employer] Onclarity HPV Assay with extended genotyping. Uses of the assay in scenarios other than those approved by the FDA should be considered off-label use. The accuracy and precision of this test for all other off-label specimen sources has been verified in the Cytopathology Laboratory of the [facility] and has not been cleared or approved by the U.S. Food and Drug Administration. Clinical correlation is advised. The assay assesses the E6/E7 DNA target and utilizes human beta globin as an internal control. Cytology and HPV testing are screening assays and should not be used as the sole means of detecting cancer. False-positives and false-negatives can occur. [facility] Conversion Type (Conversion Source) 07/11/2025 07/12/2025 9:07 AM EDT us Olga Woods MD CYTOLOGY ORDERABLES Edited Result - Final Performing Organization Address City/State/[facility] Co de Phone Number [address] [address] * Mammogram Outside (No Interpretation) (01/18/2025 12:00 [...] [place] & B MEDICARE PART A & B HEALTH MEDICARE PART [place] & [place] Advance Directives For more information, please contact: [phone] (9AM - 5PM [place]/[facility], Friday-Friday) Documents on File Type Date Recorded Patient Engineering Program Analyst Expl anation Healthcare Proxy 03/29/2025 03/29/25 [facility] Care Teams Plumber Supervisor Relationship Specialty Start Date End Date Denisha Schwartz MD [address] [place] [address] PCP - General Internal Medicine 03/18/25 Additional Source Comments The information contained in this document represents components of the legal health record. It is not the complete legal health record.[facility] [place]
--- OUTSIDE RECORDS SUMMARY | 2025-10-11 04:33 | XMS_ITS | Patient Health Record ---
Author Organization [facility] Address [address] [place] [address] Care Team Providers Care Estimator Binding Name Role Phone Lana HUERTA, Denisha Primary Care Provider Tye Rachel [phone] Reason For Referral No Information Medications Medication SIG (Take, Route, Frequency, Duration) Notes Start Date End Date Status Famotidine 40 MG Tablet 1 tablet Orally Once a day Active Fiber - Tablet as directed Orally prn Active oxyCODONE HCl 5 MG Tablet 1 tablet as ne eded Orally every 6 hrs Active Vitamin D3 Gummies Adult Active FLUoxetine HCl 40 MG Capsule 1 capsule O rally Once a day Active Fluoxetine 30 mg one tablet orally once a day Active Ferretts 325 (106 Fe) MG Tablet 1 tablet Orally Three times a Week Active Pantoprazole Sodium 40 MG Tablet Delayed Release 1 tablet Orally Once a day Active hydroCHLOROthiazide 12.5 MG Capsule 1 capsule Orally three times a week For edema Active Fluticasone Propionate (Inhal) 50 MCG/ACT Aerosol Powder Breath Activated 1 puff Inhalation Twice a day Active Multi Vitamin/Minerals Tablet Orally Active traZODone HCl 50 MG Tablet 1 tablet at b edtime as needed Orally Once a day Active buPROPion HBr ER 174 MG Tablet Extended Release 24 Hour 1 tablet in the morning Orally Once a day Active Levocetirizine Dihydrochloride 5 MG Tablet 1 tablet in the evening Orally Once a day Active Cholecalciferol 50 MCG (2000 UT) Tablet 1 tablet Orally Once a day Active Wegovy 1 MG/0.5ML Solution Auto-injector 0.5 mL Subcutaneous Active Calcium Citrate + D3 315-6.25 MG-MCG Tablet 1 tablet Orally Twice a day Active Cyclobenzaprine HCl 10 MG Tablet 1 tablet at bedtime as needed Orally Once a day Active Xarelto 10 MG Tablet 1 tablet with food Orally Once a day Active Clotrimazole 1 % Cream 1 application Externally Twice a day Active Rosuvastatin Calcium 5 MG Tablet 1 tablet Orally Once a day Active Immunizations Vaccine Route Administration Date Status Comme nts Influenza Unknown 07/25/2018 Administered Social History Social History Additional Details Category Social Info Options Details Miscellaneous: Marital status: single 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 Section Notes: Nonsmoker; no sig alcohol Nonsmoker; no sig alcohol Nonsmoker; no sig alcohol Problems Problem Type SNOMED Code ICD Code Onset Dates Problem Status W/U Status Risk Notes Problem Colon cancer screening (216236729) Colon cancer screening (Z12.11) Active confirmed Problem Dysphagia (54932434) Dysphagia (R13.10) Active confirmed Problem Gastroesophageal reflux disease (059593888) Gastroesophageal reflux disease, esophagitis presence not specified (K21.9) Active confirmed Problem Dysphagia (44106858) Pharyngoesophageal dysphagia (R13.14) Active confirmed Vital Signs Blood pressure diastolic 77 mm Hg 04/05/2025 Height 66 in 04/05/2025 Blood pressure systolic 111 mm Hg 04/05/2025 Weight 266 lbs 04/05/2025 BMI 42.93 kg/m2 04/05/2025 Procedures Procedure Date Ordered Date Performed Result Body Sit e UPPER GI ENDOSCOPY BALLOOON DILATION OF ESOPH 04/05/2025 N/A COLONOSCOPY 04/05/2025 N/A Encounters Encounter Location Date Provider Diagnosis [facility] [address] [place] [address] 04/05/2025 Tye Quintanilla Gastroesophageal ref lux disease, [...] Provider Name:Tye Quintanilla , 10/14/2025 09:00:00 AM, [address] [place] [address] , [place], [place], [id number], Insurance Providers Payer Name Payer Address Payer Phone Subscriber Number Group Number Insured Name Patient Relationship to Insured Coverage Start Date Coverage End Date MEDICARE OF [place] [address] [facility] [place] [address] [id number] GUERO CHA Self - patient is the insured 8 MEDICAID OF [facility] [address] [place] [address] [id number] GUERO CHA Self - patient is the insured Medical (General) History Medical History History ICD Code GERD--02/15/2008 EGD --HH, g astric polyps, no esophagitis, no Hussein's--Lap. Phylicia as below Denies NC,DM,CVA,Lung disease,renal dise ase Depression Hyperlipidemia HTN PE [...] esophageal stricture noted. Surgical History Surgery Date(Month/Year) Laparoscopic Hiatal Hernia repair with Hazel Rutherford on 09/26/14 LEEP D & C Surgery for cervical cancer in her 20's Lap cholecystectomy-Dr. Torres 11/2017 Gastric bypass surgery and H H repair at [facility]--went from [id number]_# to 217_# 12/2017 Right hip replacement scheduled at [facility] for 05/15/19 Right knee replacement scheduled for 06/25 12/12 Left knee replacement scheduled for 08/25 019 Umbilical hernia x2 Lumpectomy as above 2024
== END 2025-10-10 13:17 | disposition home or self-care (01) ==
LOC: HO.HMGCX 13:16
PROVIDERS: PCP Internal Medicine; Visit Provider Internal Medicine
DX: M26.621 Arthralgia of right temporomandibular joint (principal); Z86.718 Personal history of other venous thrombosis and embolism; Z86.711 Personal history of pulmonary embolism
CPT/HCPCS: 70330; 96127; 99212

== ENCOUNTER 2025-10-10 13:16 | Outpatient (AMB) | payer MEDICARE, MEDICAID, SELFPAY ==
[2025-10-10 13:42] VITALS: BP 136/80; PULSE 83; RESP 16; TEMP 36.7; O2SAT 98; BMI 41.2
--- NOTE | 2025-10-10 13:42 | A.OFFPC_ITS ---
Vital Signs 10/10/25 13:42 Height 5 ft 8 in Weight 271 lb BMI 41.2 BP 136/80 Blood Pressure Location Lt brachial Position Sitting Respiration 16 Pulse 83 Pulse Source Pulse Oximeter Temp 98.0 F Temp Source Oral Pulse Oximetry (%) 98 Oxygen Delivery Method Room Air Intake Visit Reasons: right jaw pain/letter Intake Note: Pt is here today c/o right jaw pain/letter for dentist for mouth guard Consulting Technical Director Required: No Allergies No Known Allergies Allergy (Verified 10/16/25 22:56) Medication List - Last Reconciled 10/16/25 by Denisha Schwartz MD bupropion HCl XL 150 mg PO QAM calcium citrate-vitamin D3 315 mg-5 mcg (200 unit) 1 tab PO BID cholecalciferol (vitamin D3) 50 mcg PO DAILY clotrimazole-betamethasone 1-0.05 % 1 appl topical BID 10 days cyclobenzaprine 10 mg PO BEDTIME PRN famotidine 40 mg PO DAILY ferrous fumarate 324 mg PO 3XW fluoxetine 40 mg PO DAILY fluticasone propionate 50 mcg/actuation 1 spray intranasal DAILY hydrochlorothiazide 12.5 mg PO levocetirizine 5 mg PO DAILY hdrgovsfuwib-pjq-wrqz-FA-vit K 45 mg iron- 800 mcg-120 mcg (Bariatric Multivitamins) 45 caps PO DAILY oxycodone 5 mg PO Q6-8H PRN pantoprazole 40 mg PO DAILY rivaroxaban (Xarelto) 10 mg PO DAILY rosuvastatin 5 mg PO DAILY semaglutide (weight loss) (Wegovy) 1 mg subcut QWEEK trazodone 50 - 100 mg PO BEDTIME PRN Tobacco use date assessed: 10/10/25 Dental Screening Dental Screen Date: 10/10/25 Did you have a dental visit in the last 12 months?: Yes Did you have a dental problem in the last 6 months where you did not have access to dental care?: No Was dental information given to patient?: Patient has dentist HPI right jaw pain/letter HPI Details 60 year-old lady with past medical histo ry significant for pulmonary embolism right DVT currently on Xarelto, recently diagnosed with breast cancer, currently on letrozole, has osteoarthritis, depression, hypertension, hyperlipidemia, seasonal allergies, morbid obesity status post gastric bypass, complaining of right jaw pain due to bruxism.. 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 She is here requesting a letter to be written her insurance to see if they would agree to cover it as it has been goes in severe distress, with problems sleeping and chewing due to the pain in her right jaw. [facility] Medical History Hx of radiation therapy Breast cancer DVT (deep venous thrombosis) Umbilical hernia Uterine fibroid Cervical dysplasia Primary osteoarthritis of both knees Pulmonary embolism Seasonal allergies Steatosis, liver History of pulmonary embolism Osteoarthritis Depression Gastric reflux Hiatal hernia Hypertension Hyperlipidemia Surgical History History of left knee replacement Hx of dilation and curettage History of repair of hiatal hernia History of esophagogastroduodenoscopy (EGD) H/O colonoscopy History of ERCP History of lumpectomy of right breast (02/03/25) S/P gastric bypass Status post right knee replacement History of right hip replacement H/O bariatric surgery History of cholecystectomy H/O umbilical hernia repair Family History Father Mental health disorder Sister Lymph node cancer Mental health disorder Thyroid disorder Mother Lymph node cancer Mental health disorder Mother Tumor Brother Substance use disorder Social History Household Members: Spouse Housing: Apartment Are you a primary animal care technician to a significant other at home: No Do you presently have visiting nurse or other home services: No Alcohol intake: current Alcohol intake frequency: holidays/special occasions only Patient Tobacco Use Status: Never used Tobacco e-Cigarette/Vaping Use: Never Used Use of substances other than those prescribed or required for medical reasons: No Advance Directives: No Advance Directives Information Provided: Yes service: No Current occupational status: unemployed and disabled Gender identity: Female Cognitive needs: No Hearing needs: No Vision needs: Yes Female Reproductive History Menstrual Age of Menarche: 12 Questionnaire PHQ-9 Over the last 2 weeks, how often have you been bothered by any of the following problems? 1. Little interest or pleasure in doing things: several days 2. Feeling down, depressed, or hopeless: several days 3. Trouble falling or staying asleep, or sleeping too much: more than half the days 4. Feeling tired or having little energy: more than half the days 5. Poor appetite or overeating: several days 6. Feeling bad about yourself - or that you are a failure or have let yourself or your family down: several days 7. Trouble concentrating on things, such as reading the newspaper or watching television: several days 8. Moving or speaking so slowly that other people could have noticed. Or the opposite - being so fidgety or restless that you have been moving around a lot more than usual: not at all 9. Thoughts that you would be better off or of hurting yourself in some way : not at all Total score: 9 Depression Screening Interpretation: Positive (Currently on fluoxetine and bupropion, followed by therapist and psychiatry Jose L Rodriguez at [facility] in [place]) Depression Screening Follow-up: Existing condition, In treatment and Community Mental Health Worker F/U Depression Screening Done: Yes Source: Developed by Drs. Tye May, Courtney Bolaños, Lee Candelaria and colleagues, with an educational joann from [employer]. Thrive Questionnaire Date Thrive assessed: 01/11/25 I am a: Patient What is your living situation today?: I have a place to live, but I am worried about losing it in the future Within the past 12 months, did the food you bought not last and you didn't have the money to get more?: Sometimes True Within the past 12 months, did you worry whether your food would run out before you got money to buy more?: Often true Do you have trouble paying for medicines?: Yes Do you have trouble getting transportation to medical appointments?: Yes Do you have trouble paying your heating and electricity bill?: Yes Do you have trouble taking care of your child, family member or friend?: No Do you have trouble with day-to-day activities such as bathing, preparing meals, shopping, managing finances, etc.?: Yes Are you currently unemployed and looking for a job?: Yes Are you interested in more education?: No Currently or been in a relationship where the following occur: No concerns reported THRIVE Score: 5 AUDIT C Alcohol Use Questionnaire (AUDIT-C) 1. How often do you have a drink containing alcohol?: Monthly or less 2. How many drinks containing alcohol do you have on a typical day when you are drinking?: 1 or 2 3. How often do you have six or more drinks on one occasion?: Never Total Score: 1 ENDY-7 AMB Questionnaire ENDY-7 Date ENDY - 7 assessed: 08/02/25 Source: Developed by Drs. Tye May, Courtney Bolaños, Lee Candelaria and colleagues, with an educational joann from [employer]. Review of Systems Const Denies daytime sleepiness, Denies snoring, Denies stops breathing during sleep and Denies weakness ENT Reports as per HPI Card Denies irregular heart rhythm, Denies leg edema, Denies lightheadedness and Denies dyspnea Resp Denies cough, Denies dyspnea and Denies snoring GI Reports no additional complaints Musc Reports as per HPI, Denies abnormal gait, Denies muscle weakness and Denies numbness Skin/Breast Denies lesions and Denies rash Neuro Denies abnormal gait, Denies numbness and Denies weakness Psych Reports no additional complaints Physical exam (Primary Care) Vital Signs: Last Vital Signs Temp 98.0 F 10/10/25 13:42 Pulse 83 10/10/25 13:42 Resp 16 10/10/25 13:42 BP 136/80 10/10/25 13:42 Pulse Ox 98 10/10/25 13:42 Oxygen Delivery Method Room Air 10/10/25 13:42 BMI result Body Mass Index 41.2 Tobacco/Smoking Status: Tobacco use Status Tobacco use date assessed 10/10/25 10/10/25 14:03 Patient Tobacco Use Status Never used Tobacco 10/10/25 13:44 e-Cigarette/Vaping Use Never Used 10/10/25 13:44 Depression Screening Interpretation: Positive (Currently on fluoxetine and bupropion, followed by therapist and psychiatry Jose L Rodriguez at [facility] in [place]) Depression Screening Follow-up: Existing condition, In treatment and Community Mental Health Worker F/U Thrive Assessment: Date of Thrive Assessment Date Thrive assessed 01/11/25 10/10/25 13:44 Currently or been in a relationship where the following occur: No concerns reported Const Other: Obese, Alert oriented x3, ambulatory with normal gait HENMT Face and sinus: Yes Facial tenderness on exam of face and sinuses (right TMJ) Mouth: moist mucous membranes Neck Other: Supple, no lymphadenopathy thyroid gland nonpalpable Resp Auscultation: clear to auscultation bilaterally Cardio Other: S1-S2 present regular rate and rhythm GI Other: Obese, soft, nontender with no mass palpated Skin General skin exam: no rashes or lesions noted Neuro General: gait normal, tone normal, moves all extremities and no focal motor deficits Extrem General: Yes full ROM, Yes no clubbing, cyanosis or edema and Yes normal gait Psych Appearance: grossly normal and well kempt Mental Status: mental status grossly normal Speech and movement: Normal speech and movement present Affect: normal affect Coding Level of Care Code Est Pt Level 4 (81993) Diagnoses Arthralgia of right temporomandibular joint M26.621 Assessment & Plan Assessment & Plan (1) Arthralgia of right temporomandibular joint: Code(s): M26.621 - Arthralgia of right temporomandibular joint Plan: Ordered x-ray of TMJ bilaterally. Advised to try massaging Advil ointment to affected area on right. Will refer to physical therapy is any abnormality noted on x-ray or may respond to oral surgeon for further evaluation management. Letter written to her dentist at [facility] , Dr Smith Orders: Orders XR TMJ BI 10/10/25 M26.621 - Arthralgia of right temporomandibular joint
== END 2025-10-10 15:05 | disposition home or self-care (01) ==
LOC: HO.HMCC 13:17
PROVIDERS: PCP Internal Medicine; Visit Provider Internal Medicine
DX: M26.621 Arthralgia of right temporomandibular joint (principal)

== ENCOUNTER → 2025-10-10 14:34 | Outpatient (BNV) | payer MEDICARE, MEDICAID, SELFPAY | PROVIDERS: PCP Internal Medicine; Visit Provider Radiology Diagnostic Radiology | DX: M26.621 Arthralgia of right temporomandibular joint (principal) | CPT/HCPCS: 70330 ==

== ENCOUNTER 2025-10-14 07:52 | Day surgery (SDC) | payer MEDICARE, MEDICAID, SELFPAY ==
--- NOTE | 2025-10-11 13:21 | HO.ANESPROP2 ---
Documented by User: Linda Bazan NP 10/12/25 09:18 HPI - Anesthesia Eval Consult details Narrative: 60yo F for Upper Endoscopy with Balloon Dilitation, Colonoscopy Cardiac optimized. Preop risk stratify with [facility] Cardiology. PFO - no specific treatment as pt is on Xarelto for DVT/PE Hx DVT/PE - follows [facility] heme. Xarelto for secondary prevention d/t sedentary lifestyle s/p breast lumpectomy 01/2025 with GA-ETT 7.5 Anesthesia Pre-Procedure Meds Is the patient on any of the following meds?: GLP1/DPP4 (? wegovy) PMFSH Active Problems Active Problems: All Active Problems Encounter for postoperative wound check (Acute) Invasive ductal carcinoma of right breast (Acute) Abnormal mammogram of right breast (Acute) Abnormal ultrasound of breast (Acute) Swelling of lower leg (Acute) Morbid obesity (Acute) Atrial septal aneurysm (Acute) PFO (patent foramen ovale) (Acute) S/P gastric bypass (Acute) History of pulmonary embolism (Acute) Hiatal hernia (Acute) Primary osteoarthritis of both knees (Acute) Depression (Acute) Seasonal allergies (Acute) Hypertension (Acute) Hyperlipidemia (Acute) Past Medical History Medical History Hx of radiation therapy Breast cancer DVT (deep venous thrombosis) Umbilical hernia Uterine fibroid Cervical dysplasia Primary osteoarthritis of both knees Pulmonary embolism Seasonal allergies Steatosis, liver History of pulmonary embolism Osteoarthritis Depression Gastric reflux Hiatal hernia Hypertension Hyperlipidemia Family History Family History Father Mental health disorder Sister Lymph node cancer Mental health disorder Thyroid disorder Mother Lymph node cancer Mental health disorder Mother Tumor Brother Substance use disorder Surgical History Surgical History History of left knee replacement Hx of dilation and curettage History of repair of hiatal hernia History of esophagogastroduodenoscopy (EGD) H/O colonoscopy History of ERCP History of lumpectomy of right breast (02/03/25) S/P gastric bypass Status post right knee replacement History of right hip replacement H/O bariatric surgery History of cholecystectomy H/O umbilical hernia repair History of Problems with Anesthesia: No Social History Social History Household Members: Spouse Housing: Apartment Are you a primary home care consultant to a significant other at home: No Do you presently have visiting nurse or other home services: No Alcohol intake: current Alcohol intake frequency: holidays/special occasions only Patient Tobacco Use Status: Never used Tobacco e-Cigarette/Vaping Use: Never Used Use of substances other than those prescribed or required for medical reasons: No Advance Directives: No Advance Directives Information Provided: Yes service: No Current occupational status: unemployed and disabled Gender identity: Female Cognitive needs: No Hearing needs: No Vision needs: Yes Meds Allergies Allergy/AdvReac Type Severity Reaction Status Date / Time No Known Allergies Allergy Verified 10/10/25 13:57 Home Medications ?Medication ?Instructions ?Recorded ?Confirmed ?Last Taken ?Type cholecalciferol (vitamin D3) 50 50 mcg PO DAILY 06/05/22 10/12/25 02/03/25 History mcg (2,000 unit) capsule hefjwcek-gbilbtlu-rpbo 45 mg-folic 45 cap PO DAILY 07/23/24 10/12/25 Unknown History acid 800 mcg-vit K 120 mcg capsule (Bariatric Multivitamins) fluoxetine 40 mg capsule 40 mg PO DAILY 09/22/24 10/12/25 02/03/25 History bupropion HCl 150 mg 24 hr tablet, 150 mg PO QAM 11/15/24 10/12/25 02/03/25 History extended release cyclobenzaprine 10 mg tablet 10 mg PO BEDTIME PRN Muscle Spasm 10/12/25 10/12/25 Unknown History ferrous fumarate 324 mg (106 mg 324 mg PO 3XW 10/12/25 10/12/25 Unknown History iron) tablet fluticasone propionate 50 1 spray intranasal DAILY 10/12/25 10/12/25 Unknown History mcg/actuation nasal spray,suspension hydrochlorothiazide 12.5 mg tablet 12.5 mg PO swelling 10/12/25 Unknown History levocetirizine 5 mg tablet 5 mg PO DAILY 10/12/25 10/12/25 Unknown History oxycodone 5 mg tablet 5 mg PO Q6-8H PRN Pain 10/12/25 10/12/25 Unknown History pantoprazole 40 mg tablet,delayed 40 mg PO DAILY 10/12/25 10/12/25 Unknown History release semaglutide (weight loss) 1 mg/0.5 1 mg subcut QWEEK 10/12/25 10/12/25 Unknown History mL subcutaneous pen injector (Wegovy) trazodone 50 mg tablet 50 - 100 mg PO BEDTIME PRN insomnia 10/12/25 10/12/25 Unknown History Exam Pertinent Lab Results Pertinent Lab Results: Laboratory Tests 09/20/25 14:57 WBC 5.2 Hgb 13.3 Hct 39.3 Plt Count 465 H D Sodium 140 Potassium 4.6 Chloride 110 H Carbon Dioxide 23 BUN 18 H Creatinine 0.95 Narrative Narrative: EKG 09/2025 EKG Details: EKG today showed normal sinus rhythm, rate 84 beats per minute, normal AR, corrected QT. Assessment and Plan Assessment Anesthesia Assessment: Chart Reviewed Final Anesthetic Review History of Problems with Anesthesia: No Documented by User: Haris Damian MD 10/14/25 08:55 PMFSH Past Medical History Medical History Hx of radiation therapy Breast cancer DVT (deep venous thrombosis) Umbilical hernia Uterine fibroid Cervical dysplasia Primary osteoarthritis of both knees Pulmonary embolism Seasonal allergies Steatosis, liver History of pulmonary embolism Osteoarthritis Depression Gastric reflux Hiatal hernia Hypertension Hyperlipidemia Functional capacity: independent ambulation Family History Family History Father Mental health disorder Sister Lymph node cancer Mental health disorder Thyroid disorder Mother Lymph node cancer Mental health disorder Mother Tumor Brother Substance use disorder Family history of problems with anesthesia: No Surgical History Surgical History History of left knee replacement Hx of dilation and curettage History of repair of hiatal hernia History of esophagogastroduodenoscopy (EGD) H/O colonoscopy History of ERCP History of lumpectomy of right breast (02/03/25) S/P gastric bypass Status post right knee replacement History of right hip replacement H/O bariatric surgery History of cholecystectomy H/O umbilical hernia repair Social History Social History Household Members: Spouse Housing: Apartment Are you a primary home care consultant to a significant other at home: No Do you presently have visiting nurse or other home services: No Alcohol intake: current Alcohol intake frequency: holidays/special occasions only Patient Tobacco Use Status: Never used Tobacco e-Cigarette/Vaping Use: Never Used Use of substances other than those prescribed or required for medical reasons: No Advance Directives: No Advance Directives Information Provided: Yes service: No Current occupational status: unemployed and disabled Gender identity: Female Cognitive needs: No Hearing needs: No Vision needs: Yes Meds Allergies Allergy/AdvReac Type Severity Reaction Status Date / Time No Known Allergies Allergy Verified 10/10/25 13:57 Home Medications ?Medication ?Instructions ?Recorded ?Confirmed ?Last Taken ?Type cholecalciferol (vitamin D3) 50 50 mcg PO DAILY 06/05/22 10/12/25 02/03/25 History mcg (2,000 unit) capsule bmrilpyq-xrvibwnz-qmxl 45 mg-folic 45 cap PO DAILY 07/23/24 10/12/25 Unknown History acid 800 mcg-vit K 120 mcg capsule (Bariatric Multivitamins) fluoxetine 40 mg capsule 40 mg PO DAILY 09/22/24 10/12/25 02/03/25 History bupropion HCl 150 mg 24 hr tablet, 150 mg PO QAM 11/15/24 10/12/25 02/03/25 History extended release cyclobenzaprine 10 mg tablet 10 mg PO BEDTIME PRN Muscle Spasm 10/12/25 10/12/25 Unknown History ferrous fumarate 324 mg (106 mg 324 mg PO 3XW 10/12/25 10/12/25 Unknown History iron) tablet fluticasone propionate 50 1 spray intranasal DAILY 10/12/25 10/12/25 Unknown History mcg/actuation nasal spray,suspension hydrochlorothiazide 12.5 mg tablet 12.5 mg PO swelling 10/12/25 Unknown History levocetirizine 5 mg tablet 5 mg PO DAILY 10/12/25 10/12/25 Unknown History oxycodone 5 mg tablet 5 mg PO Q6-8H PRN Pain 10/12/25 10/12/25 Unknown History pantoprazole 40 mg tablet,delayed 40 mg PO DAILY 10/12/25 10/12/25 Unknown History release semaglutide (weight loss) 1 mg/0.5 1 mg subcut QWEEK 10/12/25 10/12/25 Unknown History mL subcutaneous pen injector (Wegovy) trazodone 50 mg tablet 50 - 100 mg PO BEDTIME PRN insomnia 10/12/25 10/12/25 Unknown History Exam Exam Date and Time: 10/14/2025 Airway TM Dist: >3cm Neck ROM: Full Loose/Missing/Broken Teeth: No Heart: normal Lungs: normal Other: normal Assessment and Plan Assessment Anesthesia Assessment: Anesthesia Plan Discussed Final Anesthetic Review Family History of Problems with Anesthesia: No NPO: Yes ASA Class: III Final Preanesthetic Review: No Changes in Pt Med Stat, Meds/Allgs Chart Reviewed, Consent Obtained/Reviewed and Anes Risks/Benef Reviewed Patient Risk: Intermediate Procedure Risk: Low Anesthetic Plan Anesthetic Plan: MAC: Disposition: Standard PACU
[2025-10-12 14:54] VITALS: BMI 41.2
[2025-10-14 08:16] VITALS: BMI 41.1
[2025-10-14] MEDS: Lactated Ringers 1,000 ML 100 ML IVCONT (08:44)
--- NOTE | 2025-10-14 10:25 | PM.OP ---
Brief Operative Note Date of Service: 10/14/25 Pre-op diagnosis: GERD, Dysphagia, Screening Post-op diagnosis: other (Hiatal hernia, R/O EoE, Colon polyp) Procedure: EGD with biopsies and Balloon Dilation, Colonoscopy to the cecum with hot snare polypectomy x 1 and placement of 1 Resolution clip Surgeon: Tye Quintanilla MD Anesthesia: MAC Was an Corking Machine Operator used for this Procedure?: No Estimated blood loss (mL): 2.0 Pathology: other (A. Esophagus 20-25cm B. Polyp at 30cm) Condition: stable Disposition: PACU
[2025-10-14 10:27] VITALS: BP 99/57; PULSE 80; RESP 14; TEMP 36.1; O2SAT 96
[2025-10-14 10:42] VITALS: BP 136/82; PULSE 73; RESP 17; TEMP 36.4; O2SAT 96
--- NOTE | 2025-10-14 13:38 | OP_ITS ---
DATE OF SERVICE: 10/14/2025 SURGEON: Tye Quintanilla MD INDICATIONS: The patient presents for evaluation of gastroesophageal reflux, dysphagia, and colorectal cancer screening. Full consent has been obtained from her for both procedures, including risks of bleeding and perforation. PREOPERATIVE DIAGNOSIS: POSTOPERATIVE DIAGNOSIS: PROCEDURE PERFORMED: ESTIMATED BLOOD LOSS: COMPLICATIONS: ANESTHESIA: Medication used, monitored anesthesia care. ASSISTANTS: SPECIMENS: PREOPERATIVE DIAGNOSES: Gastroesophageal reflux, dysphagia, and colorectal cancer screening. POSTOPERATIVE DIAGNOSES: Gastroesophageal reflux, dysphagia, and colorectal cancer screening, hiatal hernia, rule out eosinophilic esophagitis, colon polyp, diverticulosis, and internal hemorrhoids. PROCEDURES PERFORMED: Esophagogastroduodenoscopy with balloon dilation and biopsies and colonoscopy to the cecum with hot snare polypectomy and placement of 1 resolution clip. DESCRIPTION OF PROCEDURE: The patient was placed in the left lateral decubitus position. The Olympus video gastroscope was passed in the posterior oropharynx and upper esophagus under direct vision. The scope was passed slowly to the distal esophagus. The gastroesophageal junction appeared at 32 cm. There was no sign of any esophagitis nor Hussein's esophagus. The scope easily entered the stomach. There was a small hiatal hernia and a small gastric remnant with the anastomosis seen at 35 cm. The small bowel was cannulated for least 10 to 20 cm and appeared normal. The scope was withdrawn back in the gastric remnant. The anastomosis appeared normal. The scope was able to be retroflexed in the remnant and this proximal stomach area appeared normal. There was no mass or ulceration. The scope was straightened. The scope was withdrawn back in the esophagus. I did use a [employer] incremental esophageal balloon to dilate the gastroesophageal junction from 19 mm to 20 mm at the recommended pressure for between 30 and 60 seconds each. There was no appreciable change to the EG Junction or any appreciable heme after the dilation. The scope was withdrawn through the remainder of the esophagus, which appeared normal. Biopsies were obtained in the very proximal esophagus to rule out eosinophilic esophagitis. There were no rings nor webs. The scope was withdrawn from the patient and she was turned around for the colonoscopy. The digital rectal exam revealed no abnormalities. The Olympus video pediatric colonoscope was entered into the rectum and advanced to the cecum with the assistance of abdominal wall pressure. Once in the cecum, I did identify normal-appearing cecal pouch with appendiceal orifice and a normal-appearing ileocecal valve. The entire cecum and ileocecal valve appeared normal. The appendiceal orifice appeared normal. The scope was slowly withdrawn, assessing all mucosal surfaces carefully. Preparation was excellent. At 30 cm was an approximately 10 mm polyp, which was removed by hot snare polypectomy and recovered by suction. The polypectomy site appeared clean, without any sign of residual polyp nor bleeding. A single resolution clip was applied to the polypectomy site with good deployment and good hemostasis. I did not visualize any other polyps, colitis, nor angiodysplasia. There was a moderate amount of sigmoid diverticulosis. In the rectum, scope was retroflexed visualizing internal hemorrhoids, but no other pathology. The rectal mucosa appeared normal. The scope was straightened and withdrawn from the patient. She tolerated the procedure well and was returned to the recovery area in stable condition. IMPRESSION: 1. Small hiatal hernia, status post balloon dilation of gastroesophageal junction. 2. Rule out eosinophilic esophagitis. 3. Normal gastric bypass anastomosis and small bowel. 4. Colon polyp. 5. Diverticulosis. 6. Internal hemorrhoids. PLAN: The results of the pathology will be checked. If the colon polyp is a tubular adenoma, I would recommend a followup coloscopy in 5 years. If it is only hyperplastic, I would recommend a followup coloscopy in 10 years. She was advised to resume her blood thinner in 48 hours. She was advised to stay off all aspirin and NSAIDs while on the blood thinner. She was advised to continue to eat small meals and carefully in regard to her symptoms of reflux given the small gastric remnant after her gastric bypass. She will otherwise see me on a p.r.n. basis. MD MCKAYLA Blanco/KAIA / [phone] ANDRZEJ
== END 2025-10-14 11:17 | disposition home or self-care (01) ==
PROVIDERS: PCP Internal Medicine; Visit Provider Internal Medicine
PROC: (CPT 45385; principal; 2025-10-14 09:00)
PROC: 0DJD8ZZ Inspection of Lower Intestinal Tract, Via Natural or Artificial Opening Endoscopic (ICD-10-PCS; CPT 45378; 2025-10-14 09:00)
DX: Z12.11 Encounter for screening for malignant neoplasm of colon (principal); K21.9 Gastro-esophageal reflux disease without esophagitis; R13.10 Dysphagia, unspecified; K57.30 Diverticulosis of large intestine without perforation or abscess without bleeding; K64.8 Other hemorrhoids; K44.9 Diaphragmatic hernia without obstruction or gangrene; D12.5 Benign neoplasm of sigmoid colon
CPT/HCPCS: 45385; 43239; 43249; 88305; C1726; J2003; J2704; J3010

== ENCOUNTER 2025-10-29 08:27 | Outpatient (REF) | payer MEDICARE, MEDICAID, SELFPAY ==
--- OUTSIDE RECORDS SUMMARY | 2025-10-29 08:29 | XMS_ITS | Clinical Summary ---
Author Organization [facility] Address [address] [place] [address] Phone Care Team Providers Care Gerontology Aide Name Role Phone Denisha Schwartz MD Primary [...] Take 1 tablet by mouth every morning. Active KISQALI 400 mg/day (200 mg x [...] Cancer Staging:Pathologic: pT1c, pN0, cM0, ER: Positive, WV: Positive, HER2: Negative - Signed by Kevin Painting MD on 03/30/2025 Family History Medical History Relation Comments Cancer [...] Description 12/29/2025 2:00 PM EST Office Visit [facility] Rad Onc [address] [place] [phone] Kevin Painting MD [address], [place] [id number] [email or web address] Health Maintenance Due Date Last Done [...] INFLUENZA VACCINE (#1) 2025 COVID-19 VACCINE ( - season) 2025 MAMMOGRAM 01/18/2027 01/18/2025, 12/25, 12/23/2024, [...] Pap Test (07/11/2025 12:00 AM EDT) [place] [address] Metrology Technician: Nicola Root MD LIBRARY CIRCULATION ASSISTANT Cytology Report FINAL DIAGNOSIS A. PAP SMEAR (THIN PREP) CE: SPECIMEN ADEQUACY: Satisfactory for evaluation; transformation zone present. INTERPRETATION: NEGATIVE FOR INTRAEPITHELIAL LESION OR MALIGNANCY. This specimen was analyzed by the automated ThinPrep Imaging System (Yecuris Rodrigo.) and the selected heck were reviewed by a consumer loan processor. Electronically Signed Out By: RUDY Chacon(ASCP) The [...] by real-time polymerase chain reaction (PCR) at [facility], [address] [place] [address] using the FDA-approved BD Onclarity HPV Assay with extended genotyping. Uses of the assay in scenarios other than those approved by the FDA should be considered off-label use. The accuracy and precision of this test for all other off-label specimen sources has been verified in the Cytopathology Laboratory of the [facility] and has not been cleared or [...] : 1965 (Age: 60) Sex: F Institution: [facility] Location: [facility] Date of Collection: 07/11/2025 Date of Reported: 07/13/2025 15:26 Results to: Olga Woods MD [facility] Final Diagnosis A. PAP SMEAR (THIN PREP) CE: SPECIMEN ADEQUACY: Satisfactory for evaluation; transformation zone present. INTERPRETATION: NEGATIVE FOR INTRAEPITHELIAL LESION OR MALIGNANCY. This specimen was analyzed by the automated ThinPrep Imaging System ([employer].) and the selected heck were reviewed by a consumer loan processor. [facility] Results\Inter pretation A. PAP SMEAR (THIN PREP) CE: High-risk HPV Panel w/ extended genotyping NEG HPV 16-NEG HPV 18-NEG HPV 45-NEG HPV 33/58-NEG HPV 31-NEG HPV 56/59/66-NEG HPV 51-NEG HPV 52-NEG HPV 35/39/68-NEG Performed by real-time polymerase chain reaction (PCR) at [facility], [address] [place] [address] using the FDA-approved BD Onclarity HPV Assay with extended genotyping. Uses of the assay in scenarios other than those approved by the FDA should be considered off-label use. The accuracy and precision of this test for all other off-label specimen sources has been verified in the Cytopathology Laboratory of the [facility] and has not been cleared or approved by the U.S. Food and Drug Administration. Clinical correlation is advised. The assay assesses the E6/E7 DNA target and utilizes human beta globin as an internal control. Cytology and HPV testing are screening assays and should not be used as the sole means of detecting cancer. False-positives and false-negatives can occur. [facility] Conversion Type (Conversion Source) 07/11/2025 07/12/2025 9:07 AM EDT us Olga Woods MD CYTOLOGY ORDERABLES Edited Result - Final [facility] [address] [place] [address] * Mammogram Outside (No Interpretation) (01/18/2025 12:00 AM EST) Narrative SYSTEMGENERATED, DOCUMENTATION - 03/29/2025 11:25 AM EDT This study is for PACS storage only and not for interpretation. us Unknown Unknown MD FRANK OUTSIDE IMAGING W/OUT INT ERPRETATION Final Result from Last 3 Months or Most Recently Relevant to Health Maintenance Insurance MEDICARE PART A & B Member Subscriber Plan / Payer (Ef fective 2018-Present) Name:Jaylin Clifford Member ID:[id number] Relation to Subscriber:Self Name:Jaylin Clifford Subscriber ID:[id number] Payer ID:[id number] Group ID:Not on file Type:Medicare Address: [facility] [employer] [facility] [employer] [address] [facility] [place] [address] [facility] MEDICARE PART A & B [facility]ICARE PART A & [facility] B [facility] & [facility] Advance Directives For more information, please contact: [phone] (9AM - 5PM [facility], Friday-Friday) Documents on File Type Date Recorded Patient Office Systems Technology Instructor Expl anation Healthcare Proxy 03/29/2025 03/29/25 [facility] PROXY Care Teams Gerontology Aide Relationship Specialty Start Date End Date Denisha Schwartz MD [address] [place] [address] PCP - General Internal Medicine 03/18/25 Additional Source Comments The information contained in this document represents components of the legal health record. It is not the complete legal health record.[facility]
[2025-10-29 11:11] LABS: MANUAL DIFF FLAG NO
[2025-10-29 11:18] LABS: Hematocrit 39.0 % (37.0-47.0); Hemoglobin 13.0 g/dl (12.0-16.0); Imm Gran Abs Auto 0.01 X10*3/uL (0.00-0.03); Imm Gran Pct Auto 0.3 % (0.0-0.4); Lymphocytes Absolute Auto 0.8 X10*3/uL (1.2-4.9); Mean Corpuscular HGB Conc 33.3 g/dl (31.0-35.0); Mean Corpuscular Hemoglobin 31.0 pg (27.0-33.0); Mean Corpuscular Volume 93.1 fL (80.0-98.0); NRBC Abs Auto 0.000 X10*3/uL (0.0-0.012); NRBC Pct Auto 0.0 /100WBC (0.0-0.2); Platelet Count 260 X10*3/uL (160-400); Red Blood Count 4.19 X10*6/uL (4.20-5.50); White Blood Count 3.3 X10*3/uL (4.8-10.8)
[2025-10-29 12:33] LABS: Alanine Aminotransferase 510 U/L (0-31); Albumin Level 4.0 g/dL (3.5-5.0); Alkaline Phosphatase 117 U/L (39-117); Anion Gap 12 (12-20); Aspartate Amino Transferase 332 U/L (5-31); Blood Urea Nitrogen 16 mg/dL (9-16); Calcium 9.5 mg/dL (8.4-10.2); Carbon Dioxide 23 mmol/L (22-29); Chloride 110 mmol/L (96-108); Cholesterol 172 mg/dL (<200); Estimated Glomerular Filt Rate > 60; HDL Cholesterol 71 mg/dL (>40); Potassium 4.1 mmol/L (3.3-5.1); Sodium 141 mmol/L (135-145); Total Protein 6.6 g/dL (6.5-8.0); Triglycerides 85 mg/dL (<150)
== END 2025-10-29 08:28 | disposition home or self-care (01) ==
LOC: HO.HMGCLDS 08:27
PROVIDERS: Absent Provider Internal Medicine Medical Oncology; PCP Internal Medicine; Visit Provider Internal Medicine
DX: E78.00 Pure hypercholesterolemia, unspecified (principal); C50.911 Malignant neoplasm of unspecified site of right female breast
CPT/HCPCS: 36415; 80053; 80061; 85025

== ENCOUNTER 2025-11-01 10:25 | Outpatient (AMB) | payer MEDICARE, MEDICAID, SELFPAY ==
[2025-11-01 11:25] VITALS: BP 136/92; PULSE 83; RESP 16; TEMP 36.7; O2SAT 96; BMI 41.7
--- NOTE | 2025-11-01 11:25 | A.OFFPC_ITS ---
Vital Signs 11/01/25 11:25 Height 5 ft 8 in Weight 274 lb BMI 41.7 BP 136/92 H Blood Pressure Location Lt brachial Position Sitting Respiration 16 Pulse 83 Pulse Source Pulse Oximeter Temp 98.0 F Temp Source Oral Pulse Oximetry (%) 96 Oxygen Delivery Method Room Air Intake Visit Reasons: 3 months f/up Intake Note: Pt is here today for her 3mo. f/u Assessment Technician Required: No Allergies No Known Allergies Allergy (Verified 11/01/25 11:37) Medication List - Last Reconciled 11/01/25 by Denisha Schwartz MD bupropion HCl XL 150 mg PO QAM calcium citrate-vitamin D3 315 mg-5 mcg (200 unit) 1 tab PO BID cholecalciferol (vitamin D3) 50 mcg PO DAILY clotrimazole-betamethasone 1-0.05 % 1 appl topical BID 10 days famotidine 40 mg PO DAILY fluoxetine 40 mg PO DAILY fluticasone propionate 50 mcg/actuation 1 spray intranasal DAILY hydrochlorothiazide 12.5 mg PO letrozole 2.5 mg PO DAILY levocetirizine 5 mg PO DAILY wgqdacioevlt-uwj-mzyh-FA-vit K 45 mg iron- 800 mcg-120 mcg (Bariatric Multivitamins) 45 caps PO DAILY ribociclib (Kisqali) mg PO rivaroxaban (Xarelto) 10 mg PO DAILY rosuvastatin 5 mg PO DAILY Tobacco use date assessed: 11/01/25 Dental Screening Dental Screen Date: 10/10/25 HPI 3 months f/up HPI Details 60 year-old lady with past medical histo ry significant for pulmonary embolism right DVT currently on Xarelto, recently diagnosed with breast cancer, currently on letrozole, and started on Kisqali, has osteoarthritis, depression, hypertension, hyperlipidemia, seasonal allergies, morbid obesity status post gastric bypass, here today for her follow-up . She has been feeling well, with no complaints at present time. HPI Comments History of Present Illness Details 60 year-old lady with past medical histo ry significant for pulmonary embolism right DVT currently on Xarelto, recently diagnosed with breast cancer, currently on letrozole, and started on Kisqali, has osteoarthritis, depression, hypertension, hyperlipidemia, seasonal allergies, morbid obesity status post gastric bypass, here today for her follow-up . Latest lab work revealed markedly elevated liver enzymes. The patient has a history of breast cancer and started taking Kisqali (ribociclib) at a dose of 400 mg and letrozole after her radiation therapy, which concluded after August. She has experienced some initial nausea with the new medication, which is no longer frequent, but currently endorses fatigue and occasional abdominal pain. She had a screening colonoscopy on October 14 which showed presence of diverticulosis, internal hemorrhoids, and a precancerous polyp (tubular adenoma) that was removed. Rest of her lab results showed lipids and hemoglobin A1c within normal limits [facility] Medical History (Updated 11/02/25 @ 00:52 by Denisha Schwartz MD) History of adenomatous polyp of colon Elevated liver enzymes Hx of radiation therapy DVT (deep venous thrombosis) Umbilical hernia Uterine fibroid Cervical dysplasia Primary osteoarthritis of both knees Seasonal allergies Steatosis, liver History of pulmonary embolism Osteoarthritis Depression Gastric reflux Hiatal hernia Hypertension Hyperlipidemia Surgical History (Updated 11/02/25 @ 00:52 by Denisha Schwartz MD) History of left knee replacement Hx of dilation and curettage History of repair of hiatal hernia History of esophagogastroduodenoscopy (EGD) H/O colonoscopy History of ERCP History of lumpectomy of right breast (02/03/25) S/P gastric bypass Status post right knee replacement History of right hip replacement History of cholecystectomy H/O umbilical hernia repair Family History Father Mental health disorder Sister Lymph node cancer Mental health disorder Thyroid disorder Mother Lymph node cancer Mental health disorder Mother Tumor Brother Substance use disorder Social History Household Members: Spouse Housing: Apartment Are you a primary child care provider to a significant other at home: No Do you presently have visiting nurse or other home services: No Alcohol intake: current Alcohol intake frequency: holidays/special occasions only Patient Tobacco Use Status: Never used Tobacco e-Cigarette/Vaping Use: Never Used service: No Current occupational status: unemployed and disabled Gender identity: Female Cognitive needs: No Hearing needs: No Vision needs: Yes Female Reproductive History Menstrual Age of Menarche: 12 Questionnaire PHQ-9 Over the last 2 weeks, how often have you been bothered by any of the following problems? 1. Little interest or pleasure in doing things: several days 2. Feeling down, depressed, or hopeless: several days 3. Trouble falling or staying asleep, or sleeping too much: more than half the days 4. Feeling tired or having little energy: more than half the days 5. Poor appetite or overeating: several days 6. Feeling bad about yourself - or that you are a failure or have let yourself or your family down: several days 7. Trouble concentrating on things, such as reading the newspaper or watching television: several days 8. Moving or speaking so slowly that other people could have noticed. Or the opp osite - being so fidgety or restless that you have been moving around a lot more than usual: not at all 9. Thoughts that you would be better off or of hurting yourself in some way: not at all Total score: 9 Source: Developed by Drs. Tye May, Courtney Bolaños, Lee Candelaria and colleagues, with an educational joann from [employer]. Thrive Questionnaire Date Thrive assessed: 01/11/25 I am a: Patient What is your living situation today?: I have a place to live, but I am worried about losing it in the future Within the past 12 months, did the food you bought not last and you didn't have the money to get more?: Sometimes True Within the past 12 months, did you worry whether your food would run out before you got money to buy more?: Often true Do you have trouble paying for medicines?: Yes Do you have trouble getting transportation to medical appointments?: Yes Do you have trouble paying your heating and electricity bill?: Yes Do you have trouble taking care of your child, family member or friend?: No Do you have trouble with day-to-day activities such as bathing, preparing meals, shopping, managing finances, etc.?: Yes Are you currently unemployed and looking for a job?: Yes Are you interested in more education?: No Currently or been in a relationship where the following occur: No concerns reported THRIVE Score: 5 ENDY-7 AMB Questionnaire EDNY-7 Date ENDY - 7 assessed: 08/02/25 Feeling nervous, anxious, or on edge: 0 = Not at all Not being able to stop or control worryin = Not at all Worrying too much about different things: 0 = Not at all Trouble relaxin = Not at all Being so restless that it is hard to sit still: 0 = Not at all Becoming easily annoyed or irritable: 0 = Not at all Feeling afraid as if something awful might happen: 0 = Not at all Total ENDY-7 score (0-4 normal; 5-9 mild; 10-14 moderate; 15-21 severe): 0 Source: Developed by Drs. Tye May, Courtney Bolaños, Lee Candelaria and colleagues, with an educational joann from [employer]. Review of Systems Const Reports as per HPI Eyes Reports no additional complaints and Denies change in vision ENT Details: Occasional epistaxis and recurrent postnasal drainage Card Denies chest pain, Denies rapid heart rate, Denies irregular heart rhythm and Denies lightheadedness Resp Denies cough GI Reports as per HPI Reports no additional complaints Musc Reports no additional complaints Neuro Reports no additional complaints Psych Reports no additional complaints Endo Reports no additional complaints [place]/Lymph Reports as per HPI Aller/Immun Reports as per HPI Physical exam (Primary Care) Vital Signs: Last Vital Signs Temp 98.0 F 11/01/25 11:25 Pulse 83 11/01/25 11:25 Resp 16 11/01/25 11:25 BP 136/92 H 11/01/25 11:25 Pulse Ox 96 11/01/25 11:25 Oxygen Delivery Method Room Air 11/01/25 11:25 BMI result Body Mass Index 41.7 Tobacco/Smoking Status: Tobacco use Status Tobacco use date assessed 11/01/25 11/01/25 11:31 Patient Tobacco Use Status Never used Tobacco 11/01/25 11:31 e-Cigarette/Vaping Use Never Used 11/01/25 11:31 PHQ-9: PHQ-9 Score PHQ-9: Total score 9 11/01/25 11:38 Thrive Assessment: Date of Thrive Assessment Date Thrive assessed 01/11/25 11/01/25 11:31 Currently or been in a relationship where the following occur: No concerns reported Narrative Physical Exam - Skin: No jaundice observed. Const Other: Obese, Alert oriented x3, ambulatory with normal gait [facility] General nose exam: Normal external nose present Face and sinus: Yes face symmetric Mouth: moist mucous membranes Eyes General: appearance normal, both eyes and all related structures Neck Other: Supple, no lymphadenopathy thyroid gland nonpalpable Resp Auscultation: clear to auscultation bilaterally Cardio Other: S1-S2 present regular rate and rhythm GI Other: Obese, soft, nontender with no mass palpated Skin General skin exam: no rashes or lesions noted and no jaundice Neuro General: gait normal, tone normal, moves all extremities and no focal motor deficits Extrem General: Yes full ROM, Yes no clubbing, cyanosis or edema and Yes normal gait Psych Appearance: grossly normal and well kempt Mental Status: mental status grossly normal Speech and movement: Normal speech and movement present Affect: normal affect Office Procedures Flu Questionnaire Does the patient have a severe egg allergy?: No Does the patient have severe life threatening allergies?: No Does the patient have a fever or illness today?: No Has the patient ever had Guillain-Horton Syndrome?: No Has the patient ever had any past reaction to a flu shot?: No Immunizations Fluarix [id number] (PF) 45 mcg (15 mcg x 3)/0.5 mL IM syringe Performing Provider: Denisha Schwartz MD Performing Location[place] [facility] Administered by: Maria Esther Lobo CMA on 11/01/25 11:35 Dose Route Admin Location Dispensed Lot Number Expiration Date 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 0.5 mL IM Left Deltoid 0.5 mL [id number] 05/23/26 [id number] [employer] VIS Given Date VIS Provided VIS Publication Date 11/01/25 Single Vaccine 24 Eligibility Eligibility Date Funding Source Not [facility] Eligible 11/01/25 Private Results Reviewed Results Reviewed: monica: Ramandeep Clifford Age/Sex: 60/F : 1965 Unit#: [id number] Attend Dr: Denisha Schwartz MD Re10/29/25 Status: DEP REF Location: [facility] Disch: SPEC : [id number] GARRISON: 10/29/25-0832 STATUS: COMP REQ : [id number] RECD: 10/29/25-[address]: Denisha Schwartz MD COMP: 10/29/25-1233 ENTERED: 10/29/[address] [facility] [address]: Rosalind Covarrubias MD ORDERED: CMP, Lipid Panel/R Test Result Flag Reference Sodium 141 135-145 mmol/L Potassium 4.1 3.3-5.1 mmol/L CL 110 H 96-108 mmol/L CO2 23 22-29 mmol/L Gap 12 12-20 BUN 16 9-16 mg/dL Creat 0.77 0.5-1.4 mg/dL eGFR > 60 Chronic Kidney Disease: Estimated GFR < 60 mL/min/1.73m2 Severe Kidney Disease: Estimated GFR < 15 mL/min/1.73m2 Glucose, Random 98 60-115 mg/dL CA 9.5 8.4-10.2 mg/dL Total Bili 0.9 0.0-1.0 mg/dL AST (GOT) 332 H 5-31 U/L ALT (GPT) 510 H 0-31 U/L Protein, Total 6.6 6.5-8.0 g/dL Alb 4.0 3.5-5.0 g/dL Triglyceride 85 <150 mg/dL Desirable Triglyceride: less than 150 mg/dL Borderline High Triglyceride 150-199 mg/dL High Triglyceride: 200-499 mg/dL Very High Triglyceride: greater than or equal to 5OO mg/dL Cholesterol 172 <200 mg/dL Desirable Cholesterol: less than 200 mg/dL Borderline High Cholesterol: 200-239 mg/dL High Cholesterol: greater than 239 mg/dL LDL Calculated 84 <100 mg/dL Desirable LDL: less than 100 mg/dL Near Optimal/Above Optimal LDL: 110-129 mg/dL Borderline High LDL: 130-159 mg/dL High LDL: 160-189 mg/dL Very High LDL: greater than or equal to 190 mg/dL HDL 71 >40 mg/dL Desirable HDL: greater than 40 mg/dL Note: This HDL assay may give artificially low results in patients with liver disease. Alk Phos 117 39-117 U/L Name: Ramandeep Clifford Age/Sex: 60/F : 1965 Unit#: [id number] Attend Dr: Denisha Schwartz MD Re10/29/25 Status: DEP REF Location: [facility] Disch: SPEC : [id number] GARRISON: 10/29/25 STATUS: COMP REQ : [id number] RECD: 10/29/[address]: Rosalind Covarrubias MD COMP: 10/29/25 ENTERED: 10/29/[address] [facility] [address]: Denisha Schwartz MD ORDERED: CBC Auto Diff Test Result Flag Reference WBC 3.3 L 4.8-10.8 X10*3/uL RBC 4.19 L 4.20-5.50 X10*6/uL HGB 13.0 12.0-16.0 g/dl HCT 39.0 37.0-47.0 % MCV 93.1 80.0-98.0 fL MCH 31.0 27.0-33.0 pg MCHC 33.3 31.0-35.0 g/dl RDW 16.3 H 11.0-16.0 % PLT 260 # 160-400 X10*3/uL MPV 9.3 L 9.4-12.3 fL Neut Pct Auto 61.9 45-73 % ImGran Pct Auto 0.3 0.0-0.4 % Lymp Pct Auto 24.9 20-40 % Alexander Pct Auto 9.8 2-11 % Eos Pct Auto 2.2 0-4 % Baso Pct Auto 0.9 0-2 % NRBC Pct Auto 0.0 0.0-0.2 /100WBC ANC Neut Abs # 2.0 2.0-8.3 x10*3/uL ImGran Abs Auto 0.01 0.00-0.03 X10*3/uL Lymph Abs Auto 0.8 L 1.2-4.9 X10*3/uL Alexander Abs Auto 0.3 0.1-1.2 X10*3/uL Eos Abs Auto 0.1 0.0-0.4 X10*3/uL Baso Abs Auto 0.0 0.0-0.2 X10*3/uL NRBC Abs Auto 0.000 0.0-0.012 X10*3/uL Coding Level of Care Code Est Pt Level 4 (25942) Diagnoses Pure hypercholesterolemia E78.00 Hyperlipidemia type: pure hypercholesterolemia Essential hypertension I10 Hypertension type: essential hypertension Invasive ductal carcinoma of right breast C50.911 Elevated liver enzymes R74.8 History of adenomatous polyp of colon Z86.0101 Assessment & Plan Assessment & Plan (1) Hyperlipidemia: Code(s): E78.5 - Hyperlipidemia, unspecified Category: Medical Qualifiers: Hyperlipidemia type: pure hypercholesterolemia Qualified Code(s): E78.00 - Pure hypercholesterolemia, unspecified Plan: Fasting lipids are within normal limits, continued on rosuvastatin 5 mg daily (2) Hypertension: Code(s): I10 - Essential (primary) hypertension Category: Medical Qualifiers: Hypertension type: essential hypertension Qualified Code(s): I10 - Essential (primary) hypertension Plan: Currently on hydrochlorothiazide 12.5 mg daily (3) Invasive ductal carcinoma of right breast: Code(s): C50.911 - Malignant neoplasm of unspecified site of right female breast Category: Medical Plan: Followed by [place] oncology clinic [place] [facility], currently on letrozole and started on Kisqali (4) Elevated liver enzymes: Code(s): R74.8 - Abnormal levels of other serum enzymes Category: Medical Plan: Markedly elevated liver enzymes as compared to 2 months ago, likely a side effect of Kisqali. Patient advised to consult with Dr. Covarrubias to see if any dosage adjustment needs to be made or temporary discontinuation of medication as needed. Patient currently asymptomatic (5) History of adenomatous polyp of colon: Comment: Seen on colonoscopy [address] Quintanilla, repeat colonoscopy again in 5 years Code(s): Z86.0101 - Personal history of adenomatous and serrated colon polyps Category: Medical Plan: Repeat colonoscopy due again in 5 years 2030 Plan Patient was informed and verbally consented to the use of an ambient scribe for clinic note documentation during this visit. Orders: Orders Influenza [id number] Immunization 11/01/25 Z23 - Encounter for immunization Aspartate Amino Transferase 6 Months C50.911 - Malignant neoplasm of unspecified site of right female breast, E78.00 - Pure hypercholesterolemia, unspecified, I10 - Essential (primary) hypertension, R74.8 - Abnormal levels of other serum enzymes Alanine Aminotransferase 6 Months C50.911 - Malignant neoplasm of unspecified site of right female breast, E78.00 - Pure hypercholesterolemia, unspecified, I10 - Essential (primary) hypertension, R74.8 - Abnormal levels of other serum enzymes Lipid Panel 6 Months C50.911 - Malignant neoplasm of unspecified site of right female breast, E78.00 - Pure hypercholesterolemia, unspecified, I10 - Essential (primary) hypertension, R74.8 - Abnormal levels of other serum enzymes
== END 2025-11-01 12:42 | disposition home or self-care (01) ==
LOC: HO.HMCC 10:26
PROVIDERS: PCP Internal Medicine; Visit Provider Internal Medicine
DX: E78.00 Pure hypercholesterolemia, unspecified (principal); I10 Essential (primary) hypertension; C50.911 Malignant neoplasm of unspecified site of right female breast; R74.8 Abnormal levels of other serum enzymes; Z86.0101 Personal history of adenomatous and serrated colon polyps

== ENCOUNTER → 2025-11-01 10:25 | Outpatient (BNVA) | payer MEDICARE, MEDICAID, SELFPAY | PROVIDERS: PCP Internal Medicine; Visit Provider Internal Medicine | DX: I10 Essential (primary) hypertension (principal); E78.00 Pure hypercholesterolemia, unspecified; C50.911 Malignant neoplasm of unspecified site of right female breast; R74.8 Abnormal levels of other serum enzymes; Z86.0101 Personal history of adenomatous and serrated colon polyps; Z23 Encounter for immunization; Z13.31 Encounter for screening for depression; Z86.711 Personal history of pulmonary embolism | CPT/HCPCS: 90471; 90656; 96127; 99212 ==

== ENCOUNTER 2025-11-07 09:11 | Outpatient (REF) | payer MEDICARE, MEDICAID, SELFPAY ==
[2025-11-07 10:07] LABS: MANUAL DIFF FLAG NO
[2025-11-07 10:15] LABS: Hematocrit 41.2 % (37.0-47.0); Hemoglobin 13.5 g/dl (12.0-16.0); Imm Gran Abs Auto 0.01 X10*3/uL (0.00-0.03); Imm Gran Pct Auto 0.2 % (0.0-0.4); Lymphocytes Absolute Auto 1.1 X10*3/uL (1.2-4.9); Mean Corpuscular HGB Conc 32.8 g/dl (31.0-35.0); Mean Corpuscular Hemoglobin 30.8 pg (27.0-33.0); Mean Corpuscular Volume 94.1 fL (80.0-98.0); NRBC Abs Auto 0.000 X10*3/uL (0.0-0.012); NRBC Pct Auto 0.0 /100WBC (0.0-0.2); Platelet Count 241 X10*3/uL (160-400); Red Blood Count 4.38 X10*6/uL (4.20-5.50); White Blood Count 4.0 X10*3/uL (4.8-10.8)
[2025-11-07 10:51] LABS: Alanine Aminotransferase 659 U/L (0-31); Albumin Level 4.1 g/dL (3.5-5.0); Alkaline Phosphatase 140 U/L (39-117); Anion Gap 13 (12-20); Aspartate Amino Transferase 500 U/L (5-31); Blood Urea Nitrogen 19 mg/dL (9-16); Calcium 9.5 mg/dL (8.4-10.2); Carbon Dioxide 23 mmol/L (22-29); Chloride 109 mmol/L (96-108); Estimated Glomerular Filt Rate > 60; Potassium 4.0 mmol/L (3.3-5.1); Sodium 141 mmol/L (135-145); Total Protein 6.7 g/dL (6.5-8.0)
== END 2025-11-07 09:12 | disposition home or self-care (01) ==
LOC: HO.HMGCLDS 09:11
PROVIDERS: PCP Internal Medicine; Visit Provider Internal Medicine Medical Oncology
DX: C50.911 Malignant neoplasm of unspecified site of right female breast (principal)
CPT/HCPCS: 36415; 80053; 85025

== ENCOUNTER 2025-11-11 07:15 | Outpatient (REF) | payer MEDICARE, MEDICAID, SELFPAY ==
--- OUTSIDE RECORDS SUMMARY | 2025-10-14 04:00 | XMS_ITS ---
Author Organization [facility] Address [address] [place] [address] Care Team Providers Care Realtime Captioner Name Role Phone Lana HUERTA, Denisha Primary Care Provider Tye Rachel [phone] REASON FOR VISIT dysphagia,screening, gerd Encounters Encounter Location Date Provider Diagnosis [facility] Outpatient [address] [place] [id number] 10/14/2025 Tye Quintanilla Plan Of Treatment No Information Progress Notes * ADRIANA CHADOB: 4 (60 yo F)Acc No.[id number]:10/14/2025 EGD and COL/MAC Patient: Paul ADRIANA FERNANDO Provider: Karen Quintanilla MD :1965 A ge:60 Y S ex:Female Date:10/14/2025 Address:[address] [place] [address] [address], [id number] Pcp:Denisha Schwartz MD Subjective: * Chief Complaints: * D ysphagia,screening, gerd Billing Information: * Procedure Codes: * The named appointment provid er may or may not be the originator of this progress note, and it is not deemed complete until electronically signed by the appointment provider. Sign off status: Pending * Provider: Karen Quintanilla MD Date: 12/14/2024 Generated for Chong badillo/Chrissy/eTransmitting on: 01/12/2025 07:16 AM EST
--- NOTE | ~2025-11-11 | US_ITS ---
CLINICAL HISTORY: Elevated LFTs US abdomen complete Comparison: None provided Findings: The visualized pancreas head is normal. The visualized aorta and inferior vena cava are normal caliber. The liver is normal in size, right lobe length is 15.8 cm. Mildly echogenic liver parenchyma, no hepatic lesion is seen. No intrahepatic bile duct dilatation. The common duct is 9 mm in diameter, within top-normal range for post cholecystectomy. Status post cholecystectomy. The main portal vein is patent with antegrade flow. Right renal lower pole and left renal upper pole are not well seen due to bowel gas. The right kidney is grossly normal, 9.7 cm in length. The left kidney is grossly normal, 9.4 cm in length. The spleen is normal, 10.3 cm in length. No free fluid in the abdomen. Impression: Mildly echogenic liver parenchyma, could be accentuated by body habitus, technique or related to parenchymal liver disease. This document has been electronically signed by: Sonia Tirado MD on 11/11/2025 11:45:36
--- OUTSIDE RECORDS SUMMARY | 2025-11-11 07:17 | XMS_ITS | Clinical Summary ---
Author Organization [facility] Address [address] [place] [id number] Phone Care Team Providers Care Apprenticeship Training Representative Name Role Phone Denisha Schwartz MD Primary [...] Cancer Staging:Pathologic: pT1c, pN0, cM0, ER: Positive, [place]: Positive, HER2: Negative - Signed by Kevin [...] Description 12/29/2025 2:00 PM EST Office Visit [facility] [address] [place] [id number] Kevin Painting MD [address] [place] [id number] [email or web address] Maintenance Due Date Last Done Comments [...] Pap Test (07/11/2025 12:00 AM EDT) [place] [address] Garden Equipment Mechanic: Nicola Root MD BROOMMAKER Cytology Report FINAL DIAGNOSIS A. PAP SMEAR (THIN PREP) CE: SPECIMEN ADEQUACY: Satisfactory for evaluation; transformation zone present. INTERPRETATION: NEGATIVE FOR INTRAEPITHELIAL LESION OR MALIGNANCY. This specimen was analyzed by the automated ThinPrep Imaging System ([employer] and the selected heck were reviewed by a child caregiver. Electronically Signed Out By: RUDY Chacon(ASCP) The [...] real-time polymerase chain reaction (PCR) at [facility], [address] [place] [address] using the FDA-approved BD Onclarity HPV Assay with extended genotyping. Uses of the assay in scenarios other than those approved by the FDA should be considered off-label use. The accuracy and precision of this test for all other off-label specimen sources has been verified in the Cytopathology Laboratory of the [facility] and has not been cleared or approved [...] : 1965 (Age: 60) Sex: F Institution: [facility] Location: [facility] Date of Collection: 07/11/2025 Date of Reported: 07/13/2025 15:26 Results to: Olga Woods MD [facility] Final Diagnosis A. PAP SMEAR (THIN PREP) CE: SPECIMEN ADEQUACY: Satisfactory for evaluation; transformation zone present. INTERPRETATION: NEGATIVE FOR INTRAEPITHELIAL LESION OR MALIGNANCY. This specimen was analyzed by the automated ThinPrep Imaging System ([employer] and the selected heck were reviewed by a child caregiver. [facility] Results\Inter pretation A. PAP SMEAR (THIN PREP) CE: High-risk HPV Panel w/ extended genotyping NEG HPV 16-NEG HPV 18-NEG HPV 45-NEG HPV 33/58-NEG HPV 31-NEG HPV 56/59/66-NEG HPV 51-NEG HPV 52-NEG HPV 35/39/68-NEG Performed by real-time polymerase chain reaction (PCR) at [facility], [address] [place] [address] using the FDA-approved BD Onclarity HPV Assay with extended genotyping. Uses of the assay in scenarios other than those approved by the FDA should be considered off-label use. The accuracy and precision of this test for all other off-label specimen sources has been verified in the Cytopathology Laboratory of the [facility] and has not been cleared or approved by the U.S. Food and Drug Administration. Clinical correlation is advised. The assay assesses the E6/E7 DNA target and utilizes human beta globin as an internal control. Cytology and HPV testing are screening assays and should not be used as the sole means of detecting cancer. False-positives and false-negatives can occur. [facility] Conversion Type (Conversion Source) 07/11/2025 07/12/2025 9:07 AM EDT us Olga Woods MD CYTOLOGY ORDERABLES Edited Result - Final [facility] [address] [place] [address] * Mammogram Outside (No Interpretation) (01/18/2025 12:00 AM EST) Narrative SYSTEMGENERATED, DOCUMENTATION - 03/29/2025 11:25 AM EDT This study is for PACS storage only and not for interpretation. us Unknown Unknown MD FRANK OUTSIDE IMAGING W/OUT INT ERPRETATION Final Result from Last 3 Months or Most Recently Relevant to Health Maintenance Insurance MEDICARE PART A & B [facility] MEDICARE PART A & B [facility] MEDICARE PART A & B [facility] PART A & B Member Subscriber Plan / Payer ( fective 2018-Present) Name:Jaylin Clifford Member ID:[id number] Relation to Subscriber:Self Name:Jaylin Clifford Subscriber ID:[id number] Payer ID:[id number] Group ID:Not on file Type:Medicare Address: [facility] [employer] [facility] 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 It is not the complete legal health record.[facility]
--- OUTSIDE RECORDS SUMMARY | 2025-11-11 07:17 | XMS_ITS | Patient Health Record ---
Author Organization [facility] Address [address] [place] [address] Care Team Providers Care Bale Piler Name Role Phone Lana HUERTA, Denisha Primary Care Provider Tye Rachel [phone] Results Component Value Reference Range Notes Pathology (Not yet reviewed by provider) Interpretation: Performing Lab:[facility], [address] [place] [phone] Notes/Report: Reason For Referral No Information Medications Medication [...] day Active Cholecalciferol 50 MCG (1999 [place]) Tablet 1 tablet Orally Once a [...] Miscellaneous: Marital status: single 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 Section Notes: Nonsmoker; no sig alcohol Nonsmoker; no sig alcohol Nonsmoker; no sig alcohol Problems Problem Type SNOMED Code ICD Code Onset Dates Problem Status W/U Status Risk Notes Problem Colon cancer screening (800433289) Colon cancer screening (Z12.11) Active confirmed Problem Dysphagia (50936668) Dysphagia (R13.10) Active confirmed Problem Gastroesophageal reflux disease (372470615) Gastroesophageal reflux disease, esophagitis presence not specified (K21.9) Active confirmed Problem Dysphagia (55421301) Pharyngoesophageal dysphagia (R13.14) Active confirmed Vital Signs Blood pressure diastolic 77 mm Hg 04/05/2025 Height 66 in 04/05/2025 Blood pressure systolic 111 mm Hg 04/05/2025 Weight 266 lbs 04/05/2025 BMI 42.93 kg/m2 04/05/2025 Procedures Procedure Date Ordered Date Performed Result Body Sit e UPPER GI ENDOSCOPY BALLOOON DILATION OF ESOPH 04/05/2025 N/A COLONOSCOPY 04/05/2025 N/A Encounters Encounter Location Date Provider Diagnosis [facility] Outpatient [address] [place], [place] [phone] 10/14/2025 Tye Quintanilla [facility] [address] [place] [address] 04/05/2025 Tye Quintanilla Gastroesophageal ref lux disease, esophagitis presence not specified K21.9 ; Dysphagia R13.10 and Colon cancer screening Z12.[address] [facility] [address] [place] [address] 10/13/2025 Tye Quintanilla Assessments Encounter Date Diagnosis (ICD Code) Assessment [...] 04/05/2025 COLONOSCOPY 04/05/2025 XR BARIUM SWALLOW-ESOPHAGUS 05/02/2014 Pathology 10/14/2025 Future Test Test Name Order Date COLONOSCOPY 12/08/2014 UPPER GI ENDOSCOPY BALLOOON DILATION OF ESOPH 03/16/2019 Insurance Providers Payer Name Payer Address Payer Phone Subscriber Number Group Number Insured Name Patient Relationship to Insured Coverage Start Date Coverage End Date MEDICARE OF [place] [address] [place] [address] [id number] GUERO CHA Self - patient is the insured 8 MEDICAID OF [facility] [address] [place] [phone] [id number] GUERO CHA Self - patient is the insured Medical (General) History Medical History History ICD Code GERD--02/15/2008 EGD --HH, g astric polyps, no esophagitis, no Hussein's--Lap. [place] as below Denies [place],DM,CVA,Lung disease,renal dise ase Depression Hyperlipidemia HTN PE [...] C Surgery for cervical cancer in her s Lap cholecystectomy-Dr. Torres 11/2017 Gastric bypass surgery and H H repair at [facility]--went from 347_# to 217_# 12/2017 Right hip replacement scheduled at [facility] for 05/15/19 Right knee replacement scheduled for 06/25 12/12 Left knee replacement scheduled for 08/25 019 Umbilical hernia x2 Lumpectomy as above 2024
== END 2025-11-11 07:16 | disposition home or self-care (01) ==
LOC: HO.US 07:15
PROVIDERS: PCP Internal Medicine; Referring Provider Internal Medicine; Visit Provider Internal Medicine Medical Oncology
DX: R79.89 Other specified abnormal findings of blood chemistry (principal); R74.8 Abnormal levels of other serum enzymes
CPT/HCPCS: 76700

== ENCOUNTER → 2025-11-11 07:17 | Outpatient (BNV) | payer MEDICARE, MEDICAID, SELFPAY | PROVIDERS: PCP Internal Medicine; Visit Provider Radiology Diagnostic Radiology | DX: K76.89 Other specified diseases of liver (principal) | CPT/HCPCS: 76700 ==

== ENCOUNTER 2025-11-14 07:36 | Outpatient (REF) | payer MEDICARE, MEDICAID, SELFPAY ==
--- OUTSIDE RECORDS SUMMARY | 2025-10-14 04:00 | XMS_ITS ---
Author Organization [facility] Address [address] [place] [address] Care Team Providers Care Longwall Shearer Operator Name Role Phone Lana HUERTA, Denisha Primary Care Provider Tye Rachel [phone] REASON FOR VISIT dysphagia,screening, gerd Encounters Encounter Location Date Provider Diagnosis [facility] Outpatient [address] [place] [id number] 10/14/2025 Tye Quintanilla Plan Of Treatment No Information Progress Notes * ADRIANA CHADOB: 4 (60 yo F)Acc No.[id number]:10/14/2025 EGD and COL/MAC Patient: Paul ADRIANA FERNANDO Provider: Karen Quintanilla MD :1965 A ge:60 Y S ex:Female Date:10/14/2025 Address:[address] [place] [address] [address], [id number] Pcp:Denisha Schwartz MD Subjective: * Chief Complaints: * D ysphagia,screening, gerd Billing Information: * Procedure Codes: * The named appointment provid er may or may not be the originator of this progress note, and it is not deemed complete until electronically signed by the appointment provider. Sign off status: Pending * Provider: Karen Quintanilla MD Date: 12/14/2024 Generated for Chong badillo/Chrissy/eTransmitting on: 01/15/2025 07:40 AM EST
--- OUTSIDE RECORDS SUMMARY | 2025-11-14 07:40 | XMS_ITS | Patient Health Record ---
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 Section Notes: Nonsmoker; no sig alcohol Nonsmoker; no sig alcohol Nonsmoker; no sig alcohol Problems Problem Type SNOMED Code ICD Code Onset Dates Problem Status W/U Status Risk Notes Problem Colon cancer screening (496170246) Colon cancer screening (Z12.11) Active confirmed Problem Dysphagia (10395098) Dysphagia (R13.10) Active confirmed Problem Gastroesophageal reflux disease (236786609) Gastroesophageal reflux disease, esophagitis presence not specified (K21.9) Active confirmed Problem Dysphagia (09601758) Pharyngoesophageal dysphagia (R13.14) Active confirmed Vital Signs Blood pressure diastolic 77 mm Hg 04/05/2025 Height 66 in 04/05/2025 Blood pressure systolic 111 mm Hg 04/05/2025 Weight 266 lbs 04/05/2025 BMI 42.93 kg/m2 04/05/2025 Procedures Procedure Date Ordered Date Performed Result Body Sit e UPPER GI ENDOSCOPY BALLOOON DILATION OF ESOPH 04/05/2025 N/A COLONOSCOPY 04/05/2025 N/A Encounters Encounter Location Date Provider Diagnosis [facility] Outpatient [address] [place], [place] [phone] 10/14/2025 Tye Quintanilla [facility] [address] [place] [address] 04/05/2025 Tye Quintanilla Gastroesophageal ref lux disease, esophagitis presence not specified K21.9 ; Dysphagia R13.10 and Colon cancer screening Z12.11 [facility] [address] [place] [address] 11/11/2025 Tye Quintanilla [facility] [address] [place] [address] 10/13/2025 Tye Quintanilla Assessments Encounter Date Diagnosis [...] Date MEDICARE OF [place] [address] [place] [address] [id number] GUERO CHA Self - patient is the insured 8 MEDICAID OF [facility] [address] [place] [address] [phone] [id number] GUERO CHA Self - patient is the insured Medical (General) History Medical History History ICD Code GERD--02/15/2008 EGD --HH, g astric polyps, no esophagitis, no Hussein's--Lap. Phylicia as below Denies [place],DM,CVA,Lung disease,renal dise ase Depression Hyperlipidemia HTN PE [...] bypass surgery and H H repair at [facility]--went from 347_# to 217_# 12/2017 Right hip replacement scheduled at [facility] for 05/15/19 Right knee replacement scheduled for 06/25 12/12 Left knee replacement scheduled for 08/25 019 Umbilical hernia x2 Lumpectomy as above 2024
[2025-11-14 10:03] LABS: MANUAL DIFF FLAG NO
[2025-11-14 10:14] LABS: Hematocrit 40.1 % (37.0-47.0); Hemoglobin 13.4 g/dl (12.0-16.0); Imm Gran Abs Auto 0.01 X10*3/uL (0.00-0.03); Imm Gran Pct Auto 0.2 % (0.0-0.4); Lymphocytes Absolute Auto 1.2 X10*3/uL (1.2-4.9); Mean Corpuscular HGB Conc 33.4 g/dl (31.0-35.0); Mean Corpuscular Hemoglobin 30.5 pg (27.0-33.0); Mean Corpuscular Volume 91.1 fL (80.0-98.0); NRBC Abs Auto 0.000 X10*3/uL (0.0-0.012); NRBC Pct Auto 0.0 /100WBC (0.0-0.2); Platelet Count 327 X10*3/uL (160-400); Red Blood Count 4.40 X10*6/uL (4.20-5.50); White Blood Count 5.3 X10*3/uL (4.8-10.8)
[2025-11-14 10:31] LABS: Alanine Aminotransferase 422 U/L (0-31); Albumin Level 3.9 g/dL (3.5-5.0); Alkaline Phosphatase 133 U/L (39-117); Anion Gap 12 (12-20); Aspartate Amino Transferase 304 U/L (5-31); Blood Urea Nitrogen 12 mg/dL (9-16); Calcium 8.9 mg/dL (8.4-10.2); Carbon Dioxide 22 mmol/L (22-29); Chloride 111 mmol/L (96-108); Estimated Glomerular Filt Rate > 60; Potassium 4.0 mmol/L (3.3-5.1); Sodium 141 mmol/L (135-145); Total Protein 6.4 g/dL (6.5-8.0)
[2025-11-14 11:01] LABS: HBS Num1 0.73 mIU/mL (0-7.99); HBc Num1 0.14 S/CO (0.00-0.79); HBsAGNum1 0.38 S/CO (0.00-0.99); Hepatitis B Surface Antigen Negative (Negative); ~HepC Num1 0.12 S/CO (0.00-0.79); ~Hepatitis B Surface Antibody NONREACTIVE (Nonreactive); ~Hepatitis C Antibody Nonreactive (Nonreactive)
== END 2025-11-14 07:37 | disposition home or self-care (01) ==
LOC: HO.HMGCLDS 07:36
PROVIDERS: PCP Internal Medicine; Referring Provider Internal Medicine; Visit Provider Internal Medicine Medical Oncology
DX: R74.8 Abnormal levels of other serum enzymes (principal); Z01.84 Encounter for antibody response examination
CPT/HCPCS: 36415; 80053; 85025; 86704; 86706; 86803; 87340

== ENCOUNTER 2025-11-22 10:54 | Outpatient (REF) | payer MEDICARE, MEDICAID, SELFPAY ==
--- OUTSIDE RECORDS SUMMARY | 2025-10-14 04:00 | XMS_ITS ---
Author Organization [facility] Address [address] [place] [address] Care Team Providers Care Steam Service Inspector Name Role Phone Lana HUERTA, Denisha Primary Care Provider Tye Rachel [phone] REASON FOR VISIT dysphagia,screening, gerd Encounters Encounter Location Date Provider Diagnosis [facility] Outpatient [address] [place] [address] [phone] 10/14/2025 Tye Quintanilla Plan Of Treatment No Information Progress Notes * ADRIANA CHADOB: 4 (60 yo F)Acc No.[id number]:10/14/2025 EGD and COL/MAC Patient: Paul ADRIANA FERNANDO Provider: Karen Quintanilla MD :1965 A ge:60 Y S ex:Female Date:10/14/2025 Address:[address] [place] [address] [address], [id number] Pcp:Denisha Schwratz MD Subjective: * Chief Complaints: * D ysphagia,screening, gerd Billing Information: * Procedure Codes: * The named appointment provid er may or may not be the originator of this progress note, and it is not deemed complete until electronically signed by the appointment provider. Sign off status: Pending * Provider: Karen Quintanilla MD Date: 12/14/2024 Generated for Chong badillo/Chrissy/eTransmitting on: 02:48 PM EST
--- NOTE | ~2025-11-22 | MM_ITS ---
EXAMINATION: MM DIAGNOSTIC DIGITAL BREAST TOMOSYNTHESIS, BILATERAL CLINICAL INFORMATION: History of right breast cancer December 2024 status post lumpectomy. COMPARISON: Mammography: Comparison is made with relevant prior exams. TECHNIQUE: Digital breast mammography with tomosynthesis is performed in both the craniocaudal and mediolateral oblique views along with computer-aided detection (CAD). FINDINGS: There are scattered areas of fibroglandular density. Right post lumpectomy changes. There are no significant masses, abnormal calcifications, or other abnormalities. Results are provided to the patient at time of visit by the technologist. MM/MM tomosynthesis diagnostic BI IMPRESSION: No mammographic evidence of malignancy. ASSESSMENT: BI-RADS Category 2: Benign RECOMMENDATION: 1 year F/U This patient's information was entered into a reminder system with a target due date for their next mammogram. Electronically signed by: Amaris Christina DO 11/22/2025 11:57 AM [facility]
--- OUTSIDE RECORDS SUMMARY | 2025-11-22 14:48 | XMS_ITS | Clinical Summary ---
Author Organization [facility] Address [address] [place] [address] Phone Care Team Providers Care Director Of Athletics Name Role Phone Denisha Schwartz MD Primary [...] Cancer Staging:Pathologic: pT1c, pN0, cM0, ER: Positive, VT: Positive, HER2: Negative - Signed by Kevin [...] Description 12/29/2025 2:00 PM EST Office Visit [facility] [address] [place] [address] Kevin Painting MD [address] [place] [id number] [email or web address] Due Date Last Done Comments [...] Pap Test (07/11/2025 12:00 AM EDT) [place] [address] Field Director: Nicola Root MD EMPLOYEE DEVELOPMENT DIRECTOR Cytology Report FINAL DIAGNOSIS A. PAP SMEAR (THIN PREP) CE: SPECIMEN ADEQUACY: Satisfactory for evaluation; transformation zone present. INTERPRETATION: NEGATIVE FOR INTRAEPITHELIAL LESION OR MALIGNANCY. This specimen was analyzed by the automated ThinPrep Imaging System ([employer].) and the selected heck were reviewed by a ash kier boiler. Electronically Signed Out By: RUDY Chacon(ASCP) The [...] by real-time polymerase chain reaction (PCR) at [facility], [address] [place] [address] using the FDA-approved BD Onclarity HPV Assay with extended genotyping. Uses of the assay in scenarios other than those approved by the FDA should be considered off-label use. The accuracy and precision of this test for all other off-label specimen sources has been verified in the Cytopathology Laboratory of the [facility] and has not been cleared or approved [...] : 1965 (Age: 60) Sex: F Institution: [facility] Location: [facility] Date of Collection: 07/11/2025 Date of Reported: 07/13/2025 15:26 Results to: Olga Woods MD [facility] Final Diagnosis A. PAP SMEAR (THIN PREP) CE: SPECIMEN ADEQUACY: Satisfactory for evaluation; transformation zone present. INTERPRETATION: NEGATIVE FOR INTRAEPITHELIAL LESION OR MALIGNANCY. This specimen was analyzed by the automated ThinPrep Imaging System ([employer].) and the selected heck were reviewed by a ash kier boiler. [facility] Results\Inter pretation A. PAP SMEAR (THIN PREP) CE: High-risk HPV Panel w/ extended genotyping NEG HPV 16-NEG HPV 18-NEG HPV 45-NEG HPV 33/58-NEG HPV 31-NEG HPV 56/59/66-NEG HPV 51-NEG HPV 52-NEG HPV 35/39/68-NEG Performed by real-time polymerase chain reaction (PCR) at [facility], [address] [place] [address] using the FDA-approved BD Onclarity HPV Assay with extended genotyping. Uses of the assay in scenarios other than those approved by the FDA should be considered off-label use. The accuracy and precision of this test for all other off-label specimen sources has been verified in the Cytopathology Laboratory of the [facility] and has not been cleared or approved by the U.S. Food and Drug Administration. Clinical correlation is advised. The assay assesses the E6/E7 DNA target and utilizes human beta globin as an internal control. Cytology and HPV testing are screening assays and should not be used as the sole means of detecting cancer. False-positives and false-negatives can occur. [facility] Conversion Type (Conversion Source) 07/11/2025 07/12/2025 9:07 AM EDT us Olga Woods MD CYTOLOGY ORDERABLES Edited Result - Final [facility] [address] [place] [address] * Mammogram Outside (No Interpretation) (01/18/2025 12:00 AM EST) Narrative SYSTEMGENERATED, DOCUMENTATION - 03/29/2025 11:25 AM EDT This study is for PACS storage only and not for interpretation. us Unknown Unknown MD FRANK OUTSIDE IMAGING W/OUT INT ERPRETATION Final Result from Last 3 Months or Most Recently Relevant to Health Maintenance Insurance MEDICARE PART A & B [facility] MEDICARE PART A & [facility] MEDICARE PART A & [facility] MEDICARE PART A & B [facility] MEDICARE PART A & B [place] MEDICARE PART A & B [facility] Advance Directives For more information, please contact: [phone] (9AM - 5PM [facility], Friday-Friday) Documents on File Type Date Recorded Patient Investigations Consultant Expl anation Healthcare Proxy 03/29/2025 03/29/25 [facility] PROXY Care Teams Director Of Athletics Relationship Specialty Start Date End Date Denisha Schwartz MD [address] [place] [address] PCP - General Internal Medicine 03/18/25 Additional Source Comments The information contained in this document represents components of the legal health record. It is not the complete legal health record.[facility]
--- OUTSIDE RECORDS SUMMARY | 2025-11-22 14:48 | XMS_ITS | Patient Health Record ---
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 Section Notes: Nonsmoker; no sig alcohol Nonsmoker; no sig alcohol Nonsmoker; no sig alcohol Problems Problem Type SNOMED Code ICD Code Onset Dates Problem Status W/U Status Risk Notes Problem Colon cancer screening (926518137) Colon cancer screening (Z12.11) Active confirmed Problem Dysphagia (53766257) Dysphagia (R13.10) Active confirmed Problem Gastroesophageal reflux disease (088256099) Gastroesophageal reflux disease, esophagitis presence not specified (K21.9) Active confirmed Problem Dysphagia (89701488) Pharyngoesophageal dysphagia (R13.14) Active confirmed Vital Signs Blood pressure diastolic 77 mm Hg 04/05/2025 Height 66 in 04/05/2025 Blood pressure systolic 111 mm Hg 04/05/2025 Weight 266 lbs 04/05/2025 BMI 42.93 kg/m2 04/05/2025 Procedures Procedure Date Ordered Date Performed Result Body Sit e UPPER GI ENDOSCOPY BALLOOON DILATION OF ESOPH 04/05/2025 N/A COLONOSCOPY 04/05/2025 N/A Encounters Encounter Location Date Provider Diagnosis [facility] [place] [address] [place], [place] [phone] 10/14/2025 Tye Quintanilla [facility] [address] [place] [address] 04/05/2025 Tye Quintanilla Gastroesophageal ref lux disease, esophagitis presence not specified K21.9 ; Dysphagia R13.10 and Colon cancer screening Z12.11 [facility] [address] [place] [address] 11/11/2025 Tye Quintanilla [facility] [address] [place] [address] 10/13/2025 Tye Quintanlila Assessments Encounter Date Diagnosis (ICD Code) Assessment [...] OF [place] [address] [place] [address] [id number] GUERO CHA Self - patient is the insured 8 MEDICAID OF [facility] [address] [place] [address] [id number] GUERO CHA Self - patient is the insured Medical (General) History Medical History History ICD Code GERD--02/15/2008 EGD --HH, g astric polyps, no esophagitis, no Hussein's--Lap. Phylicia as below Denies [place],DM,CVA,Lung disease,renal dise ase Depression Hyperlipidemia HTN PE [...] bypass surgery and H H repair [place] [facility]--went from 347_# to 217_# 12/2017 Right hip replacement scheduled at [facility] for 05/15/19 Right knee replacement scheduled for 06/25 12/12 Left knee replacement scheduled for 08/25 019 Umbilical hernia x2 Lumpectomy as above 2024
== END 2025-11-22 10:55 ==
LOC: HO.MAMMO 10:54
PROVIDERS: PCP Internal Medicine; Visit Provider Internal Medicine Medical Oncology
DX: M85.89 Other specified disorders of bone density and structure, multiple sites (principal); Z90.11 Acquired absence of right breast and nipple; Z85.3 Personal history of malignant neoplasm of breast
CPT/HCPCS: 77062; 77066

== ENCOUNTER → 2025-11-22 11:00 | Outpatient (BNV) | payer MEDICARE, MEDICAID, SELFPAY | PROVIDERS: PCP Internal Medicine; Visit Provider Internal Medicine | DX: Z85.3 Personal history of malignant neoplasm of breast (principal) | CPT/HCPCS: 77066; G0279 ==